=== PATIENT | female | born 1945 | race Caucasian/White ===

== ENCOUNTER 2016-06-18 19:05 | Inpatient (IN) | payer MEDICARE, OTHER ==
[2016-06-18] MEDS ORDERED: NORMAL SALINE 1000 ML 1,000 ML IV ONE (19:50)
[2016-06-18] MEDS ORDERED: ONDANSETRON 4 MG TAB.RAPDIS PO ONE (19:51)
--- NOTE | 2016-06-18 19:57 | ER Document Report ---
ED Medical Screen (RME) - General Chief Complaint: Abdominal Pain Stated Complaint: NAUSEA TRAVEL OUTSIDE OF THE [place] IN LAST 30 DAYS: No - HPI Notes: 06/18/16 19:57 Abdominal pain nausea bowel movement today was normal. - Related Data Allergies/Adverse Reactions: codeine [Codeine] Allergy (Unknown, Verified 06/18/16 19:08) morphine [Morphine] Allergy (Unknown, Verified 06/18/16 19:08) Penicillins Allergy (Unknown, Verified 06/18/16 19:08) Rash Past Medical History - Past Medical History Cardiac Medical History: Reports: Hx Hypertension Denies: Hx Coronary Artery Disease, Hx Heart Attack Pulmonary Medical History: Reports: Hx Asthma Denies: Hx Bronchitis, Hx COPD, Hx Pneumonia Neurological Medical History: Denies: Hx Cerebrovascular Accident, Hx Seizures Renal/ Medical History: Denies: Hx Peritoneal Dialysis Musculoskeltal Medical History: Reports Hx Arthritis - L.hand Past Surgical History: Reports: Hx Hysterectomy. Denies: Hx Pacemaker - Immunizations Hx Diphtheria, Pertussis, Tetanus Vaccination: Yes Review of Systems - Review of Systems Gastrointestinal: Abdominal pain, Nausea Physical Exam - Vital signs Vitals: Temp Pulse Resp BP Pulse Ox 97.6 F 89 16 189/81 H 97 06/18/16 19:10 06/18/16 19:10 06/18/16 19:10 06/18/16 19:10 06/18/16 19:10 - Respiratory Respiratory status: No respiratory distress Chest status: Nontender Breath sounds: Normal Chest palpation: Normal Course - Re-evaluation Re-evalutation: 06/18/16 19:57 I have greeted and performed a rapid initial assessment of this patient. A comprehensive ED assessment and evaluation of the patient, analysis of test results and completion of the medical decision making process will be conducted by additional ED providers. - Vital Signs Vital signs: Temp Pulse Resp BP Pulse Ox 97.6 F 89 16 189/81 H 97 06/18/16 19:10 06/18/16 19:10 06/18/16 19:10 06/18/16 19:10 06/18/16 19:10
[2016-06-18 20:16] LABS: ABSOLUTE EOSINOPHILS # (AUTO) 0.1 10^3/uL (0.0-0.6); ABSOLUTE LYMPHOCYTES (AUTO) 1.3 10^3/uL (0.5-4.7); ABSOLUTE NEUT (AUTO) 4.9 10^3/uL (1.7-8.2); BASOPHILS % (AUTO) 0.3 % (0-2); HEMATOCRIT 41.7 % (36.0-47.0); HEMOGLOBIN 14.6 g/dL (12.0-15.5); HGB HCT DIFFERENCE 2.1; LYMPHOCYTES % (AUTO) 17.5 % (13-45); MEAN CORPUSCULAR HEMOGLOBIN 30.9 pg (27.0-33.4); MEAN CORPUSCULAR VOLUME 88 fl (80-97); MONOCYTES % (AUTO) 13.2 % (3-13); RED BLOOD COUNT 4.72 10^6/uL (3.72-5.28); WHITE BLOOD COUNT 7.3 10^3/uL (4.0-10.5)
[2016-06-18 20:34] LABS: ALANINE AMINOTRANSFERASE 43 U/L (9-52); ALBUMIN 4.8 g/dL (3.5-5.0); ALKALINE PHOSPHATASE 69 U/L (38-126); ANION GAP 13 (5-19); ASPARTATE AMINO TRANSFERASE 28 U/L (14-36); BILIRUBIN,TOTAL 1.3 mg/dL (0.2-1.3); BLOOD UREA NITROGEN 13 mg/dL (7-20); CALCIUM 9.6 mg/dL (8.4-10.2); CARBON DIOXIDE 28 mmol/L (22-30); CHLORIDE 81 mmol/L (98-107); CREATININE RESULT 0.73 mg/dL (0.52-1.25); GLUCOSE 115 mg/dL (75-110); LIPASE 134.2 U/L (23-300); POTASSIUM 3.7 mmol/L (3.6-5.0); SODIUM 122.2 mmol/L (137-145); TOTAL PROTEIN 7.9 g/dL (6.3-8.2)
[2016-06-18] MEDS ORDERED: RINGERS SOLUTION,LACTATED 500 ML IV ONE (21:20)
[2016-06-18] MEDS ORDERED: PANTOPRAZOLE SODIUM 40 MG VIAL IV ONE (21:23)
[2016-06-18] MEDS ORDERED: DIPHENHYDRAMINE HCL 50 MG/ML VIAL IV ONE (21:23)
[2016-06-18] MEDS ORDERED: METOCLOPRAMIDE HCL INJ/PF 10 MG/2 ML SDV IV ONE (21:23)
--- NOTE | 2016-06-18 21:23 | ER Document Report ---
ED General - General Chief Complaint: Abdominal Pain Stated Complaint: NAUSEA Time seen by provider: 21:21 Mode of Arrival: Ambulatory Information source: Patient Notes: This is a 71-year-old female with a history of hypertension, asthma, SVT, heart murmur and a large hiatal hernia. The patient presents to the emergency room with nausea, weakness, decreased by mouth intake and feelings of dehydration. TRAVEL OUTSIDE OF THE [place] IN LAST 30 DAYS: No - HPI Onset: Last week Onset/Duration: Gradual Quality of pain: No pain Severity: None Pain Level: Denies Associated symptoms: Nausea, Other - Decreased by mouth intake. denies: Fever, Shortness of breath Exacerbated by: Denies Relieved by: Denies Similar symptoms previously: Yes Recently seen / treated by doctor: Yes - Related Data Allergies/Adverse Reactions: codeine [Codeine] Allergy (Unknown, Verified 06/18/16 19:08) morphine [Morphine] Allergy (Unknown, Verified 06/18/16 19:08) Penicillins Allergy (Unknown, Verified 06/18/16 19:08) Rash Past Medical History - General Information source: Patient - Social History Smoking Status: Never Smoker Cigarette use (# per day): No Chew tobacco use (# tins/day): No Frequency of alcohol use: None Drug Abuse: None Lives with: Spouse/Significant other Family History: None Patient has suicidal ideation: No Patient has homicidal ideation: No - Past Medical History Cardiac Medical History: Reports: Hx Hypertension Denies: Hx Coronary Artery Disease, Hx Heart Attack Pulmonary Medical History: Reports: Hx Asthma Denies: Hx Bronchitis, Hx COPD, Hx Pneumonia Neurological Medical History: Denies: Hx Cerebrovascular Accident, Hx Seizures Renal/ Medical History: Denies: Hx Peritoneal Dialysis Musculoskeltal Medical History: Reports Hx Arthritis - L.hand Past Surgical History: Reports: Hx Hysterectomy. Denies: Hx Pacemaker - Immunizations Hx Diphtheria, Pertussis, Tetanus Vaccination: Yes Review of Systems - Review of Systems Notes: Review of systems: Constitutional: Denies fever, chills. EENT: Denies ear pain, sinus tenderness, throat pain, throat swelling. Cardiovascular: Denies chest pain, palpitations, dyspnea or edema. Respiratory: Denies wheezing, cough, hemoptysis. Abdomen: See H&P Genitourinary: Denies dysuria, pyuria, hematuria, flank pain. Musculoskeletal: denies joint pain or swelling, denies back pain. Neurologic: Denies headache, photophobia, neck stiffness, weakness. Denies loss of bowel or bladder function. Denies saddle anesthesia. Skin: Denies rash, lesions. Physical Exam - Vital signs Vitals: Temp Pulse Resp BP Pulse Ox 97.6 F 89 16 189/81 H 97 06/18/16 19:10 06/18/16 19:10 06/18/16 19:10 06/18/16 19:10 06/18/16 19:10 Notes: Physical exam: GENERAL: 71-year-old female, alert and oriented 3, appears weak and dehydrated HEAD: Atraumatic, normocephalic. EYES: Pupils equal round and reactive to light, extraocular movements intact, sclera anicteric, conjunctiva are normal. ENT: TMs normal, nares patent, oropharynx clear without exudates. Drymucous membranes. NECK: Normal range of motion, supple without lymphadenopathy or JVD. LUNGS: Breath sounds clear to auscultation bilaterally and equal. No wheezes rales or rhonchi. HEART: Regular rate and rhythm without murmurs, rubs or gallops. ABDOMEN: Soft, normoactive bowel sounds. No tenderness to palpation. No guarding, no rebound. No masses appreciated. EXTREMITIES: Normal range of motion, no pitting or edema. No clubbing or cyanosis. NEUROLOGICAL: Cranial nerves II through XII grossly intact. Normal speech, normal gait. PSYCH: Normal mood, normal affect. SKIN: Warm, Dry, normal turgor, no rashes or lesions noted. Course - Vital Signs Vital signs: Temp Pulse Resp BP Pulse Ox 97.6 F 89 16 158/61 H 96 06/18/16 19:10 06/18/16 19:10 06/18/16 19:10 06/18/16 23:01 06/18/16 23:01 - Laboratory Result Diagrams: 06/18/16 20:10 06/18/16 20:10 Laboratory results interpreted by me: 06/18/16 06/18/16 20:10 20:10 Monocytes % 13.2 H Sodium 122.2 L Chloride 81 L Glucose 115 H - Diagnostic Test Radiology reviewed: Image reviewed, Reports reviewed - Abdominal x-ray showed no obstruction Critical Care Note - Critical Care Note Total time excluding time spent on procedures (mins): 60 Discharge - Discharge Clinical Impression: hyponatremia Condition: Serious Disposition: ADMITTED INPATIENT Admitting Provider: [facility] Unit Admitted: Medical Floor Referrals: SKYE WILLIS MD [Primary Care Provider] - Follow up as needed
[2016-06-19] MEDS ORDERED: ONDANSETRON HCL INJ/PF 4 MG/2 ML SDV IV PRN (04:59)
[2016-06-19] MEDS ORDERED: PREDNISOLONE ACETATE 1% OPH SUSP 5 ML OP PRN (05:11)
--- NOTE | 2016-06-19 08:15 | PDOC H&P ---
History of Present Illness Admission Date/PCP: 06/18/16 23:18 SKYE WILLIS MD Patient complains of: 2d nausea & loose stools 8qd History of Present Illness: TAIWO DAVIDSON is a 71 year old female with hypertension since 1974 and intollerance of captopril, diovan, hctz, atenolol, felodipine, amlodipine, clonidine. 3d ago she asked for an evaluation of a murmur first noted in 2009. Anesthesiologist for recent eye surgery noted it was louder. Now Na 122 on chlorthalidone 12mg & losartan 100mg daily. Past Medical History Cardiac Medical History: Reports: Hypertension, Other - 2008 holter svt Denies: Coronary Artery Disease, Myocardial Infarction Pulmonary Medical History: Reports: Asthma, Pneumonia - 2012 Denies: Chronic Obstructive Pulmonary Disease (COPD) Neurological Medical History: Denies: Seizures Endocrine Medical History: Reports: None GI Medical History: Reports: Gastroesophageal Reflux Disease, Peptic Ulcer Disease Musculoskeltal Medical History: Reports: Arthritis - L.hand Psychiatric Medical History: Reports: Other - panic Traumatic Medical History: Reports: None Hematology: Denies: Anemia Infectious Medical History: Reports: None Past Surgical History Past Surgical History: Reports: Hysterectomy, Orthopedic Surgery - fusion [id number] , Other - 3apr L pterigium Denies: Pacemaker Social History Information Source: Office Lives with: Spouse/Significant other Smoking Status: Never Smoker Frequency of Alcohol Use: None Hx Recreational Drug Use: No Drugs: None Hx Prescription Drug Abuse: No Family History Family History: None, CAD Parental Family History Reviewed: Yes Children Family History Reviewed: Yes Sibling(s) Family History Reviewed.: Yes Medication/Allergy Home Medications: Acetaminophen [Tylenol Extra Strength] 500 mg PO Q6HP PRN 02/07/12 Albuterol Sulfate [Ventolin 0.042% Neb 1.25 mg/3 mL Ampul] 1.25 mg NEB Q6HP PRN 02/07/12 Calcium/Magnesium/Vit D3 [Calcium 500 Mg Tablet] 1 each PO DAILY 02/07/12 Chlorthalidone [Chlorthalidone 25 mg Tablet] 12.5 mg PO DAILY 02/07/12 Losartan Potassium [Cozaar 100 mg Tablet] 100 mg PO DAILY 02/07/12 Ranitidine HCl [Zantac 150 mg Tablet] 150 mg PO BID 02/07/12 Cetirizine HCl [Zyrtec 10 mg Tablet] 10 mg PO DAILY 04/24/12 Polymyxin B Sulf/Trimethoprim [Polymyxin B-Tmp Eye Drops] 1 drop OP TID Prednisolone Acetate [Inflamase 1% Oph Susp 5 ml] 100 drop OP ASDIR PRN Tobramycin Sulfate [Tobrex 0.3% Oph Soln 5 ml] 1 drop OP TID 06/19/16 Allergies/Adverse Reactions: codeine [Codeine] Allergy (Unknown, Verified 06/18/16 19:08) morphine [Morphine] Allergy (Unknown, Verified 06/18/16 19:08) Penicillins Allergy (Unknown, Verified 06/18/16 19:08) Rash captopril Allergy (Verified 06/19/16 07:11) Angioneurotic Edema Review of Systems Constitutional: ABSENT: fever(s), headache(s), weight loss Eyes: PRESENT: other - has pOp L bandage contact scheduled to come off tomorrow by Dr Cuadra in [place] Nose, Mouth, and Throat: PRESENT: other - chronic nasal congestion from allergic rhinitis. ABSENT: sore throat Cardiovascular: PRESENT: palpitations - skips. ABSENT: chest pain, dyspnea on exertion, orthropnea Respiratory: PRESENT: cough, other - no wheeze. ABSENT: sputum Gastrointestinal: PRESENT: abdominal pain - epigastric cramps, heartburn, hematochezia - from painful hemorrhoid. ABSENT: constipation, diarrhea, vomiting Genitourinary: ABSENT: dysuria, hematuria Physical Exam Vital Signs: Temp Pulse Resp BP Pulse Ox 97.6 F 89 16 152/64 H 95 06/18/16 19:10 06/18/16 19:10 06/18/16 19:10 06/19/16 00:00 06/19/16 00:01 Intake & Output 06/17/16 06/18/16 06/19/16 07:59 07:59 07:59 Output Total 200 Balance -200 General appearance: PRESENT: no acute distress Mouth exam: PRESENT: moist Neck exam: ABSENT: lymphadenopathy, tenderness, thyromegaly, tracheal deviation Respiratory exam: PRESENT: clear to auscultation geeta Cardiovascular exam: PRESENT: systolic murmur. ABSENT: diastolic murmur, irregular rhythm Murmur grade: 3 - L sternal blow radiating to axilla Extremities exam: ABSENT: pedal edema Neurological exam: PRESENT: oriented to situation Psychiatric exam: PRESENT: appropriate affect Results Laboratory Results: Abnormal - 24 hr 06/18/16 06/18/16 20:10 20:10 Monocytes % 13.2 H Sodium 122.2 L Chloride 81 L Glucose 115 H Impressions: Acute Abdomen Series 06/18/16 19:51 IMPRESSION: NO RADIOGRAPHIC EVIDENCE FOR ACUTE ABDOMINAL DISEASE. Assessment & Plan - Diagnosis (1) Hyponatremia Is this a current diagnosis for this admission?: YesPlan: suspect from cholorthalidone. NS 75/h (2) Nonrheumatic mitral valve insufficiency Is this a current diagnosis for this admission?: YesPlan: echo. Consult cardiology (3) Essential (primary) hypertension Is this a current diagnosis for this admission?: YesPlan: try labetalol 100bid unless wheezing returns
[2016-06-19] MEDS ORDERED: TOBRAMYCIN SULFATE OP SCH (10:00)
[2016-06-19] MEDS ORDERED: POLYMYXIN B SULFATE/TMP OPH SOLN 10 ML OP SCH (10:00)
[2016-06-19] MEDS: CETIRIZINE 10 MG TABLET PO SCH (10:32)
[2016-06-19] MEDS: LABETALOL HCL 200 MG TABLET PO SCH ×2 (10:32→21:06)
[2016-06-19] MEDS: FAMOTIDINE INJ/PF 20 MG/2 ML SDV IV SCH ×2 (10:33→21:05)
[2016-06-19] MEDS: ENOXAPARIN SODIUM INJ 40 MG/0.4 ML DISP.SYRIN SUBCUT SCH (10:34)
--- NOTE | 2016-06-20 00:53 | CONSULTATION REPORT E ---
Consultation Report NAME: TAIWO DAVIDSON : 1945 AGE: 71Y DATE: 06/19/2016 436 A TO: JAYRO OTERO M.D. FROM: SKYE WILLIS M.D. Requesting Physician NOTE: The patient was seen from 2:30 p.m. to 3:05 p.m. for a total of 35 minutes. CHIEF COMPLAINT: Undiagnosed cardiac murmur in a patient who came in with a history of intermittent abdominal cramping/epigastric cramps with dry heaves, and also oatmeal-like diarrhea intermittently. HISTORY OF PRESENT ILLNESS: Patient is a 71-year-old female with a known history of hypertension, who presented to the hospital with epigastric cramps intermittently, lasting for about 10 to 15 minutes, with dry heaves but no vomiting. She also has been having intermittent oatmeal-like diarrhea with no blood in it. She recently had a left quadrant surgery at which time the anesthesiologist about a week ago saw her in pre-op, and discovered that the patient had a loud systolic cardiac murmur which has not been diagnosed, and hence, Cardiology consult. The patient denies any chest pain or discomfort. There is no PND, orthopnea, or leg edema. There is no dyspnea on exertion. The patient states that she has intermittent palpitations but none recently. There is no TIA or CVA symptoms. She also, as mentioned earlier, has had abdominal pain; the etiology of which is being worked up. PAST MEDICAL HISTORY: Positive for a history of hypertension. She states that in 2008 she had a Holter monitor which showed SVT, and the patient has not had any major recurrences except for occasional skipped beats and palpitations on labetalol. She has no history of congestive heart failure. Recently diagnosed cardiac murmur which is loud. She has no history of diabetes mellitus or thyroid disease. She has no history of chronic kidney disease. She has a history of GERD and history of peptic ulcer but no upper GI bleed. She has painful hemorrhoids, and from time to time she has some mild rectal bleeding. She has no history of chronic kidney disease. There are no symptoms of UTI. She has no history of hypothyroidism or diabetes mellitus. There is no history of TIA or CVA. There is no history of anxiety or depression. She has no history of chest pain or coronary artery disease or VA or anginal symptoms. No history of congestive heart failure. PAST SURGICAL HISTORY: Positive for appendectomy, tubal ligation, hysterectomy, and she had after an accident, fusion of T12-L2 vertebrae with lory and 3 pins in the back. SOCIAL HISTORY: The patient has never smoked. There is no history of EtOH abuse. There is no history of drug abuse. FAMILY HISTORY: As mentioned earlier, there is a history of hypertension in the parents. There is no major illnesses in the siblings. There is no premature coronary artery disease or sudden in the family or siblings. ALLERGIES: She states she is allergic to: 1. CODEINE. 2. MORPHINE. 3. PENICILLIN. 4. CAPTOPRIL. SHE IS ALSO INTOLERANT OF: 1. Diovan. 2. Hydrochlorothiazide. 3. Atenolol. 4. Felodipine. 5. Amlodipine. 6. Clonidine. REVIEW OF SYSTEMS: CONSTITUTIONAL: Denies any fever, chills, or rigors. HEAD: Denies any headaches or head injury. There is no dizziness. EYES: Recently she had left corneal surgery. There is no amblyopia or diplopia. No history of amaurosis fugax. EARS: No history of tinnitus. No history of vertigo. No history of recurrent ear infections. NOSE: No history of nosebleeds. No history of hay fever. No history of nasal polyps. No history of symptoms of runny nose. No history of nasal allergies. MOUTH: No history of altered taste sensation. No history of ulcers in the mouth. No history of bleeding from the gums. THROAT: No history of odynophagia or dysphagia. No history of recurrent sore throats. SKIN: She has a past history of skin cancer which has been removed surgically with no recurrence. There is no pruritus. There is no psoriasis. There is no yellowish discoloration of the skin. NECK: No history of c-spine arthritis symptoms. No history of swelling in the neck, painful or painless. No lymphadenopathy. No goiter. LUNGS: She denies any cough or wheezing. She, in 2012, had pneumonia but with no recurrence. She has no history of cough or sputum production. No history of pleuritic chest pain. No history of asthma or COPD. No history of sleep apnea. No history of pulmonary embolism. No history of hemoptysis. CARDIAC: Recently diagnosed cardiac murmur. History of hypertension, well controlled. Past history of SVT with occasional palpitations with skipped beats, so SVT has not clinically recurred on labetalol. There is no history of CAD, VA, or anginal symptoms. No history of congestive heart failure. No history of PND, orthopnea, or leg edema. MUSCULOSKELETAL: History of back pain due to surgery in the past due to an accident. She has arthritis of her left hand. There is no collagen vascular disease. RENAL: No history of chronic kidney disease. No history of hematuria, pyuria, or dysuria. No history of symptoms of UTI. ENDOCRINE: No history of diabetes mellitus. No history of heat or cold intolerance. No history of polydipsia or polyuria. No history of hypothyroidism or hyperthyroidism. GASTROINTESTINAL: History of GI *------* present. History of peptic ulcer in the past. No history of upper GI bleed. The patient has painful hemorrhoids that occasionally she has rectal bleed. No history of jaundice. No history of fatty food intolerance. No history of hepatitis. History of abdominal pain which started about last Sunday. There are intermittent cramps in the abdomen with dry heaves but no vomiting. She also has oatmeal-like diarrhea episodes. CENTRAL NERVOUS SYSTEM: No history of TIA or CVA. No history of sleep apnea. No history of headaches, migraines, or sneezes. No history of gait imbalance. PSYCHIATRIC: No history of anxiety or depression. No history of homicidal or suicidal ideation. MEDICATIONS: Include: 1. Tobramycin ophthalmic 1 drop OP t.i.d. 2. Zyrtec 10 mg daily. 3. Diphenhydramine 12.5 mg IV x1. 4. Lovenox 40 mg subcutaneous q.a.m. 5. Pepcid 20 mg IV every 12 hours. 6. Ringers Lactate has been stopped. 7. Normal saline at 250 mL/h. 8. Zofran 4 mg IV every 6 hours p.r.n. 9. Protonix 40 mg IV x1. 10. Polymyxin sulfate 1 drop OP t.i.d. 11. Prednisone acetate 1 drop OP as directed p.r.n. 12. Labetalol 100 mg p.o. every 12 hours. PHYSICAL EXAMINATION: GENERAL: The patient is well-built and well-nourished, in no acute distress at present. VITAL SIGNS: As per the nurse, she is afebrile. At 1:00 her heart rate was 34 beats per minute, blood pressure was 161/67, respirations are 18 per minute, O2 sats are 98% on room air. HEENT: Head is atraumatic, normocephalic. Eyes: Pupils are equal, round and regular, reactive to light and accommodation. Extraocular movements are normal. There is no conjunctival pallor. There is no scleral icterus. Ears: Tympanic membranes are intact. External auditory canals are clear. There are no lesions on looking in nose. There is no deviated nasal septum. There are no nasal polyps. There is no inflammation of the nasal mucous membranes. Mouth: Mucous membranes of the mouth are slightly dry. Tongue is dry. There are no ulcers in the mouth. There is no bleeding from the gums. Throat: There is no redness of the oropharynx. There are no exudates. SKIN: There are no skin rashes. There is no petechiae or ecchymosis. There are no skin lesions. NECK: Supple. There is no JVD. Carotids are equal. There is no bruit but there is a transmitted murmur from the aortic area to the carotids. There is no carotid delay. There is no lymphadenopathy. There is no goiter. Trachea is central. LUNGS: Clear to auscultation and percussion. There is no chest wall tenderness. HEART: S1 and S2 is heard. There is normal S1 in intensity. There is no S3 gallop. There is no S4 gallop. There is a systolic murmur in the aortic area which radiates to the carotids. There is no carotid delay. There is no thrill felt at the site of the murmur. A2 is well preserved. This suggests either the patient has aortic sclerosis or mild aortic stenosis. There is also a diastolic murmur in the apex with variation to the left axilla. The murmur does not radiate to the back or vertex of the head. There is no rub. ABDOMEN: At present is soft. There is mild discomfort on palpation of the epigastrium but without any rebound, guarding, or rigidity. There is no hepatosplenomegaly. Bowel sounds are well heard. EXTREMITIES: Femorals are well felt. There are no femoral bruits. Leg pulses are well felt. There is no pedal edema. There is no DVT or cellulitis. There is no calf tenderness. There is no cyanosis or clubbing. There is no cellulitis or DVT. CENTRAL NERVOUS SYSTEM: The patient is conscious, awake, alert and oriented x3 with no focal deficits. PSYCHIATRIC: The patient's judgment and insight are intact. Her affect is normal. LABOROATORY DATA: The patient's white count is 7,300, hemoglobin is 14.6, hematocrit is 41.7, and the platelet count is 173,000. Yesterday her sodium was low at 122.2, potassium 3.7, chloride 81, CO2 is 28, the patient's BUN is 13, creatinine is 0.73. GFR is greater than 60. Her random blood sugar was 115. Her lactate acid was normal at 1.3. Her calcium was 9.6. Her liver function tests are normal. Amylase is normal at 134.2. Her total protein is 7.9. Her albumin is 4.8. The patient's acute abdominal series shows lungs are clear for any infiltrates. There is no abnormal gas collection. No dilated loops of air fluid levels. No suspicions for calcifications. She has thoracolumbar fusion surgery. There are no other acute findings. Note that the patient has not yet had an EKG. We will get one tomorrow. IMPRESSION: 1. Systolic murmur of aortic sclerosis versus mild aortic stenosis. 2. Systolic murmur of mitral regurgitation which clinically is mild to moderate. 3. Abdominal pain with diarrhea and nausea. Etiology to be determined. 4. Hypertension. Patient's blood pressure is not well controlled. 5. Dehydration secondary to patient's diarrhea. 6. Past history of SVT with no clinical recurrence. 7. History of hemorrhoids. 8. GERD. 9. History of peptic ulcer disease. 10. Hyponatremia. PLAN: 1. Would recommend that the patient at present in no major distress but will need an echocardiogram to assess the aortic sclerosis versus aortic stenosis murmur, and also to assess the severity of the mitral regurgitation murmur. 2. Continue IV fluids with normal saline to correct the patient's dehydration and to correct the patient's hyponatremia. The patient has multiple intolerances to medications. GI workup as per Dr. Willis who is taking care of the patient. CODE STATUS: The patient is a FULL CODE. Her is her surrogate healthcare decision maker. Later, after the diagnosis, we will discuss more with the patient about advanced care planning. Note: This case involves moderately complex decision making in assessing the murmurs. Would need echocardiogram to corroborate my clinical findings. The patient is allergic to a lot of medications; hence, it will be difficult to treat the patient. The patient is going to undergo GI workup. TIME SPENT: Twenty-five minutes spent on this patient. The patient was seen from 2:30 p.m. to 3:05 p.m. on 06/19/16. We will follow up with the echo; the echo has not yet been done. Also, we will get an EKG in the morning. Also, we will get labs in the morning to see if the hyponatremia is being corrected. Discussed with the patient and discussed with Dr. Willis. Medications are reviewed. We will check an EKG in the morning and check her Chem-7 in the morning. Also would recommend a stool workup. Note that the patient states she has not been on any oral antibiotics recently; hence, a stool study for a C. difficile toxin may not be useful. DICTATING PHYSICIAN: JAYRO OTERO M.D. [id number] PHY#: [id number] ID: [id number] JOB#: [id number] ACCT: [id number] cc:JAYRO OTERO M.D. >
[2016-06-20] MEDS: NORMAL SALINE 1000 ML 1,000 ML IV PRN (01:29)
[2016-06-20 06:11] LABS: ANION GAP 11 (5-19); BLOOD UREA NITROGEN 11 mg/dL (7-20); CALCIUM 9.3 mg/dL (8.4-10.2); CARBON DIOXIDE 28 mmol/L (22-30); CHLORIDE 93 mmol/L (98-107); CREATININE RESULT 0.81 mg/dL (0.52-1.25); GLUCOSE 104 mg/dL (75-110); POTASSIUM 3.8 mmol/L (3.6-5.0); SODIUM 132.4 mmol/L (137-145)
--- NOTE | 2016-06-20 07:28 | PDOC PROGRESS REPORT ---
Subjective Progress Note for:: 06/20/16 Subjective:: no more nausea or loose stools. Just gave formed stool sample for culture. Fleeting cramps. Physical Exam Vital Signs: Temp Pulse Resp BP Pulse Ox 98.3 F 67 17 125/62 97 06/20/16 03:28 06/20/16 03:28 06/20/16 03:28 06/20/16 03:28 06/20/16 03:28 Intake & Output 06/18/16 06/19/16 06/20/16 07:59 07:59 07:59 Intake Total 1500 Output Total 200 Balance -200 1500 Weight 119 lb 14.903 oz General appearance: PRESENT: no acute distress Respiratory exam: PRESENT: clear to auscultation geeta Cardiovascular exam: PRESENT: RRR, systolic murmur Murmur grade: 3 - L sternal blow radiating to axilla and aortic ejection radiating to carotids. GI/Abdominal exam: ABSENT: mass, organolmegaly, tenderness Extremities exam: ABSENT: pedal edema Neurological exam: PRESENT: oriented to situation Psychiatric exam: PRESENT: appropriate affect Results Laboratory Results: 06/20/16 05:28 06/20/16 05:28 Sodium 132.4 L Potassium 3.8 Chloride 93 L Carbon Dioxide 28 Anion Gap 11 BUN 11 Creatinine 0.81 Est GFR ( Amer) > 60 Est GFR (Non-Af Amer) > 60 Glucose 104 Calcium 9.3 Impressions: Acute Abdomen Series 06/18/16 19:51 IMPRESSION: NO RADIOGRAPHIC EVIDENCE FOR ACUTE ABDOMINAL DISEASE. Assessment & Plan - Diagnosis (1) Hyponatremia Is this a current diagnosis for this admission?: YesPlan: Na improved off chlorthalidone. (2) Nonrheumatic mitral valve insufficiency Is this a current diagnosis for this admission?: YesPlan: echo: La normal. Ventricular stiffness absent. MR present. Lv normal. Ejection 75. AR absent. [id number]=5.9-2.4cm2. Rvp normal. So has aortic sclerosis & mitral regurg. Full report to follow. (3) Essential (primary) hypertension Is this a current diagnosis for this admission?: YesPlan: tolerating labetalol 100bid without avril or wheeze so far. (4) Amyloid pterygium of left eye Is this a current diagnosis for this admission?: YesPlan: bandage contact due to come off. Consulting Sheree.
--- NOTE | 2016-06-20 08:19 | EKG REPORT ---
SEVERITY:- ABNORMAL ECG - SINUS RHYTHM PROBABLE LEFT ATRIAL ABNORMALITY LEFT AXIS DEVIATION LEFT VENTRICULAR HYPERTROPHY ANTERIOR INFARCT, AGE INDETERMINATE : Confirmed by: Cody Graff MD 20-Jun-2016 08:18:01
[2016-06-20] MEDS: ENOXAPARIN SODIUM INJ 40 MG/0.4 ML DISP.SYRIN SUBCUT SCH (08:21)
[2016-06-20] MEDS: LABETALOL HCL 200 MG TABLET PO SCH (09:57)
[2016-06-20] MEDS: CETIRIZINE 10 MG TABLET PO SCH (09:57)
[2016-06-20] MEDS ORDERED: (PENDING PHARMACY ID) (Ranitidine Hcl [Zantac 150 Mg Tablet] 150 MG) PO SCH (10:00)
[2016-06-20] MEDS: FAMOTIDINE 20 MG TABLET PO SCH ×2 (12:22→21:22)
--- NOTE | 2016-06-21 00:34 | PROGRESS NOTE E ---
Progress Note NAME: TAIWO DAVIDSON : 1945 AGE: 71Y DATE: 06/20/2016 ROOM: 436 SUBJECTIVE: The patient was seen from 1:30 p.m. to 2:15 p.m., a total of 45 minutes spent on the patient, which included detailed discussion of her echocardiogram. The patient denies any further abdominal pain, there is no diarrhea. There are no palpitations. There are no arrhythmias on the monitor. There is no chest pain or discomfort. There is no shortness of breath. There is no PND or orthopnea. The patient claims that she walks daily, at least 40-45 minutes without any problems. There is no history of syncope. She has occasional skipped beats but no episodes of palpitations except when she was diagnosed with SVT in 2008. There are no TIA or CVA symptoms. There is no wheezing, cough or sputum production. There is no dizziness or syncope. OBJECTIVE: GENERAL: The patient is well-built and well-nourished, in no acute distress. VITAL SIGNS: Earlier at 12:03, her temperature was 98.7 orally. Pulse was 63 beats per minute, blood pressure 107/66. Her respiratory rate is 14 per minute and O2 sats are 99% on room air. HEENT: Head is atraumatic, normocephalic. Eyes: Pupils are equal, round and regular, reactive to light and accommodation. Extraocular movements are normal. There is no conjunctival pallor. There is no scleral icterus. Ears: Tympanic membranes are intact. External auditory canals are clear. Nose: There are no nasal lesions in nose. There is no deviated nasal septum. There are no nasal polyps. There is no inflammation of the nasal mucous membranes. Mouth: Mucous membranes of the mouth are moist. Tongue is moist. There are no ulcers in the mouth. There is no bleeding from the gums. Throat: There is no redness of the oropharynx. There are no exudates. SKIN: There are no skin rashes. There is no petechiae or ecchymosis. There are no skin lesions. NECK: Supple. There is no JVD. Carotids are equal. There is no bruit but there is a transmitted murmur from the aortic area to the carotids. There is no carotid delay. There is no lymphadenopathy. There is no goiter. Trachea is central. LUNGS: Clear to auscultation and percussion. There is no chest wall tenderness. HEART: S1 and S2 is heard. The S1 is of normal intensity. There is no S3 gallop. There is no S4 gallop. There is no mitral valve prolapse click heard. There is a systolic murmur in the aortic area which radiates to the carotids. There is no carotid delay. There is no thrill felt at the site of the murmur. The murmur increases with Valsalva maneuver. A2 is well preserved. There is a systolic murmur in the apex with radiation to the left axilla. The murmur does not radiate to the back vertex of the head. This is consistent with mitral regurgitation. There is no rub. ABDOMEN: Soft. There is tenderness on palpation. There is no discomfort on palpation of the epigastrium. There is no rebound, guarding or rigidity. Bowel sounds are well heard. EXTREMITIES: Femorals are well felt. There are no femoral bruits. Leg pulses are well felt. There is no pedal edema. There is no DVT or cellulitis. There is no calf tenderness. There is no cyanosis or clubbing. There is no cellulitis or DVT. CENTRAL NERVOUS SYSTEM: The patient is conscious, awake, alert and oriented x3 with no focal deficits. PSYCHIATRIC: The patient's judgment and insight are intact. Her affect is normal. LABORATORY DATA: The patient's EKG shows sinus rhythm, probable left atrial abnormality, left axis deviation. Anterior MO versus lead placement causing poor R-waves in V1-V4. The patient's sodium has come up to 132.4 from prior 122.4. The patient's potassium is normal at 3.8, chloride is 93, CO2 is 28, the patient's BUN is 11, creatinine is 0.81. GFR is greater than 60. Glucose is 104. Her calcium is 9.3. The echo is not a good quality study but shows evidence of IHSS. What is read on the initial echo done yesterday was that there was aortic valve peak gradient of 85 but when I visualized the echo while reading the echo, there was some mild aortic sclerosis but the aortic valve opened well. There was definitely asymmetric septal hypertrophy which on the echo of 06/19/2016 was underestimated. There was systolic anterior motion of the mitral valve leaflet. There was moderate mitral regurgitation. There was normal left ventricular contractility with no wall motion abnormality. Hence, I made the coal gasification technician repeat certain studies, especially to look for mitral valve prolapse and also to look for the LVOT gradient in a lying down position and also doing a Valsalva maneuver when the patient was standing. As such, it showed that the resting LVOT gradient was around 84-85 and with Valsalva, it increased to 263 mmHg, consistent with IHSS, but needs a GRACIELA to make sure since this is not a very good quality study. IMPRESSION: 1. THE PATIENT HAS IDIOPATHIC HYPERTROPHIC SUBAORTIC STENOSIS/LVOC OBSTRUCTION, WHICH IS SEVERE RESTING LVOT GRADIENT WHICH INCREASES WITH VALSALVA MANEUVER. The plan is to send the patient to certain cardiologists who specialize in IHSS/left ventricular obstructive cardiomyopathy. Also she would need a GRACIELA to make sure that these findings are accurate since the quality is not a good study. 2. SYSTOLIC MURMUR OF AORTIC SCLEROSIS PRESENT. 3. SYSTOLIC MURMUR OF MODERATE MITRAL REGURGITATION BY ECHO. 4. ABDOMINAL PAIN WITH DIARRHEA AND NAUSEA. Seems to have resolved. Etiology not clear. A C. difficile toxin was negative. 5. HYPERTENSION. Blood pressure is well controlled. 6. DEHYDRATION SECONDARY TO PATIENT'S DIARRHEA, WHICH SEEMS TO HAVE RESOLVED. 7. PAST HISTORY OF SVT WITH NO CLINICAL RECURRENCE. 8. HISTORY OF HEMORRHOIDS. 9. GERD. 10. HISTORY OF PEPTIC ULCER DISEASE. 11. HYPONATREMIA. The sodium has come up with hydration from 122.2 to 132.4, which is a movement in the right direction. The patient is asymptomatic from her hyponatremia, even when her sodium is 122.2. PLAN/RECOMMENDATION: Would recommend stopping the labetalol and putting the patient on verapamil 40 mg p.o. q.8 h. and increasing it is tolerated and converting it to the long-acting verapamil but the dose given p.o. Also, would have the patient see a specialist either at [facility] or a specialist in [facility] who specializes in case of IHSS, since there are much treatment options such as ablation of the septal hydroelectric powerplant supervisor, myomectomy, and also the option of putting her on disopyramide. Also, there at present I do not think there is a need for mitral valve replacement. Also one of the considerations is to put a pacemaker in so that the septal direction of contraction vary and lessen the LVOC obstruction. The patient should avoid dehydration, should avoid nitrates, and any vasodilatory agents such as hydralazine, lisinopril, etc. Note, labetalol has got both beta-blocking and alpha-1 blocking agent and its myocardial depression activity is not high; hence, since the patient has not tolerated a beta-stephanie and she is allergic to amlodipine, we will try to start the patient on Calan from tomorrow. This has been discussed in detail with the patient who is in agreement. I have discussed this with Dr. Baez, who is the attending physician that the patient needs to be seen by a coke inspector who specializes in cases of IHSS, which *------*. Also, I have discussed with the patient that she needs to take SBE prophylaxis prior to dental, GI, surgery to prevent bacterial endocarditis as prophylaxis. Note, this case is of very high medical decision making complexity in view of the patient's IHSS. As mentioned earlier, 45 minutes spent on this patient with more than 50% of the time spent on reviewing the patient's medications. Since the patient has had multiple intolerances, will start the patient on Calan in the morning at a dose of 40 mg p.o. q.8 h. Also, the patient should have a 30-day event monitor to see if she has any runs of asymptomatic ventricular tachycardia in which case she may need AICD, since this is one of the causes of sudden in IHSS. I have asked the to call me since the echo was not ready when I saw the patient, but later I can in and spoke to the patient fully about the echocardiogram. Discussed this with Dr. Baez also. Note, more than 50% of the time spent on direct patient care and also reviewing the patient's medications and discontinuing the patient's labetalol and starting the patient on Calan; hence, more than 50% of the time was spent on direct patient care. The patient will follow up with me and I will try to find a coke inspector in [place] or [facility] who specializes in IHSS/left ventricular obstructive cardiomyopathy. Thanking you. Will follow with you. DICTATING PHYSICIAN: JAYRO OTERO M.D. [id number] PHY#: [id number] ID: [id number] JOB#: [id number] ACCT: [id number] cc: >
[2016-06-21] MEDS: NORMAL SALINE 1000 ML 1,000 ML IV PRN (04:49)
[2016-06-21] MEDS ORDERED: VERAPAMIL HCL 80 MG TABLET ONE (05:56)
[2016-06-21] MEDS ORDERED: VERAPAMIL HCL 80 MG TABLET PO SCH (06:00)
[2016-06-21 06:17] LABS: ANION GAP 8 (5-19); BLOOD UREA NITROGEN 12 mg/dL (7-20); CALCIUM 8.9 mg/dL (8.4-10.2); CARBON DIOXIDE 27 mmol/L (22-30); CHLORIDE 99 mmol/L (98-107); CREATININE RESULT 0.64 mg/dL (0.52-1.25); GLUCOSE 87 mg/dL (75-110); POTASSIUM 3.4 mmol/L (3.6-5.0); SODIUM 134.4 mmol/L (137-145)
[2016-06-21] MEDS: ENOXAPARIN SODIUM INJ 40 MG/0.4 ML DISP.SYRIN SUBCUT SCH (07:43)
[2016-06-21 07:53] VITALS: BP 125/54
[2016-06-21] MEDS: CETIRIZINE 10 MG TABLET PO SCH (09:04)
[2016-06-21] MEDS: FAMOTIDINE 20 MG TABLET PO SCH (09:04)
--- NOTE | 2016-06-21 09:57 | PDOC DISCHARGE SUMMARY ---
General - Admit/Disc Date/PCP Admission Date/Primary Care Provider: 06/18/16 23:18 SKYE WILLIS MD Discharge Date: 06/21/16 - Discharge Diagnosis (1) Hyponatremia Is this a current diagnosis for this admission?: YesSummary: 134 on NS (2) Nonrheumatic mitral valve insufficiency Is this a current diagnosis for this admission?: YesSummary: moderate (3) Essential (primary) hypertension Is this a current diagnosis for this admission?: YesSummary: verapamil (4) Amyloid pterygium of left eye Is this a current diagnosis for this admission?: YesSummary: Dr Krause will see in office today. (5) Obstructive hypertrophic cardiomyopathy Is this a current diagnosis for this admission?: YesSummary: gradient 263 standing & valsalva. Dr Pack suggested verapamil, isamar, 30d monitor , SBE prophylaxis, and possible consultation at [facility] or [place]. - Additional Information Resuscitation Status: Full Code Discharge Diet: Cardiac Discharge Activity: Activity As Tolerated Home Medications: Acetaminophen [Tylenol Extra Strength 500 mg Tablet] 500 mg PO Q6HP PRN Cetirizine HCl [Zyrtec 10 mg Tablet] 10 mg PO DAILY 06/20/16 Ranitidine HCl [Zantac 150 mg Tablet] 150 mg PO BID 06/20/16 Polymyxin B Sulfate/Tmp [Polytrim Oph Soln 10 ml] 1 drop OP TID #0 bottle Prednisolone Acetate [Inflamase 1% Oph Susp 5 ml] 100 drop OP ASDIR PRN #0 bottle 06/21/16 Tobramycin Sulfate 1 drop OP TID 06/21/16 Verapamil HCl [Calan 80 mg Tablet] 40 mg PO Q8 #45 tablet 06/21/16 History of Present Illness History of Present Illness: TAIWO DAVIDSON is a 71 year old female with hypertension since 1974 and intollerance of captopril, diovan, hctz, atenolol, felodipine, amlodipine, clonidine. 3d ago she asked for an evaluation of a murmur first noted in 2009. Anesthesiologist for recent eye surgery noted it was louder. Now Na 122 on chlorthalidone 12mg & losartan 100mg daily. Hospital Course Hospital Course: see above Physical Exam Vital Signs: Temp Pulse Resp BP Pulse Ox 98.8 F 67 16 125/54 L 96 06/21/16 07:35 06/21/16 07:35 06/21/16 07:35 06/21/16 07:35 06/21/16 07:35 Intake & Output 06/20/16 06/21/16 06/22/16 07:59 07:59 07:59 Intake Total 1500 3840 Balance 1500 3840 Weight 119 lb 14.903 oz 123 lb 3.814 oz General appearance: PRESENT: no acute distress Cardiovascular exam: PRESENT: systolic murmur. ABSENT: diastolic murmur, irregular rhythm Murmur grade: 3 - L sternal blow radiating to axilla and aortic ejection radiating to carotids. Extremities exam: ABSENT: pedal edema Neurological exam: PRESENT: oriented to situation Psychiatric exam: PRESENT: appropriate affect Results Laboratory Results: 06/21/16 05:15 06/21/16 05:15 Sodium 134.4 L Potassium 3.4 L Chloride 99 Carbon Dioxide 27 Anion Gap 8 BUN 12 Creatinine 0.64 Est GFR ( Amer) > 60 Est GFR (Non-Af Amer) > 60 Glucose 87 Calcium 8.9 Impressions: Acute Abdomen Series 06/18/16 19:51 IMPRESSION: NO RADIOGRAPHIC EVIDENCE FOR ACUTE ABDOMINAL DISEASE. Plan Discharge Plan: home. 6d ov . 7d ov Jessica
--- NOTE | 2016-06-25 12:10 | XCELERA REPORT ---
[address] [address] Transthoracic Echocardiogram Report Name: TAIWO DAVIDSON Age: 71 yrs Gender: Female : 1945 Patient Status: Inpatient Patient Location: \S\[facility]\S\A Study Date: 06/19/2016 02:36 PM Height: 63 in Weight: 120 lb BSA: 1.6 m2 Procedure: A two-dimensional transthoracic echocardiogram with color flow and Doppler was performed. Main study done on 06/19/16.Appended images and measurements done on 06/20/16. Study Quality: Technically suboptimal. Reason For Study: MURMUR. History: MURMUR. Ordering Physician: SKYE WILLIS Performed By: Ellie Muniz Interpretation Summary Recommenmd Bacterial Endocarditis Prophylaxis with antibiotics , prior to GI,,and dental surgery /procedures. Main study done on 06/19/16.Appended images and measurements done on 06/20/16. The left ventricle is normal in size. There is severe asymmetric left ventricular hypertrophy. Doppler measurements suggest normal left ventricular diastolic function IVS= 16 mm ,PW=12 mm .There is 'OTTO' and resting LVOT gradient of 82 mm off Hg , and after valsalve it goes uoto 263.There is HOCM.But needs GRACIELA to be sure. LV EF is 70% Left ventricular systolic function is normal. The left ventricular wall motion is normal. The right ventricle is not well visualized secondary to technical limitations Probably LA is mildly enlarged. There is subtle prolapse of anterior MV leaflet which is more prominent after Valsalva maneuver. There is no mitral valve stenosis. There is a moderate amount of mitral regurgitation There is systolic anterior motion of the mitral valve. Visually no .NO AR.There is LVOT obstruction. There is no tricuspid stenosis. No tricuspid regurgitation. Cannot calculate RVSP due to insufficient TR jet. There is no pericardial effusion. Recommenmd Bacterial Endocarditis Prophylaxis with antibiotics , prior to GI,,and dental surgery /procedures. MMode/2D Measurements \T\ Calculations RVDd: 2.4 cm LVIDd: 3.6 cm FS: 35.2 % Ao root diam: IVSd: 1.6 cm LVIDs: 2.3 cm EDV(Teich): 2.6 cm LVPWd: 1.1 cm 54.4 ml Ao root area: ESV(Teich): 18.8 ml 5.4 cm2 EF(Teich): LA dimension: 65.5 % 3.3 cm LVOT diam: 2.0 cm LA A2Cs: LA A4Cs: LA length: 6.1 cm LVOT area: 3.1 cm2 21.1 cm2 25.9 cm2 LA Vol Index (BP): LA Volume: 76.3 ml 49.0 ml/m2 Doppler Measurements \T\ Calculations MV E max willow: MV P1/2t max willow: Ao V2 max: LV V1 max P.5 cm/sec 115.5 cm/sec 539.4 cm/sec 31.7 mmHg MV A max willow: MV P1/2t: 50.4 msec Ao max PG: LV V1 mean P.6 cm/sec MVA(P1/2t): 4.4 cm2 125.9 mmHg 21.0 mmHg MV E/A: 1.7 MV dec slope: Ao V2 mean: LV V1 max: 268.0 cm/sec 281.1 cm/sec 671.7 cm/sec2 Ao mean PG: LV V1 mean: 37.0 mmHg 213.0 cm/sec Ao V2 VTI: LV V1 VTI: 96.6 cm 76.2 cm DAVID(I,D): 2.4 cm2LV dP/dt: 909.0 mmHg/s DAVID(V,D): 1.6 cm2 SV(LVOT): 236.4 ml PA V2 max: 95.8 cm/sec PA max P.7 mmHg Left Ventricle The left ventricle is normal in size. IVS= 16 mm ,PW=12 mm .There is 'OTTO' and resting LVOT gradient of 82 mm off Hg , and after valsalve it goes uoto 263.There is HOCM.But needs GRACIELA to be sure. There is severe asymmetric left ventricular hypertrophy. LV EF is 70%. Left ventricular systolic function is normal. Doppler measurements suggest normal left ventricular diastolic function. The left ventricular wall motion is normal. There is no thrombus. Right Ventricle The right ventricle is not well visualized secondary to technical limitations. Atria The right atrium is normal. Probably LA is mildly enlarged. Mitral Valve There is systolic anterior motion of the mitral valve. There is no vegetation seen on the mitral valve. There is subtle prolapse of anterior MV leaflet which is more prominent after Valsalva maneuver. There is no mitral valve stenosis. There is a moderate amount of mitral regurgitation. Aortic Valve There is no aortic valvular vegetation. Visually no .NO AR.There is LVOT obstruction. Tricuspid Valve There is no tricuspid stenosis. No tricuspid regurgitation. Cannot calculate RVSP due to insufficient TR jet. Pulmonic Valve The pulmonic valve is not well visualized. Great Vessels The aortic root is not well visualized but is probably normal size. Effusions There is no pericardial effusion. : SKYE WILLIS > Chio Ibrahim
== END 2016-06-21 09:18 | disposition home or self-care (01) | DRG 641 ==
LOC: ER 19:05 → EH 23:18 → 4S 06-19 15:35
PROVIDERS: ADMIT Family Medicine; ATTEND Family Medicine
DX: E87.1 Hypo-osmolality and hyponatremia (principal); I42.1 Obstructive hypertrophic cardiomyopathy; E86.0 Dehydration; I10 Essential (primary) hypertension; K44.9 Diaphragmatic hernia without obstruction or gangrene; J45.909 Unspecified asthma, uncomplicated; H11.012 Amyloid pterygium of left eye; K21.9 Gastro-esophageal reflux disease without esophagitis; I08.0 Rheumatic disorders of both mitral and aortic valves
CPT/HCPCS: 36415; 74022; 80048; 80053; 83605; 83690; 85025; 87045; 87205; 87493; 93005; 93010; 93306; 96374; 96375; 99285; J1200; J1650; J2765; J3490; J7030; J7120; S0028; S0119; S0164

== ENCOUNTER 2016-06-22 02:38 | Observation (INO) | payer MEDICARE, OTHER ==
--- NOTE | 2016-06-22 03:01 | ER Document Report ---
ED General - General Stated Complaint: weakness Time seen by provider: 03:00 Notes: Patient is a 71-year-old female that comes emergency department with chief complaint of awakening tonight feeling lightheaded, feeling suddenly nauseated, feeling shaky, feeling like there is something stuck in her throat, and feeling weak. She states this has happened to her before when she took pills close to bedtime. Patient states earlier in the day she had felt some shortness of breath and had used her inhaler, denies current shortness of breath. She denies syncope, chest pain, abdominal pain. She states she has had several episodes of diarrhea today. Patient was discharged from this hospital facility yesterday. She states she was started on new blood pressure medication and she is not sure which this was. She was admitted for hyponatremia. Past medical history of hypertension, asthma, GERD. TRAVEL OUTSIDE OF THE [place] IN LAST 30 DAYS: No - Related Data Allergies/Adverse Reactions: codeine [Codeine] Allergy (Unknown, Verified 06/18/16 19:08) morphine [Morphine] Allergy (Unknown, Verified 06/18/16 19:08) Penicillins Allergy (Unknown, Verified 06/18/16 19:08) Rash captopril Allergy (Verified 06/19/16 07:11) Angioneurotic Edema Past Medical History - General Information source: Patient - Social History Smoking Status: Never Smoker Frequency of alcohol use: None Drug Abuse: None Lives with: Family Family History: None, CAD - Past Medical History Cardiac Medical History: Reports: Hx Hypertension Denies: Hx Coronary Artery Disease, Hx Heart Attack Pulmonary Medical History: Reports: Hx Asthma, Hx Pneumonia - 2012 Denies: Hx Bronchitis, Hx COPD Neurological Medical History: Denies: Hx Cerebrovascular Accident, Hx Seizures Renal/ Medical History: Denies: Hx Peritoneal Dialysis GI Medical History: Reports: Hx Gastroesophageal Reflux Disease Musculoskeltal Medical History: 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 Denies: Hx Pacemaker - Immunizations Hx Diphtheria, Pertussis, Tetanus Vaccination: Yes Review of Systems - Review of Systems Constitutional: No symptoms reported EENT: No symptoms reported Cardiovascular: See HPI Respiratory: See HPI Gastrointestinal: See HPI Genitourinary: No symptoms reported Female Genitourinary: No symptoms reported Musculoskeletal: No symptoms reported Skin: No symptoms reported Hematologic/Lymphatic: No symptoms reported Neurological/Psychological: No symptoms reported Physical Exam - Vital signs Interpretation: Normal - General General appearance: Appears well, Alert In distress: None - HEENT Head: Normocephalic, Atraumatic Eyes: Normal Conjunctiva: Normal Extraocular movements intact: Yes Eyelashes: Normal Pupils: PERRL Nasal: Normal Mouth/Lips: Normal Mucous membranes: Normal Pharynx: Normal Neck: Normal - Respiratory Respiratory status: No respiratory distress Chest status: Nontender Breath sounds: Normal. No: Decreased air movement Chest palpation: Normal - Cardiovascular Rhythm: Regular. No: Tachycardia Heart sounds: Normal auscultation, S1 appreciated, S2 appreciated Murmur: Yes - 2/6 heard throughout - Abdominal Inspection: Normal Distension: No distension Bowel sounds: Normal Tenderness: Nontender Organomegaly: No organomegaly - Back Back: Normal, Nontender - Extremities General upper extremity: Normal inspection, Nontender, Normal color, Normal ROM , Normal temperature General lower extremity: Normal inspection, Nontender, Normal color, Normal ROM , Normal temperature, Normal weight bearing. No: Marcio's sign - Neurological Neuro grossly intact: Yes Cognition: Normal Orientation: AAOx4 [place] Coma Scale Eye Opening: Spontaneous [place] Coma Scale Verbal: Oriented [place] Coma Scale Motor: Obeys Commands [place] Coma Scale Total: 15 Speech: Normal Motor strength normal: LUE, RUE, LLE, RLE Sensory: Normal - Psychological Associated symptoms: Normal affect, Normal mood - Skin Skin Temperature: Warm Skin Moisture: Dry Skin Color: Normal Course - Re-evaluation Re-evalutation: Review of records show patient was started on verapamil for hypertension, stopped chlorthalidone as suspected cause of hyponatremia, patient with hypertrophic cardiomyopathy with obstruction noted. EKG showing sinus rhythm, there is questionable slight depression in the lateral lead compared to prior, this is not consecutive, there is no ST elevation, there are no reciprocal changes, there are no T-wave inversions in consecutive leads. No significant hyponatremia, workup generally unremarkable, chest x-ray generally unremarkable with no overt acute abnormalities. Patient asymptomatic on reevaluation is. Troponin is indeterminate the elevated at 0.024. Will cycle. 06/22/16 Accidentally ordered magnesium and BiPAP, this was intended for another patient , this was immediately canceled. 06/22/[address] Samuels, recommends if repeat troponin is unremarkable patient can go home because she has very close cardiology follow-up already arranged, patient states she really wants to go home. Report given at bedside to Asaf SCHROEDER pending repeat troponin. - Laboratory Result Diagrams: 06/22/16 03:39 06/22/16 03:39 Laboratory results interpreted by me: 06/22/16 06/22/16 06/22/16 03:20 03:39 03:39 Hct 34.0 L Lymphocytes % 8.0 L Sodium 136.6 L Potassium 3.4 L Total Bilirubin 1.7 H Urine Ketones TRACE H Ur Leukocyte Esterase SMALL H Discharge - Discharge Clinical Impression: Nausea, Episodic lightheadedness Condition: Stable Disposition: HOME, SELF-CARE Additional Instructions: Workup did not show any acute abnormalities. Please follow-up closely with primary care and cardiology as planned. Return to the emergency department for any returned or worsening symptoms. Referrals: JAYRO OTERO MD [ACTIVE STAFF] - Follow up as needed
[2016-06-22] MEDS ORDERED: NORMAL SALINE 1000 ML 500 ML IV ONE (03:25)
[2016-06-22 04:00] LABS: ABSOLUTE BASOPHILS # (AUTO) 0.1 10^3/uL (0.0-0.2); ABSOLUTE EOSINOPHILS # (AUTO) 0.1 10^3/uL (0.0-0.6); ABSOLUTE LYMPHOCYTES (AUTO) 0.7 10^3/uL (0.5-4.7); ABSOLUTE MONOCYTES (AUTO) 1.1 10^3/uL (0.1-1.4); ABSOLUTE NEUT (AUTO) 7.2 10^3/uL (1.7-8.2); BASOPHILS % (AUTO) 0.9 % (0-2); EOSINOPHILS % (AUTO) 1.5 % (0-6); HEMOGLOBIN 12.2 g/dL (12.0-15.5); HGB HCT DIFFERENCE 2.6; MEAN CORPUSCULAR HEMOGLOBIN 31.8 pg (27.0-33.4); MEAN CORPUSCULAR HGB CONC 35.9 g/dL (32.0-36.0); MEAN CORPUSCULAR VOLUME 89 fl (80-97); MONOCYTES % (AUTO) 11.6 % (3-13); RED BLOOD COUNT 3.84 10^6/uL (3.72-5.28); RED CELL DISTRIBUTION WIDTH 13.1 % (11.5-14.0); WHITE BLOOD COUNT 9.3 10^3/uL (4.0-10.5)
[2016-06-22 04:17] LABS: ALANINE AMINOTRANSFERASE 38 U/L (9-52); ALBUMIN 4.1 g/dL (3.5-5.0); ALKALINE PHOSPHATASE 61 U/L (38-126); ANION GAP 11 (5-19); ASPARTATE AMINO TRANSFERASE 24 U/L (14-36); BILIRUBIN,DIRECT 0.2 mg/dL (0.0-0.4); BILIRUBIN,TOTAL 1.7 mg/dL (0.2-1.3); BLOOD UREA NITROGEN 11 mg/dL (7-20); CALCIUM 9.1 mg/dL (8.4-10.2); CARBON DIOXIDE 28 mmol/L (22-30); CHLORIDE 98 mmol/L (98-107); CREATINE KINASE 74 U/L (30-135); CREATININE RESULT 0.74 mg/dL (0.52-1.25); GLUCOSE 97 mg/dL (75-110); POTASSIUM 3.4 mmol/L (3.6-5.0); SODIUM 136.6 mmol/L (137-145); TOTAL PROTEIN 6.9 g/dL (6.3-8.2)
[2016-06-22 04:30] LABS: CREATINE KINASE MB 0.76 ng/mL (<4.55); TROPONIN I 0.026 ng/mL
[2016-06-22] MEDS ORDERED: MAGNESIUM SULFATE/D5W 100 ML IV SCH (05:45)
[2016-06-22 06:27] LABS: APPEARANCE,URINE CLEAR; BILIRUBIN,URINE NEGATIVE (NEGATIVE); GLUCOSE, URINE NEGATIVE (NEGATIVE); KETONES,URINE TRACE mg/dL (NEGATIVE); LEUKOCYTE ESTERASE,URINE SMALL (NEGATIVE); NITRITE,URINE NEGATIVE (NEGATIVE); PROTEIN,URINE NEGATIVE (NEGATIVE); URINE SPECIFIC GRAVITY 1.005; UROBILINOGEN,URINE NEGATIVE mg/dL (<2.0)
[2016-06-22] MEDS ORDERED: MAGNESIUM SULFATE/D5W 2 GM/200 ML RTUPB IV ONE (06:34)
--- NOTE | 2016-06-22 08:08 | ER Document Report ---
Doctor's Note Notes: I have discussed this patient with the mid-level provider, Jose, and was available for consultation throughout the patient's ED admission. 06/22/16 08:07
--- NOTE | 2016-06-22 08:32 | EKG REPORT ---
SEVERITY:- ABNORMAL ECG - SINUS RHYTHM PROBABLE LEFT ATRIAL ABNORMALITY LVH WITH SECONDARY REPOLARIZATION ABNORMALITY PROBABLE INFERIOR INFARCT, OLD ANTERIOR INFARCT, AGE INDETERMINATE : Confirmed by: Cody Graff MD 22-Jun-2016 08:32:05
[2016-06-22] MEDS ORDERED: ENOXAPARIN SODIUM INJ 100 MG/1 ML DISP.SYRIN SUBCUT SCH (10:00)
[2016-06-22] MEDS ORDERED: NITROGLYCERIN 0.4 MG/TAB 25 TAB/BOTTLE SL PRN (12:18)
[2016-06-22] MEDS ORDERED: ALBUTEROL SULFATE HFA (90 MCG/PUFF) 200 PUFF/8.5 GM MDI IH PRN (12:27)
[2016-06-22] MEDS ORDERED: PREDNISOLONE ACETATE 1% OPH SUSP 5 ML OS SCH (12:30)
[2016-06-22] MEDS ORDERED: TOBRAMYCIN OS SCH (14:00)
--- NOTE | 2016-06-22 14:04 | PDOC H&P ---
History of Present Illness Admission Date/PCP: 06/22/16 10:10 SKYE WILLIS MD Patient complains of: L chest pain History of Present Illness: TAIWO DAVIDSON is a 71 year old female discharged yesterday with obstructive cardiomyopathy and resolved hyponatremia. After midnight she woke wtih new L chest pain, palpitations, post nasal drip, dyspnea, and nausea. Past Medical History Cardiac Medical History: Reports: Hyperlipidema, Hypertension, Heart Murmur Denies: Coronary Artery Disease, Myocardial Infarction Pulmonary Medical History: Reports: Asthma, Pneumonia - 2012 Denies: Bronchitis, Chronic Obstructive Pulmonary Disease (COPD) EENT Medical History: Reports: Nose - allergic rhinitis Neurological Medical History: Reports: None Denies: Seizures Endocrine Medical History: Reports: None Renal/ Medical History: Reports: None Malignancy Medical History: Reports: None GI Medical History: Reports: Gastroesophageal Reflux Disease Musculoskeltal Medical History: Reports: Arthritis - L.hand Psychiatric Medical History: Reports: Other - panic Traumatic Medical History: Reports: None Hematology: Reports: None Denies: Anemia Infectious Medical History: Reports: None Past Surgical History Past Surgical History: Reports: Hysterectomy, Orthopedic Surgery - fusion T12L2 , Other - 3apr L pterigium Denies: Pacemaker Social History Information Source: Dr. Rowe Lives with: Family Smoking Status: Never Smoker Frequency of Alcohol Use: None Hx Recreational Drug Use: No Drugs: None Hx Prescription Drug Abuse: No - Advance Directive Resuscitation Status: Full Code Family History Family History: CAD Parental Family History Reviewed: Yes Children Family History Reviewed: Yes Sibling(s) Family History Reviewed.: Yes Medication/Allergy Home Medications: Acetaminophen [Tylenol Extra Strength 500 mg Tablet] 500 mg PO Q6HP PRN Albuterol Sulfate [Proair HFA Inhalation Aerosol 8.5 gm MDI] 2 puff IH QIDP PRN 06/22/16 Cetirizine HCl [Zyrtec 10 mg Tablet] 10 mg PO DAILY 06/22/16 Erythromycin Base [Erythromycin] 1 inch OS QHS 06/22/16 Polymyxin B Sulf/Trimethoprim [Polytrim Eye Drops] 1 drop OD TID 06/22/16 Prednisolone Acetate [Pred Forte] 1 drop OS ASDIR 06/22/16 Ranitidine HCl [Zantac 150 mg Tablet] 150 mg PO BID 06/22/16 Tobramycin [Tobrex] 1 drop OS TID 06/22/16 Verapamil HCl [Calan 80 mg Tablet] 40 mg PO Q8 06/22/16 Allergies/Adverse Reactions: codeine [Codeine] Allergy (Unknown, Verified 06/18/16 19:08) morphine [Morphine] Allergy (Unknown, Verified 06/18/16 19:08) Penicillins Allergy (Unknown, Verified 06/18/16 19:08) Rash captopril Allergy (Verified 06/19/16 07:11) Angioneurotic Edema nitroglycerin Adverse Reaction (Verified 06/22/16 13:02) Review of Systems Constitutional: ABSENT: fever(s), headache(s), weight loss Nose, Mouth, and Throat: PRESENT: sore throat - mild Cardiovascular: PRESENT: chest pain, palpitations. ABSENT: dyspnea on exertion , orthropnea Respiratory: PRESENT: cough - mild, dyspnea. ABSENT: sputum Gastrointestinal: PRESENT: diarrhea, heartburn, nausea. ABSENT: abdominal pain , constipation, hematochezia, melena, vomiting Genitourinary: ABSENT: dysuria, hematuria Musculoskeletal: PRESENT: back pain Psychiatric: PRESENT: anxiety Physical Exam Vital Signs: Temp Pulse Resp BP Pulse Ox 98.0 F 72 22 H 180/64 H 94 06/22/16 10:50 06/22/16 13:42 06/22/16 13:42 06/22/16 13:42 06/22/16 13:42 Intake & Output 06/21/16 06/22/16 06/23/16 07:59 07:59 07:59 Weight 123 lb 3.814 oz General appearance: PRESENT: no acute distress Mouth exam: PRESENT: moist Neck exam: ABSENT: lymphadenopathy, meningismus, tenderness, thyromegaly, tracheal deviation Respiratory exam: PRESENT: clear to auscultation geeta Cardiovascular exam: PRESENT: systolic murmur. ABSENT: diastolic murmur, irregular rhythm Murmur grade: 3 GI/Abdominal exam: ABSENT: mass, organolmegaly, tenderness Extremities exam: ABSENT: pedal edema Results Laboratory Results: Abnormal - 24 hr 06/22/16 06/22/16 06/22/16 03:20 03:39 03:39 Hct 34.0 L Lymphocytes % 8.0 L Sodium 136.6 L Potassium 3.4 L Total Bilirubin 1.7 H Urine Ketones TRACE H Ur Leukocyte Esterase SMALL H EKG Comments: old anterior & inferior mi Impressions: Chest X-Ray 06/22/16 02:59 IMPRESSION: There is blunting of the left costophrenic angle which could represent pleural reaction or small left pleural effusion. No acute consolidations are identified. I cannot exclude a component of obstructive lung disease. Other findings as noted above Assessment & Plan - Diagnosis (1) Chest pain Qualifiers: Chest pain type: precordial pain Qualified Code(s): R07.2 - Precordial pain Is this a current diagnosis for this admission?: YesPlan: more enzymes ekgs. Reconsult Dr Pack. Lovenox, aspirin. Continue verapamil.
[2016-06-22 14:11] LABS: CREATINE KINASE MB 0.71 ng/mL (<4.55); TROPONIN I 0.021 ng/mL
[2016-06-22] MEDS: VERAPAMIL HCL 80 MG TABLET PO SCH ×2 (16:08→21:48)
[2016-06-22] MEDS: POLYMYXIN B SULFATE/TMP OPH SOLN 10 ML OD SCH ×2 (16:10→17:29)
[2016-06-22 20:48] LABS: CREATINE KINASE MB 0.42 ng/mL (<4.55); TROPONIN I 0.013 ng/mL
[2016-06-22] MEDS: FAMOTIDINE 20 MG TABLET PO SCH (21:49)
[2016-06-22] MEDS: ERYTHROMYCIN 0.5% OPH OINTMENT 3.5 GM TUBE OS SCH (21:50)
[2016-06-22] MEDS: ATORVASTATIN CALCIUM 10 MG TABLET PO SCH (21:50)
[2016-06-22] MEDS ORDERED: ENOXAPARIN SODIUM INJ 60 MG/0.6 ML DISP.SYRIN SUBCUT SCH (22:00)
--- NOTE | 2016-06-23 00:18 | CONSULTATION REPORT E ---
Consultation Report NAME: TAIWO DAVIDSON : 1945 AGE: 71Y DATE: 06/22/2016 403 A TO: JAYRO OTERO M.D. FROM: SKYE WILLIS M.D. Requesting Physician HISTORY OF PRESENT ILLNESS: The patient was recently admitted on 06/18/2016 and discharged on 06/21/2016, who came in with a history of abdominal pain and dry heaves and diarrhea, which she says has been happening for about a month. She also about a week prior to that admission had corneal surgery and was told by the anesthesiologist that she had a loud murmur. At that time echocardiogram showed left-sided induced mitral valve prolapse. There was hypertrophic obstructive cardiomyopathy and also Valsalva maneuver showed mitral valve prolapse and there was moderate mitral regurgitation. She was placed on verapamil 40 mg p.o. q.8 h. and sent home. The patient woke up on the morning of 06/22/2016 with fleeting, few seconds of chest pain radiating from the lower left side of the chest near the abdomen down towards the front of the chest. There were a few episodes and the patient felt that she had a panic attack also. She also had nausea, dizziness and shortness of breath and, hence, came to the emergency room and at present the patient appears to be very anxious but is stable. She denies any palpitations or syncope. She denies any PND, orthopnea or leg edema. There is no clear cut anginal symptoms. There are no fever, chills or rigors. PAST MEDICAL HISTORY: Positive for history of hypertension. She states in 2008 she had Holter monitor which showed SVT with no recurrence. She has occasional skipped beats and palpitations but no syncope. There is no history of coronary artery disease or myocardial infarction. There is no history of anginal symptoms. There is a history of mild asthma which is infrequent and there is no history of COPD or sleep apnea. There is no history of pulmonary embolism, no history of pleuritic chest pain, no history of hemoptysis. There is no history of diabetes mellitus or thyroid disease. She has a history of GERD and history of peptic ulcer disease but no GI bleed. She has no history of chronic kidney disease. She has a history of painful hemorrhoids. There is no history of TIA or CVA. The patient states there is no anxiety or depression, but the patient appears to be very anxious. Past medical history is negative for congestive heart failure. PAST SURGICAL HISTORY: Positive for appendectomy, tubal ligation, hysterectomy and she had an accident and had fusion of T12-L2 vertebra with 3 rods and 3 pins in the back. FAMILY HISTORY: She states that there is a history of hypertension and her father of heart failure but there is no coronary artery disease. Her mother had open mitral valve which was tried to be repaired but ultimately they were able to only put a mitral valve ring. There is no premature coronary artery disease or sudden or any significant disease in the siblings or in the family. ALLERGIES: CODEINE, MORPHINE, *------*, CAPTOPRIL AND ALSO AMLODIPINE. SHE IS ALSO INTOLERANT OF DIOVAN, HYDROCHLOROTHIAZIDE, ATENOLOL, FELODIPINE, AMLODIPINE AND CLONIDINE. REVIEW OF SYSTEMS: CONSTITUTIONAL: Denies any fever, chills or rigors. HEENT: Head: Denies any headaches or head injury. There is no dizziness. Eyes: Recently she had a left corneal surgery but there is no amblyopia or diplopia and no visual loss. There is no history of amaurosis fugax. Ears: No history of tinnitus, no history of vertigo and no history of recurrent ear infections. Nose: No history of nose bleeds, no history of hay fever, no history of nasal polyps, no history of symptoms of runny nose, no history of nasal allergies. Mouth: No history of altered taste sensation, no history of ulcers in the mouth, no bleeding from the gums. Throat: No history of odynophagia or dysphagia. No history of recurrent sore throat. SKIN: She has a past history of skin cancer which has been removed surgically with no recurrence. There is no pruritus. There is no psoriasis. There is no yellow discoloration of the skin. NECK: No history of C-spine arthritis, no goiter, no lymphadenopathy, no history of swelling neck, painless or painful. LUNGS: She denies any cough or wheezing recently. She in 2013 had pneumonia. She has a history of mild asthma but no history of COPD, no history of pulmonary embolism, no history of sleep apnea, no history of hemoptysis. CARDIAC: Recently diagnosed with mitral regurgitation, mitral valve prolapse, and hypertrophic obstructive cardiomyopathy with a significant resting gradient and the gradient decreases a lot to 260 mmHg across the LVOT, showing there is obstruction but the patient does not have any symptoms of shortness of breath. She states she walks 45 minutes every day. There is no history of congestive heart failure, no history of PND, orthopnea or leg edema. Recent symptoms of shortness of breath which in retrospect the patient thinks that she may have had a panic attack. MUSCULOSKELETAL: History of back pain due to surgery in the past. She has arthritis of the left hand. There is no cardiovascular disease. RENAL: No history of chronic kidney disease. No history of hematuria, polyuria or dysuria. No history of symptoms of UTI. ENDOCRINE: No history of diabetes mellitus, no history of heat or cold intolerance and no history of polydipsia or polyuria. No history of hypothyroidism or hyperthyroidism. There is no excessive sweating. There is no Hirsutism. The patient has a history of GERD present, past history of peptic ulcer in the past, no history of upper GI bleed. The patient also states she has painful hemorrhoids and she has rectal bleed. There is no history of jaundice, no history of fatty food intolerance, no history of hepatitis. History of abdominal pain since 1 month. This admission she does not seem to think she has abdominal pain but she states that she had 1 episode of diarrhea and some nausea, the majority of which is not known. At her last admission, her diarrhea was C. difficile toxin was negative. NEUROLOGIC: No history of TIA or CVA. No history of sleep apnea, no history of headaches, migraines or seizures. No history of gait imbalance. PSYCHIATRIC: The patient denied a history of anxiety or depression, but the patient appears to be anxious, and she also thinks that she may have a panic attack. She has no homicidal or suicidal ideation. Lastly, no history of DVT or buttock or calf claudication. HEMATOLOGICAL: No history of bleeding diathesis. No history of clotting disorders. METABOLIC: When last seen, the patient was hyponatremia and this has been corrected and this admission her sodium is slightly low at 136.6 with a cutoff being 137; hence, it has mostly been corrected. She has a history of hyperlipidemia, no history of obesity and no history of gout. MEDICATIONS: 1. Tobramycin 1 drop OS t.i.d. 2. Albuterol sulfate 2 puffs inhalation q.6 h. p.r.n. 3. Aspirin 81 mg p.o. daily. 4. Atorvastatin 10 mg p.o. at bedtime. 5. Zyrtec 10 mg p.o. daily. 6. Lovenox 50 mg subcutaneously q.12 h. 7. Erythromycin base 1 application OS at bedtime. 8. Famotidine 20 mg p.o. q.12 h. 9. She has normal saline IV bolus x1 which has been discontinued. 10. She also received magnesium sulfate. 11. She is on nitroglycerin 1 tablet sublingual p.r.n. 12. Polymyxin B sulfate 1 drop OD t.i.d. 13. Prednisone acetate 1 drop OS as directed. 14. Calan 40 mg p.o. q.8 h. PHYSICAL EXAMINATION: GENERAL: The patient is frail built but seems to be well-nourished, seems to be slightly depressed and anxious. VITAL SIGNS: She is afebrile with a temperature of 98 degrees Fahrenheit orally at around 10:50 a.m., pulse is 69 beats per minute, blood pressure 162/67, respirations 17 per minute, O2 sats are 93% on room air. HEENT: Head is atraumatic and normocephalic. Eyes: Pupils are equal, round, regular, reactive to light and accommodation. Extraocular movements are normal. There is no conjunctival pallor. There is no scleral icterus. Ears: Tympanic membranes are intact. External auditory canals are clear. There are no lesions of the pinnae. Nose: There are no lesions in the nose. There is no deviated nasal septum. There are no nasal polyps. There is no inflammation of the nasal mucous membranes. Mouth: Mucous membranes of the mouth are moist. Tongue is moist. There are no ulcers in the mouth. There is no bleeding from the gums. Throat: There is no redness of the oropharynx. There are no exudates. SKIN: There are no skin rashes. There is no petechia or ecchymosis. There are no skin lesions. NECK: Supple. There is no JVD. Carotids are equal. There is no bruit, but there is a transmitted murmur from the aortic area to the carotids. There is no carotid delay. There is no lymphadenopathy. There is no goiter. Trachea is central. LUNGS: Clear to auscultation and percussion. There is no chest wall tenderness. HEART: S1 and S2 are heard. S1 is of normal intensity. There is no S3 gallop. There is no S4 gallop. There is a systolic murmur in the aortic area which radiates to the carotids. There is no carotid delay and there is no preferred side of the murmur. It is well preserved. There is increase in this murmur with Valsalva maneuver. There is a systolic murmur in the apex with radiation to the left axilla. The murmur does not radiate to the back or vertex of the head. ABDOMEN: Soft, nontender. There is no hepatosplenomegaly. Bowel sounds are well heard. There are no rebound, guarding or rigidity. EXTREMITIES: Femorals are well felt. There are no femoral bruits. Leg pulses are well felt. There is no pedal edema. There is no DVT or cellulitis. There is no calf tenderness. There is no cyanosis or clubbing. CENTRAL NERVOUS SYSTEM: The patient is conscious, awake, alert, oriented x3 with no focal deficits. PSYCHIATRIC: The patient appears to be slightly anxious and slightly depressed, but her judgment and insight are intact. Her affect is normal. DIAGNOSTIC TEST RESULTS: The patient's sodium is 136.6, potassium is 3.4, chloride is 98, her 27. BUN is 11, creatinine is 0.74. GFR is greater than 60. Total bilirubin is high at 1.7 and the rest of the liver function tests are normal. Her calcium is 9.1, glucose is 97. The patient's CPK-MB negative x3. Her CPK is negative x4. Her albumin is 4.1, total protein 6.9. The patient's white count is 9300, hemoglobin is 12.2, hematocrit is 34, and the platelet count is 161,000. The patient's EKG showed sinus rhythm, probable left atrial abnormality, elevation secondary to repolarization abnormality. Poor R-wave progression in V1-V4 was likely due to lead placement. Doubt inferior wall PA. Note in the recent admission her echocardiogram was not of good quality study but it showed that there was a peak gradient across the LVOT of 85 mg. There was asymmetric septal hypertrophy with systolic anterior motion of the mitral valve leaflet. With Valsalva, this increased to 263 mmHg. There is moderate mitral regurgitation and mild mitral valve prolapse. The left ventricular contractility was normal with no wall motion abnormality. The echo was repeated and that showed the LVOT gradient went up to 263 mmHg with Valsalva. Note that the patient tells me that her brother has also hypertrophy of the heart but she is not sure as to what the diagnosis is. He is coming tomorrow so I will meet him. IMPRESSION: 1. 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 The plan was to send the patient to a specialist either at [facility] or [facility] who specializes in IHSS for treatment options such as alcohol septal six horse hitch driver versus placing permanent pacemaker versus replacing the mitral valve or even septectomy. 2. Systolic murmur of mild aortic sclerosis present. 3. Systolic murmur of moderate mitral regurgitation by echo. 4. Mitral valve prolapse. 5. Abdominal pain for 1 month with intermittent diarrhea and nausea, question etiology. 6. Hypertension. Blood pressure is still not well controlled. 7. Past history of SVT with no clinical recurrence. 8. History of hemorrhoids. 9. GERD. 10. History of peptic ulcer disease in the past. 11. History of hyponatremia last admission. Now the sodium is slightly below normal. RECOMMENDATIONS: Would strongly avoid nitroglycerin in this patient. Since the patient has already been on Calan 40 mg p.o. q.8 h., from tomorrow will increase the patient's Calan to sustained release 120 mg p.o. q.12 h. Would recommend stopping the patient's full dose Lovenox, since this is not an acute coronary syndrome and since her last diagnosis of chest pain noncardiac. I again discussed the echo findings with the patient and also the need for antibiotics for bacterial endocarditis prophylaxis prior to dental and GI/ surgery. Discussed with the attending physician. Note, the patient is a FULL CODE and her is the surrogate healthcare decision maker. Note, I was with the patient from 2 p.m. to 2:45 p.m., 45 minutes in which 50% of the time spent on direct patient care and also discussion of the echo findings and treatment options and the recommendations that she be seen by appraiser personal property who specializes in hypertrophic cardiomyopathy. The patient understands. As mentioned earlier, will increase the patient's verapamil to sustained release 120 mg p.o. q.12 h. Also would stop the patient's nitroglycerin and the patient has been asked to avoid dehydration and nitrates, since anything that makes the heart smaller will increase the patient's gradient. Also, the patient will need a 30-day event monitor to make sure she is not having asymptomatic or symptomatic palpitations in which case she is at risk for sudden and may require an AICD. Also the patient has been counseled not have any contact sports or severe exertion and to take it very easy. I have also discussed the need for a TE since the echocardiogram was not a very good study. Will discuss with the patient's brother as to exact diagnosis of his hypertrophy of the heart, whether it is HOCM or not. Thanking you. DICTATING PHYSICIAN: JAYRO OTERO M.D. [id number] [id number]#: [id number] [id number] JOB#: [id number] ACCT: [id number] cc:JAYRO OTERO M.D. >
[2016-06-23 02:01] LABS: CREATINE KINASE MB 0.41 ng/mL (<4.55); TROPONIN I 0.019 ng/mL
[2016-06-23 05:50] LABS: HEMATOCRIT 34.7 % (36.0-47.0); HEMOGLOBIN 12.1 g/dL (12.0-15.5); HGB HCT DIFFERENCE 1.6; MEAN CORPUSCULAR HEMOGLOBIN 31.2 pg (27.0-33.4); MEAN CORPUSCULAR HGB CONC 34.9 g/dL (32.0-36.0); MEAN CORPUSCULAR VOLUME 89 fl (80-97); RED BLOOD COUNT 3.89 10^6/uL (3.72-5.28); RED CELL DISTRIBUTION WIDTH 13.4 % (11.5-14.0)
--- NOTE | 2016-06-23 08:21 | PDOC PROGRESS REPORT ---
Subjective Progress Note for:: 06/23/16 Subjective:: no more lchest pain. Transient epigastric pain radiating into mid chest. Chronic productive cough. Worries everthing from heart. Physical Exam Vital Signs: Temp Pulse Resp BP Pulse Ox 98.4 F 74 16 172/69 H 90 L 06/23/16 03:38 06/23/16 07:13 06/23/16 07:13 06/23/16 07:13 06/23/16 07:13 Intake & Output 06/22/16 06/23/16 06/24/16 07:59 07:59 07:59 Intake Total 985 Balance 985 Weight 123 lb 3.814 oz General appearance: PRESENT: no acute distress Respiratory exam: PRESENT: clear to auscultation geeta Cardiovascular exam: PRESENT: systolic murmur. ABSENT: diastolic murmur, irregular rhythm Murmur grade: 3 GI/Abdominal exam: ABSENT: tenderness Extremities exam: ABSENT: pedal edema Neurological exam: PRESENT: oriented to situation Psychiatric exam: PRESENT: anxious Results Laboratory Results: 06/23/16 05:00 06/23/16 05:00 WBC 11.0 H RBC 3.89 Hgb 12.1 Hct 34.7 L MCV 89 MCH 31.2 MCHC 34.9 RDW 13.4 Plt Count 166 06/22/16 06/22/16 06/23/16 13:30 19:30 01:22 CK-MB (CK-2) 0.71 0.42 0.41 Troponin I 0.021 0.013 0.019 Impressions: Chest X-Ray 06/22/16 02:59 IMPRESSION: There is blunting of the left costophrenic angle which could represent pleural reaction or small left pleural effusion. No acute consolidations are identified. I cannot exclude a component of obstructive lung disease. Other findings as noted above Abdomen Ultrasound 06/23/16 00:00 IMPRESSION: NORMAL RIGHT UPPER QUADRANT ULTRASOUND. Assessment & Plan - Diagnosis (1) Chest pain Qualifiers: Chest pain type: precordial pain Qualified Code(s): R07.2 - Precordial pain Is this a current diagnosis for this admission?: YesPlan: mi rulled out. Ekg slow R progression (no hypokinesis on echo). USgb normal inspite of bili1.7. (2) Obstructive hypertrophic cardiomyopathy Is this a current diagnosis for this admission?: YesPlan: bp 144-183 on verapamil 40tid. Now on 120bid. May need low dose toprol if rate allows (avril on atenolol). Education. Brother with [facility] coming.
[2016-06-23] MEDS: ASPIRIN 81 MG TABLET, CHEWABLE PO SCH (09:20)
[2016-06-23] MEDS: CETIRIZINE 10 MG TABLET PO SCH (09:20)
[2016-06-23] MEDS: VERAPAMIL HCL 120 MG TABLET.SA PO SCH ×2 (09:20→21:35)
[2016-06-23] MEDS: FAMOTIDINE 20 MG TABLET PO SCH ×2 (09:21→21:35)
[2016-06-23] MEDS: POLYMYXIN B SULFATE/TMP OPH SOLN 10 ML OD SCH ×3 (09:23→17:01)
[2016-06-23 09:48] LABS: APPEARANCE,URINE SLIGHTLY-CLOUDY; BILIRUBIN,URINE NEGATIVE (NEGATIVE); GLUCOSE, URINE NEGATIVE (NEGATIVE); KETONES,URINE 20 mg/dL (NEGATIVE); LEUKOCYTE ESTERASE,URINE SMALL (NEGATIVE); NITRITE,URINE NEGATIVE (NEGATIVE); PROTEIN,URINE 30 mg/dL (NEGATIVE); URINE SPECIFIC GRAVITY 1.017; UROBILINOGEN,URINE NEGATIVE mg/dL (<2.0)
[2016-06-23] MEDS ORDERED: ENOXAPARIN SODIUM INJ 40 MG/0.4 ML DISP.SYRIN SUBCUT ONE (14:00)
[2016-06-23] MEDS: ERYTHROMYCIN 0.5% OPH OINTMENT 3.5 GM TUBE OS SCH (21:40)
[2016-06-23] MEDS: ATORVASTATIN CALCIUM 10 MG TABLET PO SCH (21:40)
--- NOTE | 2016-06-24 01:43 | PROGRESS NOTE E ---
Progress Note NAME: TAIWO DAVIDSON : 1945 AGE: 71Y DATE: 06/23/2016 ROOM: 403 SUBJECTIVE: Note, I was with the patient from 12:30 p.m. to 1:00 p.m. Note that the patient's brother was also there. Note 30 minutes spent on this patient. The patient denies any chest pain or discomfort. There is no shortness of breath. There is no abdominal pain or diarrhea. There are no palpitations. There is no arrhythmia seen on the monitor. As per her brother, he does not know the details, but he said he had an echocardiogram which was read and where he was told that there was thickening of the heart muscle, which is blocking the valve, but he is not sure of it, but what he says sounds like IHSS. She also has 2 other brothers, whom I have asked Ms. Davidson's brother, Mr. Oziel Jones, to have his brothers' doctors call me to make sure that they get an echocardiogram and make sure that they do not have IHSS. Also, I tried to talk to Dr. Srinivasan from [place], who is the patient's primary care medical doctor. OBJECTIVE: VITAL SIGNS: On examination earlier, the patient's temperature was 98.8 degrees Fahrenheit, pulse was 74 beats per minute, blood pressure was slightly elevated at 162/70, respirations were 19 per minute, O2 sat was 94%. HEAD: Atraumatic, normocephalic. EYES: Pupils are equal, round, reactive to light accommodation. Extraocular movements are normal. There is no conjunctival pallor. There is no scleral icterus. ENT: Negative. NECK: Supple. There is no JVD. Carotids equal. There is no bruit. There is a transmitted murmur from the aortic area to the carotids. There is no carotid disease. There is no lymphadenopathy. There is no goiter. Trachea is central. LUNGS: Clear to auscultation and percussion. There is no chest-wall tenderness. HEART: S1 are S2 are heard. S1 is with normal intensity. There is no S3 gallop. There is no S4 gallop. A systolic murmur over the aortic area which radiates to the carotids. There is no carotid delay and there is no carotid bruit. A2 is well preserved. There is increase in the murmur in the aortic area with Valsalva maneuver. Systolic murmur in the apex with radiation to the left axilla of MR. The murmur does not radiate to the back or the vertex of back. There is no rub. ABDOMEN: Soft, nontender. There is no hepatosplenomegaly. Bowel sounds are well heard. There is no rebound, guarding, or rigidity. EXTREMITIES: Femorals are well felt. There are no femoral bruits. Leg pulses are well felt. There is no pedal edema. There is no DVT or cellulitis. There is no calf tenderness. There is no cyanosis or clubbing. CHAMBER MAGISTRATE: The patient is conscious, awake, alert, oriented x3 with no focal deficits. PSYCHIATRIC: The patient's judgement and insight appear to be intact. The patient appears to be slightly anxious. LABORATORY: The patient's white blood cell count is 11,000, hemoglobin is 12.1, hematocrit is 34.7, and platelets are 166,000. The patient's cardiac enzymes have been negative x1 early this morning. The patient's stool occult blood was negative. ASSESSMENT: 1. 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 With a significant resting *------*. The plan is to increase the patient's verapamil, since she is tolerating it and her blood pressure is also high. 2. Systolic murmur of mild aortic sclerosis present. 3. Murmur of moderate mitral regurgitation. 4. Mitral valve prolapse, especially when the patient has a Valsalva maneuver. 5. Abdominal pain, etiology not determined. 6. Hypertension. Blood pressure is still not well controlled. 7. Paroxysmal supraventricular tachycardia with no recurrence. 8. History of hemorrhoids. 9. Gastroesophageal reflux disease. 10. History of peptic ulcer disease in the past. 11. History of hyponatremia, last admission. Her sodium is slightly below normal. RECOMMENDATIONS: As mentioned earlier, will talk to the patient's brothers' doctors in [place] on Sunday, since today his office was closed. Also asked the patient to call his brothers and have his doctors call me on my cell phone so that I make sure that those brothers get echocardiograms. We will slightly increase the patient's anti-anxiolytic medication. We will increase the patient to verapamil 180 mg p.o. q. 12 hours. As an outpatient, get a 30-day event monitor to make sure the patient has no silent ventricular arrhythmias, and also would recommend that the patient be referred to Dr. Hurtado, who is a wood handler in [facility] who specializes in valvar disease. Will make that appointment. All of this discussed with the patient. Note, 30 minutes spent on this patient, more than 50% of time spent in direct patient care, and also reviewing the patient's medications, adjusting the patient's medication, and discussion with our attending physician taking care of the patient. Will follow with you. Note that the patient is a FULL CODE. Her is her surrogate healthcare decision maker. DICTATING PHYSICIAN: JAYRO OTERO M.D. [id number] OLGA#: [id number] ID: [id number] JOB#: [id number] ACCT: [id number] cc: >
--- NOTE | 2016-06-24 08:03 | PDOC DISCHARGE SUMMARY ---
General - Admit/Disc Date/PCP Admission Date/Primary Care Provider: 06/22/16 12:18 SKYE WILLIS MD Discharge Date: 06/24/16 - Discharge Diagnosis (1) Chest pain Is this a current diagnosis for this admission?: YesSummary: mi rulled out (2) Obstructive hypertrophic cardiomyopathy Is this a current diagnosis for this admission?: YesSummary: Dr Pack increased verapamil to 180bid and spoke with brother with similar echo. Dr Pack suggested echo for rest of brothers. (3) Nonrheumatic mitral valve insufficiency Is this a current diagnosis for this admission?: YesSummary: moderate mr. (4) Irritable bowel syndrome with diarrhea Is this a current diagnosis for this admission?: YesSummary: intermittant cramps & diarrhea. Negative US & lipase. Several scopes in past. Verapamil may help. - Additional Information Resuscitation Status: Full Code Discharge Diet: Cardiac Discharge Activity: Balance Activity w/Rest Home Medications: Acetaminophen [Tylenol Extra Strength 500 mg Tablet] 500 mg PO Q6HP PRN Albuterol Sulfate [Proair HFA Inhalation Aerosol 8.5 gm MDI] 2 puff IH QIDP PRN 06/22/16 Cetirizine HCl [Zyrtec 10 mg Tablet] 10 mg PO DAILY 06/22/16 Erythromycin Base [Erythromycin] 1 inch OS QHS 06/22/16 Polymyxin B Sulf/Trimethoprim [Polytrim Eye Drops] 1 drop OD TID 06/22/16 Prednisolone Acetate [Pred Forte] 1 drop OS ASDIR 06/22/16 Ranitidine HCl [Zantac 150 mg Tablet] 150 mg PO BID 06/22/16 Tobramycin [Tobrex] 1 drop OS TID 06/22/16 Verapamil HCl [Calan Sr 180 mg Tablet.sa] 180 mg PO Q12 #60 tablet.sa 06/24/16 History of Present Illness History of Present Illness: TAIWO DAVIDSON is a 71 year old female discharged yesterday with obstructive cardiomyopathy and resolved hyponatremia. After midnight she woke wtih new L chest pain, palpitations, post nasal drip, dyspnea, and nausea. Hospital Course Hospital Course: see above Physical Exam Vital Signs: Temp Pulse Resp BP Pulse Ox 97.8 F 68 14 142/62 H 96 06/24/16 03:45 06/24/16 03:45 06/24/16 03:45 06/24/16 03:45 06/24/16 03:45 Intake & Output 06/22/16 06/23/16 06/24/16 07:59 07:59 07:59 Intake Total 985 1240 Balance 985 1240 Weight 123 lb 3.814 oz 119 lb 4.321 oz General appearance: PRESENT: no acute distress Respiratory exam: PRESENT: clear to auscultation geeta Cardiovascular exam: PRESENT: RRR, systolic murmur Murmur grade: 3 Extremities exam: ABSENT: pedal edema Results Laboratory Results: 06/23/16 05:00 06/23/16 06/23/16 09:16 09:20 Urine Color YELLOW Urine Appearance SLIGHTLY-CLOUDY Urine pH 6.0 Ur Specific [place] 1.017 Urine Protein 30 H Urine Glucose (UA) NEGATIVE Urine Ketones 20 H Urine Blood NEGATIVE Urine Nitrite NEGATIVE Ur Leukocyte Esterase SMALL H Urine WBC (Auto) 5 Urine RBC (Auto) 0 Stool Occult Blood NEGATIVE 06/22/16 06/22/16 06/23/16 13:30 19:30 01:22 CK-MB (CK-2) 0.71 0.42 0.41 Troponin I 0.021 0.013 0.019 Impressions: Chest X-Ray 06/22/16 02:59 IMPRESSION: There is blunting of the left costophrenic angle which could represent pleural reaction or small left pleural effusion. No acute consolidations are identified. I cannot exclude a component of obstructive lung disease. Other findings as noted above Abdomen Ultrasound 06/23/16 00:00 IMPRESSION: NORMAL RIGHT UPPER QUADRANT ULTRASOUND. Plan Discharge Plan: 4d ov. 5d Dr Pack for 30d monitor[address] Then Dr Freire in [place] for HOCM.
[2016-06-24 08:11] VITALS: BP 148/57
[2016-06-24] MEDS: CETIRIZINE 10 MG TABLET PO SCH (09:21)
[2016-06-24] MEDS: FAMOTIDINE 20 MG TABLET PO SCH (09:21)
[2016-06-24] MEDS: ASPIRIN 81 MG TABLET, CHEWABLE PO SCH (09:22)
[2016-06-24] MEDS: POLYMYXIN B SULFATE/TMP OPH SOLN 10 ML OD SCH (09:24)
[2016-06-24] MEDS ORDERED: ENOXAPARIN SODIUM INJ 40 MG/0.4 ML DISP.SYRIN SUBCUT SCH (10:00)
[2016-06-24] MEDS ORDERED: VERAPAMIL HCL 180 MG TABLET.SA PO SCH (10:00)
== END 2016-06-24 09:45 | disposition home or self-care (01) ==
LOC: ER 02:38 → EH 10:10 → UNDOADMOB 10:10 → EH 12:18 → 4N 15:00
PROVIDERS: ADMIT Family Medicine; ATTEND Family Medicine
DX: R07.2 Precordial pain (principal); I42.1 Obstructive hypertrophic cardiomyopathy; I34.0 Nonrheumatic mitral (valve) insufficiency; K58.0 Irritable bowel syndrome with diarrhea; R00.2 Palpitations; R09.82 Postnasal drip; E87.1 Hypo-osmolality and hyponatremia; R06.00 Dyspnea, unspecified; R11.0 Nausea; I34.1 Nonrheumatic mitral (valve) prolapse; J45.909 Unspecified asthma, uncomplicated; E78.5 Hyperlipidemia, unspecified; K21.9 Gastro-esophageal reflux disease without esophagitis; I10 Essential (primary) hypertension; F41.9 Anxiety disorder, unspecified; M54.9 Dorsalgia, unspecified; R05 Cough; R10.13 Epigastric pain; I47.1 Supraventricular tachycardia; Z87.11 Personal history of peptic ulcer disease; Z90.49 Acquired absence of other specified parts of digestive tract; Z98.51 Tubal ligation status; Z90.710 Acquired absence of both cervix and uterus; Z82.49 Family history of ischemic heart disease and other diseases of the circulatory system
CPT/HCPCS: 93005; 99285; 96372; 96361; 96365; 36415 ×2; 82553 ×2; 82550; 85025; 85027; 82272; 80053; 81001 ×2; 84484 ×2; 71010; 76705; 93010; G0378 ×4; A9270 ×11; J1650 ×3; J3475; J3490 ×2; J7030

== ENCOUNTER → 2016-09-11 | Outpatient (CLI) | payer MEDICARE, OTHER ==
[~2016-09-11] MED LIST: DILTIAZEM HCL INJ 25 MG/5 ML VIAL IV ONE
--- NOTE | 2016-09-11 18:17 | DRAGON STRESS TEST REPORT ---
Exercise EKG treadmill stress test. Data procedure: 09/11/2016. Ordering Provider: Dr. Chio Ibrahim. Patient Status: Out Patient. Indication: Patient with HOCM. To assess for dyspnea on exertion. Significant physical findings prior to stress testing show a blood pressure of 191/63 and a heart rate of 82 beat per minute. Auscultation of the heart shows normal S1 and S2.NoS3 or S4 gallops. Systolic murmur in the left sternal border, which increases with Valsalva maneuver and an systolic murmur of mitral regurgitation at the apex. Lungs are clear to auscultation and percussion. Resting 12-lead EKG:. Sinus Rhythm. LVH with strain pattern. Procedure: The patient was excised on a standard Khoa protocol. . The patient walked a total of 4 minutes and 25 seconds on this protocol and reached a peak heart rate of 131 beats per minute, which is 87% of maximum predicted heart rate for age. This is at a workload of 7 METS. The test was stopped because of complaints of shortness of breath, and inability to of the patient exercised for. The patient described no symptoms of chest pain/ discomfort. At 2 minutes and 30 seconds with a heart rate of 1 20 bpm the patient complained of mild shortness of breath being "winded". Subsequently at peak exercise she was having moderate shortness of breath although she did not seem to be in any acute major respiratory distress. She also stated that she could not exercise any further and the test was stopped. Blood pressure response was normal and at peak exercise the blood pressure was 159/68 millimeters of Hg. The double product was 20.8 k. Summary of findings and interpretation: 1. No chest pain or chest discomfort symptoms reproduced. Patient's symptoms of dyspnea on exertion were reproduced. 2. There was a [address] depression in leads V6 only. There is inconclusive EKG evidence of ischemia in the form of ST segment depression, in view of the baseline EKG changes 3. Normal blood pressure response. 4. No arrhythmias seen. 5. Fair exercise tolerance, fair aerobic capacity. Diagnostic treadmill stress test nondiagnostic for ischemia by EKG criteria, but did reproduce her dyspnea on exertion, although the patient was hemodynamically stable, with no evidence of congestive heart failure. Recommendations: 1. Correlate clinically 2. .Aggressive risk factor modification, and treatment of underlying co- morbidities. MTDD
== END ==
LOC: SP 08:51
PROVIDERS: ATTEND Specialist
DX: I42.1 Obstructive hypertrophic cardiomyopathy (principal)
CPT/HCPCS: 93017; J3490

== ENCOUNTER → 2017-02-13 | Outpatient (CLI) | payer MEDICARE, OTHER ==
[2017-02-13 08:18] LABS: ABSOLUTE BASOPHILS # (AUTO) 0.1 10^3/uL (0.0-0.2); ABSOLUTE EOSINOPHILS # (AUTO) 0.3 10^3/uL (0.0-0.6); ABSOLUTE LYMPHOCYTES (AUTO) 1.7 10^3/uL (0.5-4.7); ABSOLUTE MONOCYTES (AUTO) 0.7 10^3/uL (0.1-1.4); ABSOLUTE NEUT (AUTO) 4.1 10^3/uL (1.7-8.2); BASOPHILS % (AUTO) 0.7 % (0-2); EOSINOPHILS % (AUTO) 4.4 % (0-6); HEMOGLOBIN 14.4 g/dL (12.0-15.5); HGB HCT DIFFERENCE 1.2; LYMPHOCYTES % (AUTO) 24.3 % (13-45); MEAN CORPUSCULAR HEMOGLOBIN 31.4 pg (27.0-33.4); MEAN CORPUSCULAR HGB CONC 34.4 g/dL (32.0-36.0); MEAN CORPUSCULAR VOLUME 91 fl (80-97); MONOCYTES % (AUTO) 10.8 % (3-13); RED CELL DISTRIBUTION WIDTH 13.1 % (11.5-14.0); SEGMENTED NEUTROPHILS % (AUTO) 59.8 % (42-78); WHITE BLOOD COUNT 6.8 10^3/uL (4.0-10.5)
[2017-02-13 08:40] LABS: ALANINE AMINOTRANSFERASE 27 U/L (9-52); ALBUMIN 4.6 g/dL (3.5-5.0); ALKALINE PHOSPHATASE 90 U/L (38-126); ANION GAP 13 (5-19); ASPARTATE AMINO TRANSFERASE 22 U/L (14-36); BILIRUBIN,DIRECT 0.3 mg/dL (0.0-0.4); BILIRUBIN,TOTAL 1.2 mg/dL (0.2-1.3); BLOOD UREA NITROGEN 17 mg/dL (7-20); CALCIUM 9.8 mg/dL (8.4-10.2); CARBON DIOXIDE 30 mmol/L (22-30); CHLORIDE 102 mmol/L (98-107); CHOLESTEROL 202.33 mg/dL (0-200); CREATININE RESULT 0.93 mg/dL (0.52-1.25); Direct HDL 52 mg/dL (>40); GLUCOSE 86 mg/dL (75-110); POTASSIUM 5.1 mmol/L (3.6-5.0); SODIUM 144.5 mmol/L (137-145); TOTAL PROTEIN 7.7 g/dL (6.3-8.2); TRIGLYCERIDES 104 mg/dL (<150)
[2017-02-13 08:51] LABS: DIRECT LDL 123 mg/dL (<100)
== END ==
LOC: OD 07:08
PROVIDERS: ATTEND Family Medicine Geriatric Medicine
DX: I10 Essential (primary) hypertension (principal); K21.9 Gastro-esophageal reflux disease without esophagitis; J44.9 Chronic obstructive pulmonary disease, unspecified; E55.9 Vitamin D deficiency, unspecified; Z79.899 Other long term (current) drug therapy
CPT/HCPCS: 36415; 80053; 80061; 82306; 84443; 85025

== ENCOUNTER → 2017-02-16 | Outpatient (CLI) | payer MEDICARE, OTHER | LOC: OD 15:59 | PROVIDERS: ATTEND Family Medicine Geriatric Medicine | DX: E87.6 Hypokalemia (principal); Z79.899 Other long term (current) drug therapy | CPT/HCPCS: 36415; 84132 ==

== ENCOUNTER → 2017-06-06 | Outpatient (CLI) | payer MEDICARE, OTHER ==
[2017-06-06 09:08] LABS: ALANINE AMINOTRANSFERASE 25 U/L (9-52); ASPARTATE AMINO TRANSFERASE 19 U/L (14-36); CHOLESTEROL 191.92 mg/dL (0-200); POTASSIUM 4.4 mmol/L (3.6-5.0); TRIGLYCERIDES 99 mg/dL (<150)
[2017-06-06 09:19] LABS: DIRECT LDL 103 mg/dL (<100)
== END ==
LOC: OD 07:08
PROVIDERS: ATTEND Family Medicine Geriatric Medicine
DX: E87.5 Hyperkalemia (principal); E78.5 Hyperlipidemia, unspecified; Z79.899 Other long term (current) drug therapy
CPT/HCPCS: 36415; 80061; 84132; 84450; 84460

== ENCOUNTER 2017-09-06 06:58 | Emergency (ER) | payer MEDICARE, OTHER ==
[2017-09-06 07:22] VITALS: BP 169/66
--- NOTE | 2017-09-06 07:51 | EKG REPORT ---
SEVERITY:- ABNORMAL ECG - SINUS RHYTHM ATRIAL PREMATURE COMPLEX PROBABLE LEFT ATRIAL ABNORMALITY LEFT VENTRICULAR HYPERTROPHY ANTERIOR INFARCT, AGE INDETERMINATE BORDERLINE PROLONGED QT INTERVAL : Confirmed by: Chio Ibrahim MD 06-Sep-2017 07:50:35
[2017-09-06] MEDS ORDERED: MAG HYDROX/AL HYDROX/SIMETH SUSP 30 ML UDCUP PO ONE (08:12)
[2017-09-06] MEDS ORDERED: LIDOCAINE 2% VISCOUS SOLN 20 ML UDCUP PO ONE (08:12)
[2017-09-06] MEDS ORDERED: METOCLOPRAMIDE HCL ORAL SOLN 10 MG/10 ML UDCUP PO ONE (08:12)
--- NOTE | 2017-09-06 08:12 | ER Document Report ---
ED General - General Information source: Patient TRAVEL OUTSIDE OF THE [place] IN LAST 30 DAYS: No <CHAR VARGAS - Last Filed: 09/06/17 08:25> <CONOR AMAYA - Last Filed: 09/09/17 15:18> - General Chief Complaint: Chest Pain Stated Complaint: NAUSEA/CHEST PRESSURE Time Seen by Provider: 09/06/17 07:50 Notes: Patient is a 72-year-old female with hypertrophic cardiomyopathy who was sent in by her historian research assistant for upper abdominal pain. Patient indicates that the pain is located in her epigastrium, she describes pain as "a knot". Patient states she has had nausea off and on for 2 weeks which has gotten much worse over the last 2 days. Patient states she has a history of GERD and that it is usually relieved with Mylanta so she tried that prior to arrival which did not relieve her symptoms today. Patient has not had any vomiting. (CHAR VARGAS) - Related Data Allergies/Adverse Reactions: codeine [Codeine] Allergy (Unknown, Verified 06/18/16 19:08) morphine [Morphine] Allergy (Unknown, Verified 06/18/16 19:08) Penicillins Allergy (Unknown, Verified 06/18/16 19:08) Rash captopril Allergy (Verified 06/19/16 07:11) Angioneurotic Edema nitroglycerin Adverse Reaction (Verified 06/22/16 13:02) Past Medical History - General Information source: Patient - Social History Smoking Status: Unknown if Ever Smoked Cigarette use (# per day): No Frequency of alcohol use: None Family History: CAD, Other - Hypertrophic cardiomyopathy Patient has suicidal ideation: No Patient has homicidal ideation: No - Past Medical History Cardiac Medical History: Reports: Hx Hypercholesterolemia, Hx Hypertension, Hx Heart Murmur Pulmonary Medical History: Reports: Hx Asthma, Hx Pneumonia - 2012 GI Medical History: Reports: Hx Gastroesophageal Reflux Disease Musculoskeltal Medical History: 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 denies: Vomiting Genitourinary: No symptoms reported Female Genitourinary: No symptoms reported Musculoskeletal: No symptoms reported Skin: No symptoms reported Hematologic/Lymphatic: No symptoms reported Neurological/Psychological: No symptoms reported -: Yes All other systems reviewed and negative <CHAR VARGAS - Last Filed: 09/06/17 08:25> Physical Exam <CHAR VARGAS - Last Filed: 09/06/17 08:25> <CONOR AMAYA - Last Filed: 09/09/17 15:18> - Vital signs Vitals: Temp Pulse Resp BP Pulse Ox 97.4 F 78 16 169/66 H 97 09/06/17 07:18 09/06/17 07:18 09/06/17 07:18 09/06/17 07:18 09/06/17 07:18 - Notes Notes: Physical Exam: General: Alert, appears well. HEENT: Normocephalic. Atraumatic. PERRL. Extraocular movements intact. Oropharynx clear. Neck: Supple. Non-tender. Respiratory: No respiratory distress. Clear and equal breath sounds bilaterally. Cardiovascular: Holosystolic murmur, regular rate and rhythm. Abdominal: Epigastric abdominal tenderness with palpation. No distension. Normal Bowel Sounds. Back: Non-tender. No deformity or step off. Extremities: Moves all four extremities. Upper extremities: Normal inspection. Normal ROM. Lower extremities: Normal inspection. No edema. Normal ROM. Neurological: Normal cognition. AAOx4. Normal speech. Psychological: Normal affect. Normal Mood. Skin: Warm. Dry. Normal color. (CHAR VARGAS) Course - Laboratory Result Diagrams: 09/06/17 07:52 09/06/17 07:52 <CHAR AVRGAS - Last Filed: 09/06/17 08:25> - Laboratory Result Diagrams: 09/06/17 07:52 09/06/17 07:52 - Diagnostic Test Radiology reviewed: Image reviewed - EKG Interpretation by Mi EKG shows normal: Sinus rhythm Rate: Normal Rhythm: NSR Voltage: Consistant with LVH When compared to previous EKG there are: No significant change - from 06/22/16 <CONOR AMAYA - Last Filed: 09/09/17 15:18> - Re-evaluation Re-evalutation: 09/06/17 09:25 Patient's labs within normal limits no concerning changes on EKG with negative no concerning findings on chest x-ray. Discussed case with Dr. Pack, told him of labs thus far. Also discussed her nausea and sour taste in her throat and point tenderness in epigastric area pending gallbladder ultrasound this time. She had replication of pain with only mild palpation in epigastric area does not appear cardiac in nature. States her last stress test was in February or Mar of this past year with Dr. Pack as well. Pending ultrasound and repeat troponin 09/06/17 11:16 Patient's symptoms have improved since administration of GI cocktail. Awaiting second troponin second EKG. Her gallbladder ultrasound shows no significant. She states that she has a GI appointment in mid September for reevaluation. If second troponin EKG showed no changes will be discharged. Her family doctor instructed her to take Zantac 3 times a day. I stated she could also augment with Maalox. Her chest pain is more in the epigastric region and is reproducible palpation. She states she had normal stress testing in February 2017/Mar 2017. I also consulted her historian research assistant who agrees her symptoms are more suggestive of gastritis. Return precautions were provided pending second troponin and EKG 09/06/17 12:37 Four hr troponin negative, d/c as previously discussed (CONOR AMAYA) - Vital Signs Vital signs: Temp Pulse Resp BP Pulse Ox 97.4 F 78 16 169/66 H 96 09/06/17 07:18 09/06/17 07:18 09/06/17 10:00 09/06/17 07:18 09/06/17 10:58 - Laboratory Laboratory results interpreted by me: 09/06/17 07:52 Total Bilirubin 1.6 H Total Protein 8.7 H - EKG Interpretation by Me Additional EKG results interpreted by me: 09/06/17 11:49 Serial EKG at 11:39am Rate 72, NSR, L vent hypertropy, no significant changes from prior (CONOR AMAYA ) Discharge <CHAR VARGAS - Last Filed: 09/06/17 08:25> <CONOR AMAYA - Last Filed: 09/09/17 15:18> - Discharge Clinical Impression: Epigastric abdominal pain Condition: Good Disposition: HOME, SELF-CARE Instructions: Antacid Therapy ([facility]), Reflux Disease (GERD) ([facility]) Additional Instructions: Please take Maalox as directed on bottle in addition to Zantac for antacid relief. Please follow-up with your GI appointment scheduled in mid September as previously discussed. Please return to the emergency department for any concerns, or follow-up with your primary care physician for reevaluation in the next 3-5 days if symptoms are continuing. Prescriptions: Bismuth Subsalicylate [Maalox] 1 dose PO ASDIR PRN #1 bottle PRN Reason: Ondansetron [Zofran Odt 4 mg Tablet] 1 tab PO ASDIR PRN #15 tab.rapdis PRN Reason: For Nausea/Vomiting Referrals: VINCENZO RIOS MD [Primary Care Provider] - Follow up as needed Scribe Attestation: 09/09/17 15:18 I personally performed the services described documentation, reviewed and edited the documentation which was dictated to describe my presence, and it accurately records my words and actions. (CONOR AMAYA) Scribe Documentation - Scribe Written by Nurae:: Adrienne Schmidt, 09/06/2017 0829 acting as scribe for :: Yifan <CHAR VARGAS - Last Filed: 09/06/17 08:25>
[2017-09-06 08:16] LABS: ABSOLUTE EOSINOPHILS # (AUTO) 0.1 10^3/uL (0.0-0.6); ABSOLUTE LYMPHOCYTES (AUTO) 1.2 10^3/uL (0.5-4.7); ABSOLUTE MONOCYTES (AUTO) 0.6 10^3/uL (0.1-1.4); ABSOLUTE NEUT (AUTO) 5.7 10^3/uL (1.7-8.2); BASOPHILS % (AUTO) 0.5 % (0-2); EOSINOPHILS % (AUTO) 0.8 % (0-6); HEMATOCRIT 43.6 % (36.0-47.0); HEMOGLOBIN 15.2 g/dL (12.0-15.5); LYMPHOCYTES % (AUTO) 15.5 % (13-45); MEAN CORPUSCULAR HEMOGLOBIN 31.4 pg (27.0-33.4); MEAN CORPUSCULAR HGB CONC 34.7 g/dL (32.0-36.0); MEAN CORPUSCULAR VOLUME 91 fl (80-97); PLATELET COUNT 189 10^3/uL (150-450); RED BLOOD COUNT 4.82 10^6/uL (3.72-5.28); RED CELL DISTRIBUTION WIDTH 13.2 % (11.5-14.0); SEGMENTED NEUTROPHILS % (AUTO) 75.2 % (42-78); TOTAL CELLS COUNTED % (AUTO) 100 %; WHITE BLOOD COUNT 7.6 10^3/uL (4.0-10.5)
--- NOTE | 2017-09-06 08:26 | RADIOLOGY REPORT (SQ) ---
EXAM DESCRIPTION: CHEST SINGLE VIEW COMPLETED DATE/TIME: 09/06/2017 8:11 am REASON FOR STUDY: chest pain COMPARISON: CT chest 09/03/2015 Chest films 06/18/2016, 06/22/2016 EXAM PARAMETERS: NUMBER OF VIEWS: One view. TECHNIQUE: Single frontal radiographic view of the chest acquired. RADIATION DOSE: NA LIMITATIONS: None. FINDINGS: LUNGS AND PLEURA: Lungs are hyperinflated and hyperlucent from obstructive disease. No pleural effusion or pneumothorax. MEDIASTINUM AND HILAR STRUCTURES: No masses. Contour normal. HEART AND VASCULAR STRUCTURES: Mild cardiomegaly BONES: Osteopenic. Lower thoracic and upper lumbar spine fusion hardware HARDWARE: None in the chest. OTHER: No other significant finding. IMPRESSION: Obstructive lung disease, mild cardiomegaly TECHNICAL DOCUMENTATION: JOB ID: [id number] [employer]- All Rights Reserved Reading location - IP/workstation name: [email or web address]
[2017-09-06 08:33] LABS: ALANINE AMINOTRANSFERASE 21 U/L (9-52); ALBUMIN 4.8 g/dL (3.5-5.0); ALKALINE PHOSPHATASE 88 U/L (38-126); ANION GAP 12 (5-19); ASPARTATE AMINO TRANSFERASE 22 U/L (14-36); BILIRUBIN,DIRECT 0.3 mg/dL (0.0-0.4); BILIRUBIN,TOTAL 1.6 mg/dL (0.2-1.3); BLOOD UREA NITROGEN 12 mg/dL (7-20); CALCIUM 9.8 mg/dL (8.4-10.2); CARBON DIOXIDE 29 mmol/L (22-30); CHLORIDE 102 mmol/L (98-107); CREATINE KINASE 49 U/L (30-135); GLUCOSE 101 mg/dL (75-110); SODIUM 142.8 mmol/L (137-145); TOTAL PROTEIN 8.7 g/dL (6.3-8.2)
[2017-09-06 08:48] LABS: CREATINE KINASE MB 0.89 ng/mL (<4.55)
[2017-09-06 08:49] LABS: TROPONIN I < 0.012 ng/mL
--- NOTE | 2017-09-06 09:27 | RADIOLOGY REPORT (SQ) ---
EXAM DESCRIPTION: U/S ABDOMEN LIMITED W/O DOP COMPLETED DATE/TIME: 09/06/2017 9:14 am REASON FOR STUDY: epigastric discomfort COMPARISON: Right upper quadrant ultrasound 06/23/2016 CT chest 09/03/2015 TECHNIQUE: Dynamic and static grayscale images acquired of the abdomen and recorded on PACS. Additio nal selected color Doppler and spectral images recorded. LIMITATIONS: None. FINDINGS: PANCREAS: Midline pancreas unremarkable. LIVER: No masses. Echotexture normal. LIVER VASCULATURE: Normal directional flow of the main portal vein and hepatic veins. GALLBLADDER: No stones. Normal wall thickness. No pericholecystic fluid. ULTRASOUND-DETECTED GLASER'S SIGN: Negative. INTRAHEPATIC DUCTS AND COMMON DUCT: CBD and intrahepatic ducts normal caliber. No filling defects. INFERIOR VENA CAVA: Normal flow. AORTA: No aneurysm. RIGHT KIDNEY: Normal size. Normal echogenicity. No solid or suspicious masses. No hydronephrosis. No calcifications. 1 cm cyst right upper pole kidney. PERITONEAL AND RIGHT PLEURAL SPACE: No ascites or effusions. OTHER: No other significant findings. IMPRESSION: NORMAL RIGHT UPPER QUADRANT ULTRASOUND. TECHNICAL DOCUMENTATION: JOB ID: [id number] [employer]- All Rights Reserved Reading location - IP/workstation name: [email or web address]
--- NOTE | 2017-09-07 00:26 | EKG REPORT ---
SEVERITY:- ABNORMAL ECG - SINUS RHYTHM PROBABLE LEFT ATRIAL ABNORMALITY LEFT AXIS DEVIATION LVH WITH SECONDARY REPOLARIZATION ABNORMALITY ANTERIOR Q WAVES, POSSIBLY DUE TO LVH : Confirmed by: Chio Ibrahim MD 07-Sep-2017 00:25:11
== END 2017-09-06 13:07 | disposition home or self-care (01) ==
LOC: ER 06:58
DX: K21.9 Gastro-esophageal reflux disease without esophagitis (principal); R10.13 Epigastric pain; R11.0 Nausea; I10 Essential (primary) hypertension; J45.909 Unspecified asthma, uncomplicated; R43.8 Other disturbances of smell and taste; I42.2 Other hypertrophic cardiomyopathy; Z88.5 Allergy status to narcotic agent; Z88.0 Allergy status to penicillin; Z88.8 Allergy status to other drugs, medicaments and biological substances
CPT/HCPCS: 93005; 99285; 36415; 82553; 82550; 83735; 85025; 80053; 84484; 71045; 76705; 93010; J3490; A9270

== ENCOUNTER → 2017-12-04 | Outpatient (CLI) | payer MEDICARE, OTHER ==
--- NOTE | 2017-12-04 13:15 | RADIOLOGY REPORT (SQ) ---
EXAM DESCRIPTION: C SP 4 OR 5 VIEWS COMPLETED DATE/TIME: 12/04/2017 11:43 am REASON FOR STUDY: NECK PAIN M54.2 CERVICALGIA COMPARISON: None. NUMBER OF VIEWS: Five views. TECHNIQUE: AP, lateral, obliques and odontoid radiographic images acquired of the cervical spine. LIMITATIONS: None. FINDINGS: MINERALIZATION: Normal. ALIGNMENT: Anatomic. VERTEBRAE: Vertebral bodies of normal height. DISCS: Mild to moderate narrowing at C5-C6. No significant osteophytes or sclerosis. Disc height ma intained. FORAMINA: Mild to moderate bilateral foraminal narrowing at C5-C6 bilaterally. Very small posterior osteophytes encroach on the foramina on the left. Mild uncovertebral arthrosis. LATERAL AND POSTERIOR ELEMENTS: The lateral masses and spinous processes without significant findings . HARDWARE: None in the spine. SOFT TISSUES: No masses or calcifications. Lung apices clear. OTHER: No other significant finding. IMPRESSION: 1. Degenerative disc disease at C5-C6 and mild to moderate bilateral foraminal narrowin g. 2. No acute osseous findings. TECHNICAL DOCUMENTATION: JOB ID: [id number] [employer] All Rights Reserved Reading location - IP/workstation name: [email or web address]
== END ==
LOC: OD 11:17
PROVIDERS: ATTEND Family Medicine Geriatric Medicine
DX: M54.2 Cervicalgia (principal)
CPT/HCPCS: 72050

== ENCOUNTER → 2018-02-12 | Outpatient (CLI) | payer MEDICARE, OTHER ==
[2018-02-12 08:09] LABS: ABSOLUTE EOSINOPHILS # (AUTO) 0.1 10^3/uL (0.0-0.6); ABSOLUTE LYMPHOCYTES (AUTO) 1.4 10^3/uL (0.5-4.7); ABSOLUTE MONOCYTES (AUTO) 0.6 10^3/uL (0.1-1.4); ABSOLUTE NEUT (AUTO) 3.7 10^3/uL (1.7-8.2); BASOPHILS % (AUTO) 0.7 % (0-2); EOSINOPHILS % (AUTO) 2.4 % (0-6); HEMATOCRIT 41.2 % (36.0-47.0); HEMOGLOBIN 14.4 g/dL (12.0-15.5); LYMPHOCYTES % (AUTO) 23.2 % (13-45); MEAN CORPUSCULAR HEMOGLOBIN 32.2 pg (27.0-33.4); MEAN CORPUSCULAR VOLUME 92 fl (80-97); MONOCYTES % (AUTO) 10.3 % (3-13); PLATELET COUNT 143 10^3/uL (150-450); RED BLOOD COUNT 4.48 10^6/uL (3.72-5.28); SEGMENTED NEUTROPHILS % (AUTO) 63.4 % (42-78); TOTAL CELLS COUNTED % (AUTO) 100 %; WHITE BLOOD COUNT 5.9 10^3/uL (4.0-10.5)
[2018-02-12 08:46] LABS: ALANINE AMINOTRANSFERASE 13 U/L (9-52); ANION GAP 12 (5-19); BLOOD UREA NITROGEN 14 mg/dL (7-20); CALCIUM 9.5 mg/dL (8.4-10.2); CARBON DIOXIDE 31 mmol/L (22-30); CHLORIDE 101 mmol/L (98-107); GLUCOSE 90 mg/dL (75-110); POTASSIUM 4.1 mmol/L (3.6-5.0); SODIUM 144.4 mmol/L (137-145)
== END ==
LOC: OD 07:21
PROVIDERS: ATTEND Family Medicine Geriatric Medicine
DX: E78.5 Hyperlipidemia, unspecified (principal); N18.3 Chronic kidney disease, stage 3 (moderate)
CPT/HCPCS: 36415; 80048; 84460; 85025

== ENCOUNTER → 2018-03-22 | Outpatient (CLI) | payer MEDICARE, OTHER ==
--- NOTE | 2018-03-22 10:10 | RADIOLOGY REPORT (SQ) ---
EXAM DESCRIPTION: MRI HEAD COMBO COMPLETED DATE/TIME: 03/22/2018 8:50 am REASON FOR STUDY: BENIGN PAROXYSMAL VERTIGO OF BOTH EARS (H81.13) H81.13 BENIGN PAROXYSMAL VERTIGO, BILATERAL COMPARISON: None. TECHNIQUE: Multiplanar imaging includes non-contrasted T1, T2, FLAIR, diffusion with ADC map and pos t gadolinium contrast sequences. Additional thin slice images with and without gadolinium contrast a cquired in the posterior fossa. Images stored on PACS. CONTRAST TYPE AND DOSE: 10 mL Dotarem. RENAL FUNCTION: GFR > 60. LIMITATIONS: None. FINDINGS: ANATOMY: No anomalies. Normal vascular flow voids. Pituitary fossa normal. CSF SPACES: Normal. CEREBRUM: A few high signal intensity lesions scattered through white matter on FLAIR imaging with di stribution suggesting chronic micro-vascular ischemic changes. No hemorrhage. No edema, masses or m ass effect. No enhancing lesions. POSTERIOR FOSSA: No signal alteration. No edema, masses, mass effect. Internal Auditory Canals, Cereb ello-pontine angles, mastoids normal. No enhancing lesions. Detailed imaging of the 5th, 7th, and 8th nerves and [place] within normal limits with no enhancing lesions. DIFFUSION IMAGING: Negative for acute or sub-acute infarction. ORBITS: No masses. Globes normal. PARANASAL SINUSES: No fluid levels. Mucosa normal. OTHER: No other significant finding. IMPRESSION: MILD CHRONIC MICRO-VASCULAR ISCHEMIC CHANGES. OTHERWISE NORMAL MRI OF THE BRAIN AND POST ERIOR FOSSA WITHOUT AND WITH INTRAVENOUS GADOLINIUM CONTRAST. TECHNICAL DOCUMENTATION: JOB ID: [id number] [employer]- All Rights Reserved Reading location - IP/workstation name: [facility]
== END ==
LOC: RAD 07:21
PROVIDERS: ATTEND Otolaryngology
DX: H81.13 Benign paroxysmal vertigo, bilateral (principal)
CPT/HCPCS: 82565; 70553; A9576

== ENCOUNTER → 2018-05-15 | Outpatient (CLI) | payer MEDICARE, OTHER ==
[2018-05-15 08:27] LABS: ABSOLUTE BASOPHILS # (AUTO) 0.1 10^3/uL (0.0-0.2); ABSOLUTE EOSINOPHILS # (AUTO) 0.3 10^3/uL (0.0-0.6); ABSOLUTE LYMPHOCYTES (AUTO) 1.5 10^3/uL (0.5-4.7); ABSOLUTE MONOCYTES (AUTO) 0.6 10^3/uL (0.1-1.4); BASOPHILS % (AUTO) 1.1 % (0-2); EOSINOPHILS % (AUTO) 4.7 % (0-6); HEMATOCRIT 41.8 % (36.0-47.0); HEMOGLOBIN 14.3 g/dL (12.0-15.5); LYMPHOCYTES % (AUTO) 27.5 % (13-45); MEAN CORPUSCULAR HEMOGLOBIN 31.3 pg (27.0-33.4); MEAN CORPUSCULAR HGB CONC 34.2 g/dL (32.0-36.0); MEAN CORPUSCULAR VOLUME 92 fl (80-97); MONOCYTES % (AUTO) 11.7 % (3-13); PLATELET COUNT 149 10^3/uL (150-450); RED BLOOD COUNT 4.57 10^6/uL (3.72-5.28); RED CELL DISTRIBUTION WIDTH 13.7 % (11.5-14.0); TOTAL CELLS COUNTED % (AUTO) 100 %; WHITE BLOOD COUNT 5.5 10^3/uL (4.0-10.5)
[2018-05-15 08:55] LABS: ALANINE AMINOTRANSFERASE 31 U/L (9-52); TRIGLYCERIDES 72 mg/dL (<150)
[2018-05-15 09:07] LABS: DIRECT LDL 91 mg/dL (<100)
== END ==
LOC: OD 07:13
PROVIDERS: ATTEND Family Medicine Geriatric Medicine
DX: E78.5 Hyperlipidemia, unspecified (principal); N18.3 Chronic kidney disease, stage 3 (moderate)
CPT/HCPCS: 36415; 80061; 84460; 85025

== ENCOUNTER → 2018-08-28 | Outpatient (CLI) | payer MEDICARE, OTHER ==
[2018-08-28 08:10] LABS: ABSOLUTE BASOPHILS # (AUTO) 0.1 10^3/uL (0.0-0.2); ABSOLUTE EOSINOPHILS # (AUTO) 0.2 10^3/uL (0.0-0.6); ABSOLUTE LYMPHOCYTES (AUTO) 1.4 10^3/uL (0.5-4.7); ABSOLUTE MONOCYTES (AUTO) 0.6 10^3/uL (0.1-1.4); ABSOLUTE NEUT (AUTO) 3.4 10^3/uL (1.7-8.2); EOSINOPHILS % (AUTO) 3.2 % (0-6); HEMATOCRIT 42.4 % (36.0-47.0); HEMOGLOBIN 14.6 g/dL (12.0-15.5); LYMPHOCYTES % (AUTO) 24.9 % (13-45); MEAN CORPUSCULAR HGB CONC 34.5 g/dL (32.0-36.0); MEAN CORPUSCULAR VOLUME 90 fl (80-97); MONOCYTES % (AUTO) 10.7 % (3-13); PLATELET COUNT 148 10^3/uL (150-450); RED BLOOD COUNT 4.71 10^6/uL (3.72-5.28); RED CELL DISTRIBUTION WIDTH 13.3 % (11.5-14.0); SEGMENTED NEUTROPHILS % (AUTO) 60.2 % (42-78); TOTAL CELLS COUNTED % (AUTO) 100 %; WHITE BLOOD COUNT 5.6 10^3/uL (4.0-10.5)
[2018-08-28 08:23] LABS: ANION GAP 10 (5-19); BLOOD UREA NITROGEN 15 mg/dL (7-20); CALCIUM 9.6 mg/dL (8.4-10.2); CARBON DIOXIDE 30 mmol/L (22-30); CHLORIDE 101 mmol/L (98-107); GLUCOSE 91 mg/dL (75-110); POTASSIUM 4.4 mmol/L (3.6-5.0); SODIUM 140.9 mmol/L (137-145)
== END ==
LOC: OD 07:18
PROVIDERS: ATTEND Family Medicine Geriatric Medicine
DX: I12.9 Hypertensive chronic kidney disease with stage 1 through stage 4 chronic kidney disease, or unspecified chronic kidney disease (principal); N18.3 Chronic kidney disease, stage 3 (moderate); D69.6 Thrombocytopenia, unspecified; Z79.899 Other long term (current) drug therapy
CPT/HCPCS: 36415; 80048; 85025

== ENCOUNTER → 2018-11-28 | Outpatient (CLI) | payer MEDICARE, OTHER ==
[2018-11-28 08:33] LABS: CHOLESTEROL 156.45 mg/dL (0-200); TRIGLYCERIDES 77 mg/dL (<150)
[2018-11-28 08:47] LABS: DIRECT LDL 88 mg/dL (<100)
== END ==
LOC: OD 07:11
PROVIDERS: ATTEND Family Medicine Geriatric Medicine
DX: E78.5 Hyperlipidemia, unspecified (principal); Z79.899 Other long term (current) drug therapy
CPT/HCPCS: 36415; 80061; 84460

== ENCOUNTER → 2019-01-06 | Outpatient (CLI) | payer MEDICARE, OTHER ==
[2019-01-06 08:23] LABS: ABSOLUTE BASOPHILS # (AUTO) 0.1 10^3/uL (0.0-0.2); ABSOLUTE EOSINOPHILS # (AUTO) 0.2 10^3/uL (0.0-0.6); ABSOLUTE LYMPHOCYTES (AUTO) 1.9 10^3/uL (0.5-4.7); ABSOLUTE MONOCYTES (AUTO) 0.7 10^3/uL (0.1-1.4); ABSOLUTE NEUT (AUTO) 4.4 10^3/uL (1.7-8.2); EOSINOPHILS % (AUTO) 2.6 % (0-6); HEMATOCRIT 43.4 % (36.0-47.0); HEMOGLOBIN 14.8 g/dL (12.0-15.5); LYMPHOCYTES % (AUTO) 26.4 % (13-45); MEAN CORPUSCULAR HEMOGLOBIN 30.5 pg (27.0-33.4); MEAN CORPUSCULAR VOLUME 90 fl (80-97); MONOCYTES % (AUTO) 9.6 % (3-13); PLATELET COUNT 155 10^3/uL (150-450); RED BLOOD COUNT 4.85 10^6/uL (3.72-5.28); SEGMENTED NEUTROPHILS % (AUTO) 60.4 % (42-78); TOTAL CELLS COUNTED % (AUTO) 100 %; WHITE BLOOD COUNT 7.3 10^3/uL (4.0-10.5)
[2019-01-06 08:31] LABS: ANION GAP 9 (5-19); BLOOD UREA NITROGEN 13 mg/dL (7-20); CALCIUM 9.7 mg/dL (8.4-10.2); CARBON DIOXIDE 30 mmol/L (22-30); CHLORIDE 100 mmol/L (98-107); GLUCOSE 83 mg/dL (75-110); POTASSIUM 4.4 mmol/L (3.6-5.0)
== END ==
LOC: OD 07:08
PROVIDERS: ATTEND Family Medicine Geriatric Medicine
DX: I10 Essential (primary) hypertension (principal); R63.5 Abnormal weight gain; D69.6 Thrombocytopenia, unspecified; E78.5 Hyperlipidemia, unspecified; Z79.899 Other long term (current) drug therapy
CPT/HCPCS: 36415; 80048; 84443; 85025

== ENCOUNTER 2019-04-06 02:42 | Inpatient (IN) | payer MEDICARE ==
[2019-04-06] MEDS ORDERED: DILTIAZEM HCL INJ 25 MG/5 ML VIAL IV ONE (03:00)
[2019-04-06] MEDS ORDERED: NORMAL SALINE 1000 ML 500 ML IV PRN (03:20)
[2019-04-06 03:21] LABS: ABSOLUTE BASOPHILS # (AUTO) 0.1 10^3/uL (0.0-0.2); ABSOLUTE EOSINOPHILS # (AUTO) 0.2 10^3/uL (0.0-0.6); ABSOLUTE LYMPHOCYTES (AUTO) 2.5 10^3/uL (0.5-4.7); ABSOLUTE MONOCYTES (AUTO) 0.8 10^3/uL (0.1-1.4); ABSOLUTE NEUT (AUTO) 5.8 10^3/uL (1.7-8.2); BASOPHILS % (AUTO) 0.5 % (0-2); EOSINOPHILS % (AUTO) 1.7 % (0-6); HEMATOCRIT 45.8 % (36.0-47.0); HEMOGLOBIN 15.7 g/dL (12.0-15.5); LYMPHOCYTES % (AUTO) 26.8 % (13-45); MEAN CORPUSCULAR HEMOGLOBIN 30.9 pg (27.0-33.4); MEAN CORPUSCULAR HGB CONC 34.3 g/dL (32.0-36.0); MEAN CORPUSCULAR VOLUME 90 fl (80-97); PLATELET COUNT 159 10^3/uL (150-450); RED BLOOD COUNT 5.09 10^6/uL (3.72-5.28); RED CELL DISTRIBUTION WIDTH 13.2 % (11.5-14.0); TOTAL CELLS COUNTED % (AUTO) 100 %; WHITE BLOOD COUNT 9.3 10^3/uL (4.0-10.5)
[2019-04-06 03:38] LABS: ALBUMIN 4.7 g/dL (3.5-5.0); ALKALINE PHOSPHATASE 106 U/L (38-126); ANION GAP 13 (5-19); ASPARTATE AMINO TRANSFERASE 24 U/L (14-36); BILIRUBIN,DIRECT 0.3 mg/dL (0.0-0.4); BILIRUBIN,TOTAL 0.7 mg/dL (0.2-1.3); BLOOD UREA NITROGEN 15 mg/dL (7-20); CALCIUM 9.5 mg/dL (8.4-10.2); CARBON DIOXIDE 27 mmol/L (22-30); CHLORIDE 99 mmol/L (98-107); CREATINE KINASE 75 U/L (30-135); GLUCOSE 128 mg/dL (75-110); TOTAL PROTEIN 8.5 g/dL (6.3-8.2)
[2019-04-06] MEDS ORDERED: METOPROLOL TARTRATE PF/INJ 5 MG/5 ML SDV IV ONE (03:44)
[2019-04-06 03:49] LABS: CREATINE KINASE MB 1.34 ng/mL (<4.55)
[2019-04-06] MEDS ORDERED: ENOXAPARIN SODIUM INJ 60 MG/0.6 ML DISP.SYRIN SUBCUT ONE (03:49)
[2019-04-06 03:50] LABS: TROPONIN I < 0.012 ng/mL
[2019-04-06] MEDS ORDERED: DILTIAZEM HCL/D5W 125 MG/125 ML RTUINJ IV PRN (04:16)
[2019-04-06 04:33] LABS: FREE T3 3.55 pg/mL (2.77-5.27); FREE T4 (FREE THYROXINE) 0.99 ng/dL (0.78-2.19)
[2019-04-06 04:38] LABS: APPEARANCE,URINE CLEAR; BILIRUBIN,URINE NEGATIVE (NEGATIVE); COLOR,URINE COLORLESS; GLUCOSE, URINE NEGATIVE (NEGATIVE); KETONES,URINE NEGATIVE (NEGATIVE); PROTEIN,URINE 30 mg/dL (NEGATIVE); URINE SPECIFIC GRAVITY 1.005; UROBILINOGEN,URINE NEGATIVE mg/dL (<2.0)
[2019-04-06 04:46] LABS: THYROID STIMULATING HORMONE 2.93 uIU/mL (0.47-4.68)
--- NOTE | 2019-04-06 04:56 | ER Document Report ---
Entered by CHEYENNE PATTON SCRIBE 04/06/19 0302 Acting as scribe for:EUGENE LIGHT IV, MD ED Cardiac - General Chief Complaint: Arrhythmia Stated Complaint: AFIB WITH RVR Time Seen by Provider: 04/06/19 03:02 Mode of Arrival: Medic Information source: Patient Notes: This 74 year old female with a history of hypertrophic cardiomyopathy brought in by EMS presents to the ED today with complaints of arrhythmia that began prior to arrival. Patient states that she woke up this morning to use the bathroom when she noticed that her heart was beating fast. Patient reports shortness of breath, but denies chest pain. TRAVEL OUTSIDE OF THE [place] IN LAST 30 DAYS: No - Related Data Allergies/Adverse Reactions: codeine [Codeine] Allergy (Unknown, Verified 06/18/16 19:08) morphine [Morphine] Allergy (Unknown, Verified 06/18/16 19:08) Penicillins Allergy (Unknown, Verified 06/18/16 19:08) Rash captopril Allergy (Verified 06/19/16 07:11) Angioneurotic Edema nitroglycerin Adverse Reaction (Verified 06/22/16 13:02) Past Medical History - General Information source: Patient, [facility] Records - Social History Smoking Status: Unknown if Ever Smoked Cigarette use (# per day): No Chew tobacco use (# tins/day): No Smoking Education Provided: No Frequency of alcohol use: None Drug Abuse: None Family History: Reviewed & Not Pertinent, CAD, Other - Hypertrophic cardiomyopathy Patient has suicidal ideation: No Patient has homicidal ideation: No - Past Medical History Cardiac Medical History: Reports: Hx Hypercholesterolemia, Hx Hypertension, Hx Heart Murmur Pulmonary Medical History: Reports: Hx Asthma, Hx Pneumonia - 2012 GI Medical History: Reports: Hx Gastroesophageal Reflux Disease Musculoskeletal Medical History: Reports Hx Arthritis - L.hand Past Surgical History: Reports: Hx Hysterectomy, Hx Orthopedic Surgery - fusion T12L2, Other - 3apr L pterigium - Immunizations Hx Diphtheria, Pertussis, Tetanus Vaccination: Yes Review of Systems - Review of Systems Constitutional: No symptoms reported EENT: No symptoms reported Cardiovascular: See HPI, Heart racing. denies: Chest pain Respiratory: See HPI, Short of breath Gastrointestinal: No symptoms reported Genitourinary: No symptoms reported Female Genitourinary: No symptoms reported Musculoskeletal: No symptoms reported Skin: No symptoms reported Hematologic/Lymphatic: No symptoms reported Neurological/Psychological: No symptoms reported -: Yes All other systems reviewed and negative Physical Exam - Vital signs Vitals: BP 165/96 H 04/06/19 02:47 - General General appearance: Alert - HEENT Head: Normocephalic, Atraumatic Eyes: Normal Pupils: PERRL - Respiratory Respiratory status: No respiratory distress Chest status: Nontender Breath sounds: Normal Chest palpation: Normal - Cardiovascular Rhythm: Irregularly irregular, Tachycardia Heart sounds: Normal auscultation Murmur: No - Abdominal Inspection: Normal Distension: No distension Bowel sounds: Normal Tenderness: Nontender - Abdomen soft Organomegaly: No organomegaly - Back Back: Normal, Nontender - Extremities General upper extremity: Normal inspection General lower extremity: Normal inspection - Neurological Neuro grossly intact: Yes - Psychological Associated symptoms: Normal affect, Normal mood - Skin Skin Temperature: Warm Skin Moisture: Dry Skin Color: Normal Course - Vital Signs Vital signs: Temp Pulse Resp BP Pulse Ox 99.0 F 19 124/68 96 04/06/19 02:56 04/06/19 05:41 04/06/19 05:41 04/06/19 05:41 - Laboratory Result Diagrams: 04/06/19 02:46 04/06/19 02:46 Laboratory results interpreted by me: 04/06/19 04/06/19 04/06/19 02:46 02:46 04:10 Hgb 15.7 H Glucose 128 H Total Protein 8.5 H Urine Protein 30 H Leukocyte Esterase Rfl SMALL H - EKG Interpretation by Me Additional EKG results interpreted by me: 04/06/19 05:19 EKG obtained on 04/06/2019 at 0256 hrs. was interpreted by this MD. Findings: Tachycardia rate 160+ baseline artifact and nonspecific ST segment changes are present. - Consults dr. arzola Time consulted: 05:08 - recommended esmolol drip, avoid ntg, avoid lasix, avoid digoxin given h/o of IHSS Reason for consultation: 04/06/19 05:10 tachydysrhythmia theo arndt, global account executive Time consulted: 05:21 Reason for consultation: 04/06/19 05:21 tachydysrhythmia, on esmolol drip dr. zapata, hospitalist Time consulted: 06:00 Reason for consultation: 04/06/19 06:03 pt converted to sinus rhythm before esmolol was started Consulted provider: will see as inpatient Critical Care Note - Critical Care Note Total time excluding time spent on procedures (mins): 90 Discharge - Discharge Clinical Impression: Idiopathic hypertrophic subaortic stenosis, Tachycardia Condition: Good Disposition: ADMITTED INPATIENT Admitting Provider: Kendell (Hospitalist) Unit Admitted: IMCU I personally performed the services described in the documentation, reviewed and edited the documentation which was dictated to the scribe in my presence, and it accurately records my words and actions.
[2019-04-06] MEDS ORDERED: ESMOLOL HCL/SOD CL 2,500 MG/250 ML RTUINJ IV PRN (05:13)
[2019-04-06] MEDS ORDERED: ESMOLOL HCL INJ/PF 100 MG/10 ML SDV IV ONE (05:13)
--- NOTE | 2019-04-06 08:09 | EKG REPORT ---
SEVERITY:- ABNORMAL ECG - SINUS RHYTHM FIRST DEGREE AV BLOCK LVH WITH SECONDARY REPOLARIZATION ABNORMALITY ANTERIOR INFARCT, AGE INDETERMINATE BORDERLINE PROLONGED QT INTERVAL : Confirmed by: Cody Graff MD 06-Apr-2019 08:09:26
--- NOTE | 2019-04-06 08:12 | EKG REPORT ---
SEVERITY:- ABNORMAL ECG - SUPRAVENTRICULAR TACHYCARDIA LEFT ANTERIOR FASCICULAR BLOCK LVH WITH SECONDARY REPOLARIZATION ABNORMALITY ANTERIOR INFARCT, OLD : Confirmed by: Cody Graff MD 06-Apr-2019 08:12:03
--- NOTE | 2019-04-06 10:05 | PDOC CONSULTATION ---
Consultation-Blank Consultation: Impression/RECOMMENDATION: 1. Narrow complex tachycardia. Seems to be irregular. Most likely atrial flutter/fibrillation with rapid ventricle response. Resolved. No recurrence. Doubt that this is an SVT. Will increase the patient's Cardizem to 90 mg p.o. every 8 hours. We will start the patient also on Eliquis. Will get a 30-day event monitor as an outpatient. 2. Elevated troponin I secondary to type II myocardial infarction [supply demand mismatch: This is not a acute coronary event. The troponins are trending down. This is most likely secondary to the patient's rapid heart rate in a patient with IHSS. 3. IHSS [HOCM): The patient has resting and provocative gradient, but is been sending the severity of this obstruction clinically very well without major symptoms. Will get a patient's echo report from [facility] and if not done within the last 6 months we will repeat one. 4. Hypertension: Her blood hypertension is mild. Would recommend increasing the patient's Cardizem to 90 mg p.o. every 8 hours. 5. History of asthma. Medications reviewed. Medical regimen and management plan discussed with attending provider on the case. Medical decision making is of high complexity. 60 minutes spent as patient more than 50% time spent in direct patient care. The patient appears to be stable and is desirous of going home. Will follow the patient in the office since she is a patient of mine who regularly follows up with me in the office. She has my contact number to call me if she should have any problems. Okay to discharge the patient in the a.m.
[2019-04-06] MEDS ORDERED: PROMETHAZINE HCL INJ 25 MG/1 ML VIAL IV PRN (11:24)
[2019-04-06] MEDS ORDERED: PROMETHAZINE HCL 25 MG TABLET PO PRN (11:24)
--- NOTE | 2019-04-06 12:11 | PDOC H&P ---
History of Present Illness Admission Date/PCP: 04/06/19 05:40 VINCENZO RIOS MD History of Present Illness: TAIWO DAVIDSON is a 74 year old female with past medical history significant for IHSS/hocm, COPD/asthma from secondhand smoke, HTN, HLD who presents to the ED with palpitations and respiratory distress. Found by ED to be in rapid tachyarrhythmia with rate over 160. Patient was started on IV diltiazem drip without much response and was plan to switch to esmolol drip and be sent to ICU. Heart rate converted to normal sinus rhythm after interventions patient was monitored closely in the ER thereafter. Dr. Ibrahim in cardiology was consulted and he requested the patient be admitted for further monitoring and work-up. Patient has a history of IHSS, followed by outpatient cardiology closely. Per patient, she had an upper respiratory illness approximately 3 days prior to admission as well. She had a mildly productive cough of clear sputum, subjective fever/chills, and sore throat. She did not take any antibiotics for this but did take Mucinex and nasal spray. She believes she had a reaction to the Mucinex. Admitted for further work-up and treatment. Past Medical History Cardiac Medical History: Reports: Hyperlipidema, Hypertension, Heart Murmur, Other - IHSS Denies: Coronary Artery Disease, Myocardial Infarction Pulmonary Medical History: Reports: Asthma, Chronic Obstructive Pulmonary Disease (COPD) - Due to secondhand smoke, Pneumonia - 2012 Denies: Bronchitis EENT Medical History: Reports: None Neurological Medical History: Denies: Seizures Malignancy Medical History: Reports: Skin Cancer - Status post surgical removal without recurrence per patient GI Medical History: Reports: Gastroesophageal Reflux Disease Musculoskeltal Medical History: Reports: Arthritis - L.hand Psychiatric Medical History: Reports: None Traumatic Medical History: Reports: None Hematology: Denies: Anemia Past Surgical History Past Surgical History: Reports: Hysterectomy, Orthopedic Surgery - fusion T12L2, Other - 3apr L pterigium Denies: Pacemaker Social History Information Source: Patient Lives with: Family Smoking Status: Never Smoker Frequency of Alcohol Use: None Hx Recreational Drug Use: No Drugs: None Hx Prescription Drug Abuse: No - Advance Directive Resuscitation Status: Full Code Surrogate healthcare decision maker:: Family History Family History: Reviewed & Not Pertinent, CAD, Other - Hypertrophic cardiomyopathy Parental Family History Reviewed: Yes Children Family History Reviewed: Yes Sibling(s) Family History Reviewed.: Yes Medication/Allergy Allergies/Adverse Reactions: codeine [Codeine] Allergy (Unknown, Verified 06/18/16 19:08) morphine [Morphine] Allergy (Unknown, Verified 06/18/16 19:08) Penicillins Allergy (Unknown, Verified 06/18/16 19:08) Rash captopril Allergy (Verified 06/19/16 07:11) Angioneurotic Edema nitroglycerin Adverse Reaction (Verified 06/22/16 13:02) Review of Systems All systems: reviewed and no additional remarkable complaints except as stated - Previous palpitations and respiratory distress, cough productive of clear spu carmen, sore throat; no other complaints unless otherwise stated in HPI Physical Exam Vital Signs: Temp Pulse Resp BP Pulse Ox 98.0 F 67 16 152/65 H 96 04/06/19 08:03 04/06/19 08:03 04/06/19 08:03 04/06/19 08:03 04/06/19 08:03 Intake & Output 04/05/19 04/06/19 04/07/19 06:59 06:59 06:59 Intake Total 540 Balance 540 Weight 53.07 kg General appearance: PRESENT: no acute distress, well-developed, well-nourished Head exam: PRESENT: atraumatic, normocephalic Eye exam: PRESENT: conjunctiva pink Mouth exam: PRESENT: moist Respiratory exam: PRESENT: clear to auscultation geeta. ABSENT: rales, rhonchi, wheezes Cardiovascular exam: PRESENT: RRR, systolic murmur - Grade 4/6 systolic ejection murmur at RUSB. ABSENT: diastolic murmur, rubs GI/Abdominal exam: PRESENT: normal bowel sounds, soft. ABSENT: distended, gua rding, mass, organolmegaly, rebound, tenderness Rectal exam: PRESENT: deferred Musculoskeletal exam: PRESENT: ambulatory Neurological exam: PRESENT: alert, awake Psychiatric exam: PRESENT: appropriate affect, normal mood Skin exam: PRESENT: dry, intact, warm Results Laboratory Results: 04/06/19 02:46 04/06/19 02:46 04/06/19 04/06/19 04/06/19 02:46 02:46 02:46 WBC 9.3 RBC 5.09 Hgb 15.7 H Hct 45.8 MCV 90 MCH 30.9 MCHC 34.3 RDW 13.2 Plt Count 159 Seg Neutrophils % 62.0 Sodium 138.8 Potassium 4.0 Chloride 99 Carbon Dioxide 27 Anion Gap 13 BUN 15 Creatinine 0.84 Est GFR ( Amer) > 60 Glucose 128 H Calcium 9.5 Magnesium 2.1 Total Bilirubin 0.7 AST 24 Alkaline Phosphatase 106 Total Protein 8.5 H Albumin 4.7 TSH Free T4 Free T3 pg/mL Urine Color Urine Appearance Urine pH Ur Specific [place] Urine Protein Urine Glucose (UA) Urine Ketones Urine Blood Urine RBC (Auto) 04/06/19 04/06/19 02:46 04:10 WBC RBC Hgb Hct MCV MCH MCHC RDW Plt Count Seg Neutrophils % Sodium Potassium Chloride Carbon Dioxide Anion Gap BUN Creatinine Est GFR ( Amer) Glucose Calcium Magnesium Total Bilirubin AST Alkaline Phosphatase Total Protein Albumin TSH 2.93 Free T4 0.99 Free T3 pg/mL 3.55 Urine Color COLORLESS Urine Appearance CLEAR Urine pH 8.0 Ur Specific [place] 1.005 Urine Protein 30 H Urine Glucose (UA) NEGATIVE Urine Ketones NEGATIVE Urine Blood NEGATIVE Urine RBC (Auto) 1 04/06/19 04/06/19 04/06/19 02:46 02:46 05:58 Creatine Kinase 75 CK-MB (CK-2) 1.34 Troponin I < 0.012 0.165 Assessment and Plan - Diagnosis (1) Sustained SVT Is this a current diagnosis for this admission?: Yes Plan: Possibly precipitated by cold medications patient was taking at home for URI Stop all URI medications Given diltiazem drip in ED, had plan to give esmolol drip but patient converted to NSR Cardiology consulted by ED, Dr. Ibrahim following Continue home diltiazem 90 mg ER twice daily Previous TTE done in 2017, showed severe LVH asymmetric, EF 70% and normal systolic and diastolic function Repeat echocardiogram (2) Sore throat Is this a current diagnosis for this admission?: Yes Plan: Suspect viral etiology; will check rapid strep as untreated strep could have se eleazar consequences in someone with severe cardiac disease already Patient is allergic to penicillins and fluoroquinolones if antibiotics were indicated Lozenges if we have these available here (3) COPD (chronic obstructive pulmonary disease) Is this a current diagnosis for this admission?: Yes Plan: Due to extensive secondhand smoke exposure; patient has never smoked but her father and smoked excessively around her Follows with oil well service operator helper outpatient She is not in exacerbation Does not require supplemental oxygen Only uses pro-air as needed (4) Asthma Is this a current diagnosis for this admission?: Yes Plan: Follows with pulmonology As above (5) Hypertrophic obstructive cardiomyopathy (HOCM) Is this a current diagnosis for this admission?: Yes Plan: Followed by cardiology Treatment as above (6) Idiopathic hypertrophic subaortic stenosis Is this a current diagnosis for this admission?: Yes Plan: Follows with Dr. Ibrahim who is consulted here Longstanding problem followed outpatient (7) Essential (primary) hypertension Is this a current diagnosis for this admission?: Yes - Time Time Spent with patient: 35 or more minutes Medications reviewed and adjusted accordingly: Yes Anticipated discharge: Home Within: within 72 hours - Inpatient Certification Based on my medical assessment, after consideration of the patient's comorbidities, presenting symptoms, or acuity I expect that the services needed warrant INPATIENT care.: Yes I certify that my determination is in accordance with my understanding of Medicare's requirements for reasonable and necessary INPATIENT services [42 CFR 412.3e].: Yes Medical Necessity: Significant Comorbidiites Make Outpatient Treatment Too Risky, Need Close Monitoring Due to Risk of Patient Decompensation, Risk of Diagnosis Which Will Require Inpatient Eval/Care/Monitoring
--- NOTE | 2019-04-06 12:12 | ADVANCED CARE ---
- Diagnosis (1) Sustained SVT Diagnosis Current: Yes (2) Sore throat Diagnosis Current: Yes (3) COPD (chronic obstructive pulmonary disease) Diagnosis Current: Yes (4) Asthma Diagnosis Current: Yes (5) Hypertrophic obstructive cardiomyopathy (HOCM) Diagnosis Current: Yes (6) Idiopathic hypertrophic subaortic stenosis Diagnosis Current: Yes (7) Essential (primary) hypertension Diagnosis Current: Yes Attendance: Patient Resuscitation Status: Full Code Discussion: All aspects of code including CPR/intubation/cardioversion discussed with patient and she states very clearly that she would like to be full code. She states her is her Vianca Powellvester [phone] Time Spent: 17 minutes
[2019-04-06] MEDS: DILTIAZEM HCL 90 MG TABLET PO SCH ×2 (14:56→21:56)
[2019-04-06] MEDS: APIXABAN 5 MG TABLET PO SCH (17:10)
[2019-04-07 05:18] LABS: HEMATOCRIT 41.5 % (36.0-47.0); HEMOGLOBIN 14.5 g/dL (12.0-15.5); MEAN CORPUSCULAR HEMOGLOBIN 31.6 pg (27.0-33.4); MEAN CORPUSCULAR HGB CONC 34.9 g/dL (32.0-36.0); MEAN CORPUSCULAR VOLUME 90 fl (80-97); PLATELET COUNT 147 10^3/uL (150-450); RED BLOOD COUNT 4.59 10^6/uL (3.72-5.28); RED CELL DISTRIBUTION WIDTH 13.1 % (11.5-14.0); WHITE BLOOD COUNT 6.4 10^3/uL (4.0-10.5)
[2019-04-07 05:36] LABS: ANION GAP 6 (5-19); BLOOD UREA NITROGEN 15 mg/dL (7-20); CALCIUM 9.4 mg/dL (8.4-10.2); CARBON DIOXIDE 30 mmol/L (22-30); CHLORIDE 100 mmol/L (98-107); GLUCOSE 94 mg/dL (75-110); POTASSIUM 4.1 mmol/L (3.6-5.0)
[2019-04-07] MEDS: DILTIAZEM HCL 90 MG TABLET PO SCH (06:33)
--- NOTE | 2019-04-07 06:33 | EKG REPORT ---
SEVERITY:- ABNORMAL ECG - SINUS RHYTHM LVH WITH SECONDARY REPOLARIZATION ABNORMALITY ANTERIOR INFARCT, AGE INDETERMINATE BORDERLINE PROLONGED QT INTERVAL : Confirmed by: Cody Graff MD 07-Apr-2019 06:32:32
[2019-04-07] MEDS ORDERED: ALBUTEROL SULFATE HFA (90 MCG/PUFF) 200 PUFF/8.5 GM MDI IH PRN (08:20)
[2019-04-07] MEDS ORDERED: GLY OU PRN (08:20)
[2019-04-07] MEDS ORDERED: CARBOXYMETHYL OU PRN (08:20)
[2019-04-07] MEDS ORDERED: POLY80 OU PRN (08:20)
[2019-04-07] MEDS ORDERED: CLOBETASOL PROPIONATE 0.05% CREAM 15 GM TP PRN (08:20)
[2019-04-07] MEDS ORDERED: [UNRECOGNIZED DRUG - OTHER] OU PRN (08:20)
[2019-04-07] MEDS ORDERED: ACETAMINOPHEN 325 MG TABLET PO PRN (08:20)
[2019-04-07 08:28] VITALS: BP 138/64
[2019-04-07] MEDS ORDERED: CARBOXYMETHYLCELLULOSE SOD 0.5% 0.4 ML DROPERETTE OU PRN (08:29)
--- NOTE | 2019-04-07 09:32 | EKG REPORT ---
SEVERITY:- ABNORMAL ECG - SINUS RHYTHM FIRST DEGREE AV BLOCK LEFT VENTRICULAR HYPERTROPHY ANTERIOR INFARCT, AGE INDETERMINATE : Confirmed on behalf of: Cody Graff MD 07-Apr-2019 09:31:42
[2019-04-07] MEDS: APIXABAN 5 MG TABLET PO SCH (09:48)
[2019-04-07] MEDS ORDERED: CALCIUM CARBONATE 250 MG/VITAMIN D3 125 UNIT TABLET PO SCH (10:00)
[2019-04-07] MEDS ORDERED: FAMOTIDINE 20 MG TABLET PO SCH (10:00)
[2019-04-07] MEDS ORDERED: DOCUSATE SODIUM 100 MG CAPSULE PO SCH (10:00)
[2019-04-07] MEDS ORDERED: TRIAMCINOLONE ACETONIDE NS SCH (10:00)
[2019-04-07] MEDS ORDERED: FLUTICASONE NASAL SPRAY 50 MCG/SPRY 120 SPRAY/16 GM NASL SCH (10:00)
[2019-04-07] MEDS ORDERED: ENOXAPARIN SODIUM INJ 40 MG/0.4 ML DISP.SYRIN SUBCUT SCH (10:00)
[2019-04-07] MEDS ORDERED: ASPIRIN 81 MG TABLET, ENT COATED PO SCH (10:00)
--- NOTE | 2019-04-07 10:34 | PDOC DISCHARGE SUMMARY ---
Impression - Admit/DC Date/PCP Admission Date/Primary Care Provider: 04/06/19 05:40 VINCENZO RIOS MD Discharge Date: 04/07/19 - Discharge Diagnosis (1) Sustained SVT Is this a current diagnosis for this admission?: Yes (2) Asthma Is this a current diagnosis for this admission?: Yes (3) COPD (chronic obstructive pulmonary disease) Is this a current diagnosis for this admission?: Yes (4) HTN (hypertension) Is this a current diagnosis for this admission?: Yes (5) Hypertrophic obstructive cardiomyopathy (HOCM) Is this a current diagnosis for this admission?: Yes (6) Idiopathic hypertrophic subaortic stenosis Is this a current diagnosis for this admission?: Yes (7) Sore throat Is this a current diagnosis for this admission?: Yes - Assessment Summary: Patient presented with complaints of palpitations. At the time, patient was hemodynamically stable but was found to be in supraventricular tachycardia with a heart rate of 160s as noted on EKG. Patient was started on a Cardizem drip and spontaneously converted back to regular sinus rhythm at a normal rate. Patient's electrolytes were noted to be within normal limits. Patient's troponin was elevated and peaked at 0.42 then down trended which was thought to be secondary to demand mismatch from the rapid heart rate and not ACS. Patient was evaluated by mess cook Dr. Pack who is patient's primary mess cook in the outpatient setting who feels that patient's SVT is likely atrial fibrillation with rapid ventricular response and started patient on Eliquis given elevated chads VASC score and increase patient's diltiazem from twice a day to 3 times a day dosing. Patient's heart rate maintained in normal sinus rhythm and patient is asymptomatic at the moment and has been cleared by cardiology for discharge from a cardiac standpoint. Patient will be discharged to follow-up with Dr. Pack in the office. - Additional Information Resuscitation Status: Full Code Discharge Diet: Cardiac Discharge Activity: Activity As Tolerated Referrals: VINCENZO RIOS MD [Primary Care Provider] - Follow up as needed JAYRO OTERO MD [ACTIVE STAFF] - Prescriptions: Diltiazem HCl [Cardizem 90 mg Tablet] 90 mg PO Q8 30 Days tablet Apixaban [Eliquis 5 mg Tablet] 5 mg PO BID #60 tablet Home Medications: Acetaminophen [Tylenol] 500 mg PO Q6HP PRN 04/06/19 Albuterol Sulfate [Proair HFA Inhalation Aerosol 8.5 gm MDI] 1 puff IH Q4HP PRN 04/06/19 Aspirin [Adult Low Dose Aspirin EC] 81 mg PO DAILY 04/06/19 Calcium Carbonate/Vitamin D3 [Calcium 600-Vit D3 500 Softgel] 1 cap PO Q12 04/06/19 Carboxymethyl/Gly/Poly80/Pf [Refresh Optive Advanced Drops] 1 each OU ASDIR PRN 04/06/19 Cetirizine HCl [Zyrtec 10 mg Tablet] 1 tab PO DAILY 04/06/19 Clobetasol Propionate [Temovate 0.05% Cream 15 gm] 1 applic TP ASDIR PRN 04/06/19 Ergocalciferol (Vitamin D2) [Vitamin D2] 50,000 unit PO WE@1000 04/06/19 Famotidine [Pepcid 20 mg Tablet] 20 mg PO DAILY 04/06/19 Pravastatin Sodium [Pravachol] 10 mg PO DAILY 04/06/19 Triamcinolone Acetonide [Nasacort] 10.8 ml NS DAILY 04/06/19 Apixaban [Eliquis 5 mg Tablet] 5 mg PO BID #60 tablet 04/07/19 Diltiazem HCl [Cardizem 90 mg Tablet] 90 mg PO Q8 30 Days tablet 04/07/19 History of Present Illiness History of Present Illness: TAIWO DAVIDSON is a 74 year old female with past medical history significant for IHSS/hocm, COPD/asthma from secondhand smoke, HTN, HLD who presents to the ED with palpitations and respiratory distress. Found by ED to be in rapid tachyarrhythmia with rate over 160. Patient was started on IV diltiazem drip without much response and was plan to switch to esmolol drip and be sent to ICU. Heart rate converted to normal sinus rhythm after interventions patient was monitored closely in the ER thereafter. Dr. Otero in cardiology was consulted and he requested the patient be admitted for further monitoring and work-up. Patient has a history of IHSS, followed by outpatient cardiology closely. Per patient, she had an upper respiratory illness approximately 3 days prior to admission as well. She had a mildly productive cough of clear sputum, subjective fever/chills, and sore throat. She did not take any antibiotics for this but did take Mucinex and nasal spray. She believes she had a reaction to the Mucinex. Admitted for further work-up and treatment. Physical Exam Vital Signs: Temp Pulse Resp BP Pulse Ox 97.7 F 68 18 138/64 H 97 04/07/19 07:31 04/07/19 07:31 04/07/19 07:31 04/07/19 07:31 04/07/19 07:31 Intake & Output 04/06/19 04/07/19 04/08/19 06:59 06:59 06:59 Intake Total 540 960 Balance 540 960 Weight 53.07 kg 54 kg General appearance: PRESENT: no acute distress, cooperative Neck exam: ABSENT: JVD Respiratory exam: PRESENT: clear to auscultation geeta Cardiovascular exam: PRESENT: RRR, +S1, +S2. ABSENT: irregular rhythm, tachycardia Results Laboratory Results: WBC 6.4 10^3/uL (4.0-10.5) 04/07/19 04:33 RBC 4.59 10^6/uL (3.72-5.28) 04/07/19 04:33 Hgb 14.5 g/dL (12.0-15.5) 04/07/19 04:33 Hct 41.5 % (36.0-47.0) 04/07/19 04:33 MCV 90 fl (80-97) 04/07/19 04:33 MCH 31.6 pg (27.0-33.4) 04/07/19 04:33 MCHC 34.9 g/dL (32.0-36.0) 04/07/19 04:33 RDW 13.1 % (11.5-14.0) 04/07/19 04:33 Plt Count 147 10^3/uL (150-450) L 04/07/19 04:33 Lymph % (Auto) 26.8 % (13-45) 04/06/19 02:46 [place] % (Auto) 9.0 % (3-13) 04/06/19 02:46 Eos % (Auto) 1.7 % (0-6) 04/06/19 02:46 Baso % (Auto) 0.5 % (0-2) 04/06/19 02:46 Absolute Neuts (auto) 5.8 10^3/uL (1.7-8.2) 04/06/19 02:46 Absolute Lymphs (auto) 2.5 10^3/uL (0.5-4.7) 04/06/19 02:46 Absolute Monos (auto) 0.8 10^3/uL (0.1-1.4) 04/06/19 02:46 Absolute Eos (auto) 0.2 10^3/uL (0.0-0.6) 04/06/19 02:46 Absolute Basos (auto) 0.1 10^3/uL (0.0-0.2) 04/06/19 02:46 Seg Neutrophils % 62.0 % (42-78) 04/06/19 02:46 Sodium 136.4 mmol/L (137-145) L 04/07/19 04:33 Potassium 4.1 mmol/L (3.6-5.0) 04/07/19 04:33 Chloride 100 mmol/L (98-107) 04/07/19 04:33 Carbon Dioxide 30 mmol/L (22-30) 04/07/19 04:33 Anion Gap 6 (5-19) 04/07/19 04:33 BUN 15 mg/dL (7-20) 04/07/19 04:33 Creatinine 0.93 mg/dL (0.52-1.25) 04/07/19 04:33 Est GFR ( Amer) > 60 (>60) 04/07/19 04:33 Est GFR (MDRD) Non-Af 59 (>60) L 04/07/19 04:33 Glucose 94 mg/dL (75-110) 04/07/19 04:33 Calcium 9.4 mg/dL (8.4-10.2) 04/07/19 04:33 Magnesium 2.1 mg/dL (1.6-2.3) 04/06/19 02:46 Total Bilirubin 0.7 mg/dL (0.2-1.3) 04/06/19 02:46 Direct Bilirubin 0.3 mg/dL (0.0-0.4) 04/06/19 02:46 Neonat Total Bilirubin Not Reportable 04/06/19 02:46 Neonat Direct Bilirubin Not Reportable 04/06/19 02:46 Neonat Indirect Bili Not Reportable 04/06/19 02:46 AST 24 U/L (14-36) 04/06/19 02:46 ALT 15 U/L (<35) 04/06/19 02:46 Alkaline Phosphatase 106 U/L (38-126) 04/06/19 02:46 Creatine Kinase 75 U/L (30-135) 04/06/19 02:46 CK-MB (CK-2) 1.34 ng/mL (<4.55) 04/06/19 02:46 Troponin I 0.162 ng/mL 04/07/19 04:33 Total Protein 8.5 g/dL (6.3-8.2) H 04/06/19 02:46 Albumin 4.7 g/dL (3.5-5.0) 04/06/19 02:46 TSH 2.93 uIU/mL (0.47-4.68) 04/06/19 02:46 Free T4 0.99 ng/dL (0.78-2.19) 04/06/19 02:46 Free T3 pg/mL 3.55 pg/mL (2.77-5.27) 04/06/19 02:46 Urine Color COLORLESS 04/06/19 04:10 Urine Appearance CLEAR 04/06/19 04:10 Urine pH 8.0 (5.0-9.0) 04/06/19 04:10 Ur Specific Camp 1.005 04/06/19 04:10 Urine Protein 30 mg/dL (NEGATIVE) H 04/06/19 04:10 Urine Glucose (UA) NEGATIVE mg/dL (NEGATIVE) 04/06/19 04:10 Urine Ketones NEGATIVE mg/dL (NEGATIVE) 04/06/19 04:10 Urine Blood NEGATIVE (NEGATIVE) 04/06/19 04:10 Urine Nitrite (Reflex) NEGATIVE (NEGATIVE) 04/06/19 04:10 Urine Bilirubin NEGATIVE (NEGATIVE) 04/06/19 04:10 Urine Urobilinogen NEGATIVE mg/dL (<2.0) 04/06/19 04:10 Leukocyte Esterase Rfl SMALL (NEGATIVE) H 04/06/19 04:10 Urine RBC (Auto) 1 /HPF 04/06/19 04:10 Urine Bacteria (Auto) TRACE /HPF 04/06/19 04:10 Urine WBC (Reflex) 8 /HPF 04/06/19 04:10 Squamous Epi Cells Auto <1 /HPF 04/06/19 04:10 Urine Mucus (Auto) RARE /LPF 04/06/19 04:10 Urine Ascorbic Acid NEGATIVE (NEGATIVE) 04/06/19 04:10 04/06/19 04/06/19 04/06/19 02:46 05:58 12:21 CK-MB (CK-2) 1.34 Troponin I < 0.012 0.165 0.424 04/06/19 04/06/19 04/07/19 18:00 23:47 04:33 CK-MB (CK-2) Troponin I 0.300 0.213 0.162 Plan Time Spent: Less than 30 Minutes Stroke Is this a Stroke Patient?: No Acute Heart Failure - Is this a Heart Failure Patient?: No
--- NOTE | 2019-04-07 21:57 | Progress Note ---
Provider Note Provider Note: CARDIOLOGY PROGRESS NOTE by Dr. Chio Ibrahim on 04/07/2019. Subjective: The patient has not had any recurrence of her narrow complex tachycardia. The patient's troponin is trending down. There is no acute EKG changes. The patient denies any chest pain or discomfort. There is no shortness of breath. There is no PND. There is no ventricular arrhythmia seen on the monitor. There is no dizziness near syncope or syncope. There is no bleeding on Eliquis. Physical EXAMINATION: The patient is well-built and well-nourished. In no acute distress. Selected Entries 04/07/19 04/07/19 07:31 11:29 Temperature 97.7 F Pulse Rate 68 Respiratory 18 18 Rate Blood Pressure 138/64 H Blood Pressure 88 Mean BP Location Right Arm BP Position Supine O2 Sat by Pulse 97 97 Oximetry Oxygen Delivery Room Air Method HEAD: Is atraumatic normocephalic. EYES: Pupils are equal round regular reactive to light accommodation. Extraocular movements are normal there is no conjunctival pallor. There is no scleral icterus. EARS: Tympanic membranes are intact. External auditory canals are clear. NOSE: There is no deviated nasal septum. There is no inflammation nasal mucous membrane. MOUTH: Mucous membranes of the mouth are moist. Tongue is moist. There is no ulcers. THROAT: There is no redness of the oropharynx. There is no exudates. SKIN: There is no petechia or ecchymosis. There is no skin rashes or skin lesions. NECK: Supple. There is no JVD. Carotids are equal there is no bruit. There is no lymphadenopathy. There is no goiter. There is no accessory muscle respiration use. Trachea central. LUNGS: Is clear to auscultation percussion without any rhonchi rales or wheezing. HEART: S1-S2 is heard. There is no S3 gallop. There is an S4 gallop present. There is systolic murmur in the aortic area which increases with handgrip and Valsalva. This is clearly secondary to the patient's HOCM [I HSS]. There is no rub. Abdomen is soft. Nontender. There is no hepatosplenomegaly. Bowel sounds are well heard. There is no tender areas or masses. EXTREMITIES: Femorals well felt. Leg pulses well felt. There is no pedal edema. There is no DVT or cellulitis. There is no cyanosis or clubbing. There is no calf tenderness. YOUTH CORRECTIONS OFFICER: The patient is conscious awake alert oriented x3 with no focal focal deficits. PSYCHIATRIC: The patient judgment and insight are intact. Her affect is normal. Labs- All tests 24 hr 04/06/19 04/07/19 04/07/19 23:47 04:33 04:33 WBC 6.4 RBC 4.59 Hgb 14.5 Hct 41.5 MCV 90 MCH 31.6 MCHC 34.9 RDW 13.1 Plt Count 147 L Sodium 136.4 L Potassium 4.1 Chloride 100 Carbon Dioxide 30 Anion Gap 6 BUN 15 Creatinine 0.93 Est GFR ( Amer) > 60 Est GFR (MDRD) Non-Af 59 L Glucose 94 Calcium 9.4 Troponin I 0.213 04/07/19 04:33 WBC RBC Hgb Hct MCV MCH MCHC RDW Plt Count Sodium Potassium Chloride Carbon Dioxide Anion Gap BUN Creatinine Est GFR ( Amer) Est GFR (MDRD) Non-Af Glucose Calcium Troponin I 0.162 SINUS RHYTHM LVH WITH SECONDARY REPOLARIZATION ABNORMALITY . Q waves secondary to LVH BORDERLINE PROLONGED QT INTERVAL Impression/RECOMMENDATION: 1. Narrow complex tachycardia. Seems to be irregular. Most likely atrial flutter/fibrillation with rapid ventricle response. Resolved. No recurrence. Doubt that this is an SVT. Will increase the patient's Cardizem to 90 mg p.o. every 8 hours. We will start the patient also on Eliquis. Will get a 30-day event monitor as an outpatient. Will repeat echo as an outpatient. Will instruct the orthotic and prosthetic technician relation to the LVOT gradients at rest and after Valsalva. 2. Elevated troponin I secondary to type II myocardial infarction [supply demand mismatch: This is not a acute coronary event. The troponins are trending down. This is most likely secondary to the patient's rapid heart rate in a pat ient with IHSS. 3. IHSS [HOCM): The patient has resting and provocative gradient, but is been sending the severity of this obstruction clinically very well without major symptoms. Will get a patient's echo report from [facility] and if not done within the last 6 months we will repeat one. 4. Hypertension: Her blood hypertension is mild. Would recommend increasing the patient's Cardizem to 90 mg p.o. every 8 hours. 5. History of asthma. Patient is reviewed. Medical regimen and management plan discussed with the attending provider. Medical decision making is of moderate complexity. Will get a outpatient echocardiogram with Valsalva maneuver. We will also get a 30- day event monitor to see if the tachycardia is secondary to atrial fibrillation/flutter with rapid ventricular response versus narrow complex SVT. This is due to the history of SVT in this patient. We will follow the patient in my office. Cardiac status is stable to discharge patient. Discussed with the hospitalist attending provider. The patient is aware of the Cardizem increased to 90 mg p.o. every 8 hours and the addition of Eliquis.
[2019-04-07] MEDS ORDERED: DILTIAZEM HCL 90 MG TABLET PO SCH (22:00)
[2019-04-09] MEDS ORDERED: ERGOCALCIFEROL (VITAMIN D2) 50000 UNIT (1.25 MG) CAPSULE PO SCH (10:00)
== END 2019-04-07 12:17 | disposition home or self-care (01) | DRG 281 ==
LOC: ER 02:42 → EH 05:40 → 3W 07:53
PROVIDERS: ADMIT Anesthesiology; ATTEND Anesthesiology
DX: I47.1 Supraventricular tachycardia (principal); I21.A1 Myocardial infarction type 2; I42.9 Cardiomyopathy, unspecified; J44.9 Chronic obstructive pulmonary disease, unspecified; I10 Essential (primary) hypertension; J02.9 Acute pharyngitis, unspecified; Z77.22 Contact with and (suspected) exposure to environmental tobacco smoke (acute) (chronic); E78.5 Hyperlipidemia, unspecified; K21.9 Gastro-esophageal reflux disease without esophagitis; M19.042 Primary osteoarthritis, left hand; Z79.01 Long term (current) use of anticoagulants; Z79.82 Long term (current) use of aspirin; Z85.828 Personal history of other malignant neoplasm of skin; Z98.1 Arthrodesis status; Z88.6 Allergy status to analgesic agent; Z88.0 Allergy status to penicillin; Z88.8 Allergy status to other drugs, medicaments and biological substances; Z82.49 Family history of ischemic heart disease and other diseases of the circulatory system
CPT/HCPCS: 36415; 80048; 80053; 81001; 82550; 82553; 83735; 84439; 84443; 84481; 84484; 85025; 85027; 87086; 87088; 87186; 93005; 93010; 96365; 96366; 96372; 96375; 99291; 99292; J1650; J3490; J7030

== ENCOUNTER → 2019-05-19 | Outpatient (CLI) | payer MEDICARE ==
[2019-05-19 08:51] LABS: ABSOLUTE BASOPHILS # (AUTO) 0.1 10^3/uL (0.0-0.2); ABSOLUTE EOSINOPHILS # (AUTO) 0.2 10^3/uL (0.0-0.6); ABSOLUTE LYMPHOCYTES (AUTO) 1.9 10^3/uL (0.5-4.7); ABSOLUTE MONOCYTES (AUTO) 0.7 10^3/uL (0.1-1.4); ABSOLUTE NEUT (AUTO) 3.3 10^3/uL (1.7-8.2); BASOPHILS % (AUTO) 0.8 % (0-2); EOSINOPHILS % (AUTO) 3.3 % (0-6); HEMATOCRIT 42.9 % (36.0-47.0); HEMOGLOBIN 14.9 g/dL (12.0-15.5); LYMPHOCYTES % (AUTO) 30.1 % (13-45); MEAN CORPUSCULAR HGB CONC 34.7 g/dL (32.0-36.0); MEAN CORPUSCULAR VOLUME 89 fl (80-97); MONOCYTES % (AUTO) 11.9 % (3-13); PLATELET COUNT 154 10^3/uL (150-450); RED CELL DISTRIBUTION WIDTH 13.6 % (11.5-14.0); SEGMENTED NEUTROPHILS % (AUTO) 53.9 % (42-78); TOTAL CELLS COUNTED % (AUTO) 100 %; WHITE BLOOD COUNT 6.2 10^3/uL (4.0-10.5)
[2019-05-19 08:59] LABS: ANION GAP 8 (5-19); BLOOD UREA NITROGEN 17 mg/dL (7-20); CALCIUM 9.6 mg/dL (8.4-10.2); CARBON DIOXIDE 31 mmol/L (22-30); CHLORIDE 100 mmol/L (98-107); CHOLESTEROL 181.14 mg/dL (0-200); GLUCOSE 90 mg/dL (75-110); POTASSIUM 4.5 mmol/L (3.6-5.0); TRIGLYCERIDES 94 mg/dL (<150)
[2019-05-19 09:10] LABS: DIRECT LDL 105 mg/dL (<100)
== END ==
LOC: OD 07:10
PROVIDERS: ATTEND Family Medicine Geriatric Medicine
DX: E78.5 Hyperlipidemia, unspecified (principal); I12.9 Hypertensive chronic kidney disease with stage 1 through stage 4 chronic kidney disease, or unspecified chronic kidney disease; N18.3 Chronic kidney disease, stage 3 (moderate); Z79.899 Other long term (current) drug therapy
CPT/HCPCS: 36415; 80048; 80061; 84460; 85025

== ENCOUNTER → 2019-05-27 | Outpatient (CLI) | payer MEDICARE ==
--- NOTE | 2019-05-27 15:15 | RADIOLOGY REPORT (SQ) ---
EXAM DESCRIPTION: HAND RIGHT 3 VIEWS COMPLETED DATE/TIME: 05/27/2019 3:07 pm REASON FOR STUDY: RT HAND NODULE M06.341 RHEUMATOID NODULE, RIGHT HAND COMPARISON: None. EXAM PARAMETERS: NUMBER OF VIEWS: Three views. TECHNIQUE: AP, lateral and oblique radiographic images acquired of the right hand. LIMITATIONS: None. FINDINGS: MINERALIZATION: Normal. BONES: No acute fracture or dislocation. No worrisome bone lesions. No significant osteophytes. JOINTS: No erosions. No alvarez-articular osteopenia. No chondrocalcinosis. SOFT TISSUES: No swelling. No calcifications. OTHER: No other significant finding. IMPRESSION: NEGATIVE STUDY OF THE RIGHT HAND. TECHNICAL DOCUMENTATION: JOB ID: [id number] 2010 [employer]- All Rights Reserved Reading location - IP/workstation name: [email or web address]
== END ==
LOC: OD 14:43
PROVIDERS: ATTEND Family Medicine Geriatric Medicine
DX: M79.641 Pain in right hand (principal)

== ENCOUNTER → 2019-08-05 | Outpatient (CLI) | payer MEDICARE ==
[2019-08-05 08:25] LABS: CHOLESTEROL 155.95 mg/dL (0-200); TRIGLYCERIDES 90 mg/dL (<150)
[2019-08-05 08:36] LABS: DIRECT LDL 81 mg/dL (<100)
== END ==
LOC: OD 07:11
PROVIDERS: ATTEND Family Medicine Geriatric Medicine
DX: E78.5 Hyperlipidemia, unspecified (principal); Z79.899 Other long term (current) drug therapy
CPT/HCPCS: 36415; 80061; 84460

== ENCOUNTER → 2019-11-03 | Outpatient (CLI) | payer MEDICARE ==
[2019-11-03 08:30] LABS: ABSOLUTE EOSINOPHILS # (AUTO) 0.3 10^3/uL (0.0-0.6); ABSOLUTE LYMPHOCYTES (AUTO) 1.5 10^3/uL (0.5-4.7); ABSOLUTE MONOCYTES (AUTO) 0.8 10^3/uL (0.1-1.4); ABSOLUTE NEUT (AUTO) 3.9 10^3/uL (1.7-8.2); BASOPHILS % (AUTO) 0.8 % (0-2); EOSINOPHILS % (AUTO) 3.9 % (0-6); HEMATOCRIT 43.2 % (36.0-47.0); HEMOGLOBIN 14.9 g/dL (12.0-15.5); MEAN CORPUSCULAR HEMOGLOBIN 31.2 pg (27.0-33.4); MEAN CORPUSCULAR HGB CONC 34.5 g/dL (32.0-36.0); MEAN CORPUSCULAR VOLUME 91 fl (80-97); MONOCYTES % (AUTO) 12.1 % (3-13); PLATELET COUNT 158 10^3/uL (150-450); RED BLOOD COUNT 4.78 10^6/uL (3.72-5.28); RED CELL DISTRIBUTION WIDTH 13.6 % (11.5-14.0); SEGMENTED NEUTROPHILS % (AUTO) 60.2 % (42-78); TOTAL CELLS COUNTED % (AUTO) 100 %; WHITE BLOOD COUNT 6.4 10^3/uL (4.0-10.5)
[2019-11-03 09:13] LABS: ANION GAP 9 (5-19); BLOOD UREA NITROGEN 14 mg/dL (7-20); CALCIUM 9.6 mg/dL (8.4-10.2); CARBON DIOXIDE 29 mmol/L (22-30); CHLORIDE 102 mmol/L (98-107); GLUCOSE 97 mg/dL (75-110); POTASSIUM 4.2 mmol/L (3.6-5.0)
== END ==
LOC: OD 07:13
PROVIDERS: ATTEND Family Medicine Geriatric Medicine
DX: I10 Essential (primary) hypertension (principal); E78.5 Hyperlipidemia, unspecified; Z79.899 Other long term (current) drug therapy
CPT/HCPCS: 36415; 80048; 85025

== ENCOUNTER 2020-01-18 18:44 | Inpatient (IN) | payer MEDICARE ==
[2020-01-18] MEDS ORDERED: DILTIAZEM HCL INJ 25 MG/5 ML VIAL ONE ×2 (18:58→19:16)
[2020-01-18] MEDS ORDERED: DILTIAZEM HCL/D5W 125 MG/125 ML RTUINJ IV ONE (19:03)
[2020-01-18] MEDS ORDERED: DILTIAZEM HCL INJ 25 MG/5 ML VIAL IV ONE ×3 (19:04→20:33)
[2020-01-18] MEDS ORDERED: NORMAL SALINE 1000 ML 1,000 ML IV PRN (19:15)
[2020-01-18 19:18] LABS: ABSOLUTE BASOPHILS # (AUTO) 0.1 10^3/uL (0.0-0.2); ABSOLUTE EOSINOPHILS # (AUTO) 0.1 10^3/uL (0.0-0.6); ABSOLUTE LYMPHOCYTES (AUTO) 1.7 10^3/uL (0.5-4.7); ABSOLUTE MONOCYTES (AUTO) 0.9 10^3/uL (0.1-1.4); ABSOLUTE NEUT (AUTO) 5.4 10^3/uL (1.7-8.2); BASOPHILS % (AUTO) 0.8 % (0-2); EOSINOPHILS % (AUTO) 0.8 % (0-6); HEMATOCRIT 42.9 % (36.0-47.0); HEMOGLOBIN 15.1 g/dL (12.0-15.5); LYMPHOCYTES % (AUTO) 21.3 % (13-45); MEAN CORPUSCULAR HEMOGLOBIN 31.6 pg (27.0-33.4); MEAN CORPUSCULAR HGB CONC 35.1 g/dL (32.0-36.0); MEAN CORPUSCULAR VOLUME 90 fl (80-97); MONOCYTES % (AUTO) 10.5 % (3-13); PLATELET COUNT 183 10^3/uL (150-450); RED BLOOD COUNT 4.77 10^6/uL (3.72-5.28); RED CELL DISTRIBUTION WIDTH 13.3 % (11.5-14.0); SEGMENTED NEUTROPHILS % (AUTO) 66.6 % (42-78); TOTAL CELLS COUNTED % (AUTO) 100 %; WHITE BLOOD COUNT 8.2 10^3/uL (4.0-10.5)
[2020-01-18 19:40] LABS: PROTHROMBIN TIME 13.4 SEC (11.4-15.4)
[2020-01-18 19:43] LABS: ALBUMIN 4.9 g/dL (3.5-5.0); ALKALINE PHOSPHATASE 119 U/L (38-126); ANION GAP 12 (5-19); ASPARTATE AMINO TRANSFERASE 27 U/L (14-36); BILIRUBIN,DIRECT 0.1 mg/dL (0.0-0.4); BLOOD UREA NITROGEN 18 mg/dL (7-20); CALCIUM 9.6 mg/dL (8.4-10.2); CARBON DIOXIDE 27 mmol/L (22-30); CHLORIDE 95 mmol/L (98-107); CREATINE KINASE 59 U/L (30-135); GLUCOSE 123 mg/dL (75-110); POTASSIUM 4.5 mmol/L (3.6-5.0); TOTAL PROTEIN 8.4 g/dL (6.3-8.2)
[2020-01-18 19:53] LABS: CREATINE KINASE MB 1.11 ng/mL (<4.55); TROPONIN I 0.02 ng/mL
--- NOTE | 2020-01-18 20:15 | ER Document Report ---
Entered by CHAR VARGAS SCRIBE 01/18/202010 Acting as scribe for:MIROSLAVA DIAZ DO ED General - General Chief Complaint: Palpitations Stated Complaint: IRREGULAR HEARTRATE Time Seen by Provider: 01/18/20 19:21 Primary Care Provider: VINCENZO RIOS MD [Primary Care Provider] - Follow up as needed Information source: Patient Notes: This 74-year-old female patient with atrial fibrillation on Eliquis presents to the emergency department today with complaints of heart racing sensation that began at 530 this afternoon. Patient taken extra dose of Cardizem with no change so she came in for evaluation. Patient denies any sick contacts, concerns for COVID, fevers, or vomiting. TRAVEL OUTSIDE OF THE [place] IN LAST 30 DAYS: No - Related Data Allergies/Adverse Reactions: codeine [Codeine] Allergy (Unknown, Verified 06/18/16 19:08) morphine [Morphine] Allergy (Unknown, Verified 06/18/16 19:08) Penicillins Allergy (Unknown, Verified 06/18/16 19:08) Rash captopril Allergy (Verified 06/19/16 07:11) Angioneurotic Edema nitroglycerin Adverse Reaction (Verified 06/22/16 13:02) Past Medical History - General Information source: Patient - Social History Smoking Status: Never Smoker Cigarette use (# per day): No Chew tobacco use (# tins/day): No Frequency of alcohol use: None Drug Abuse: None Lives with: Family Family History: Reviewed & Not Pertinent, CAD, Other - Hypertrophic cardiomyopathy Patient has homicidal ideation: No - Past Medical History Cardiac Medical History: Reports: Hx Atrial Fibrillation, Hx Hypercholesterolemia, Hx Hypertension, Hx Heart Murmur Pulmonary Medical History: Reports: Hx Asthma, Hx COPD - Due to secondhand smoke, Hx Pneumonia - 2013 Malignancy Medical History: Reports: Hx Skin Cancer - Status post surgical removal without recurrence per patient GI Medical History: Reports: Hx Gastroesophageal Reflux Disease Musculoskeletal Medical History: Reports Hx Arthritis - L.hand Past Surgical History: Reports: Hx Hysterectomy, Hx Orthopedic Surgery - fusion T12L2, Other - 3apr L pterigium - Immunizations Hx Diphtheria, Pertussis, Tetanus Vaccination: Yes Review of Systems - Review of Systems Constitutional: denies: Fever EENT: No symptoms reported Cardiovascular: See HPI, Palpitations, Heart racing Respiratory: No symptoms reported Gastrointestinal: denies: Vomiting Genitourinary: No symptoms reported Female Genitourinary: No symptoms reported Musculoskeletal: No symptoms reported Skin: No symptoms reported Hematologic/Lymphatic: No symptoms reported Neurological/Psychological: No symptoms reported -: Yes All other systems reviewed and negative Physical Exam - Vital signs Vitals: Pulse Ox 97 01/18/20 18:55 - Notes Notes: Physical Exam: General: Alert, appears well. HEENT: Normocephalic. Atraumatic. PERRL. Extraocular movements intact. Oropharynx clear. Neck: Supple. Non-tender. Respiratory: No respiratory distress. Bibasilar rales. Cardiovascular: Irregularly irregular, tachycardic. Abdominal: Normal Inspection. Non-tender. No distension. Normal Bowel Sounds. Back: No gross abnormalities. Extremities: Moves all four extremities. Upper extremities: Normal inspection. Normal ROM. Lower extremities: 2+ edema bilaterally. Normal ROM. Neurological: Normal cognition. AAOx4. Normal speech. Psychological: Normal affect. Normal Mood. Skin: Warm. Dry. Normal color. Course - Re-evaluation Re-evalutation: 01/18/20 22:11 MDM 74 year old female arrives with complaints of her heart racing and h/o atrial fibrillation. Takes calcium channel stephanie for rate control and an eloquis taker. 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 No known CAD. She has slowed margincally with cardizem here. She is currently on cardizem gtt. I have discussed with the hospitalist Dr. Dahl and he has graciously agreed to see and evaluate for admission. - Vital Signs Vital signs: Temp Pulse Resp BP Pulse Ox 16 132/66 H 94 01/18/20 21:45 01/18/20 21:45 01/18/20 21:45 - Laboratory Result Diagrams: 01/18/20 19:00 01/18/20 19:00 Laboratory results interpreted by me: 01/18/20 01/18/20 19:00 19:00 Sodium 133.5 L Chloride 95 L Glucose 123 H NT-Pro-B Natriuret Pep 3490 H Total Protein 8.4 H Critical Care Note - Critical Care Note Total time excluding time spent on procedures (mins): 30 Discharge - Discharge Clinical Impression: Atrial fibrillation with RVR HTN (hypertension) Qualifiers: Hypertension type: unspecified Qualified Code(s): I10 - Essential (primary) hypertension CHF (congestive heart failure) Qualifiers: Heart failure type: other Qualified Code(s): I50.9 - Heart failure, unspecified Condition: Stable Disposition: ADMITTED OBSERVATION Admitting Provider: [facility] Admitted: [facility] Referrals: VINCENZO RIOS MD [Primary Care Provider] - Follow up as needed I personally performed the services described in the documentation, reviewed and edited the documentation which was dictated to the scribe in my presence, and it accurately records my words and actions.
[2020-01-18] MEDS ORDERED: FUROSEMIDE INJ/PF 20 MG/2 ML SDV IV ONE (20:41)
--- NOTE | 2020-01-18 21:10 | RADIOLOGY REPORT (SQ) ---
XR CHEST 1 VIEW HISTORY: Hypertension. COMPARISON: 09/06/2017 FINDINGS: The heart size is enlarged with mild central pulmonary vascular congestion. No consolidation, pleural effusion, or pneumothorax is seen. Fixation hardware in the lower thoracic spine. IMPRESSION: Mild pulmonary edema pattern, without pleural effusions or focal consolidation.
[2020-01-18] MEDS ORDERED: DIGOXIN INJ 0.5 MG/2 ML AMPULE IV ONE (21:44)
[2020-01-18] MEDS: METOPROLOL TARTRATE PF/INJ 5 MG/5 ML SDV IV ONE ×2 (22:35→23:35)
[2020-01-18] MEDS ORDERED: ACETAMINOPHEN 325 MG TABLET PO ONE (22:44)
[2020-01-18] MEDS ORDERED: ACETAMINOPHEN 325 MG TABLET ONE (22:46)
[2020-01-18] MEDS ORDERED: ACETAMINOPHEN 325 MG TABLET PO PRN (22:47)
--- NOTE | 2020-01-18 23:20 | PDOC H&P ---
History of Present Illness Admission Date/PCP: 01/18/20 22:46 VINCENZO RIOS MD Patient complains of: Palpitation, shortness of breath History of Present Illness: TAIWO DAVIDSON is a 74 year old female with a history of paroxysmal A. fib, COPD, hypertension, hyperlipidemia and hypertrophic cardiomyopathy who presents today to the ER reporting that she feels like her heart is racing since this morning. She also states that she has been feeling lightheaded and short of breath with exertion. Right after the incident she called her server engineer and she was told to take an extra dose of Cardizem at home with carotid massage but her symptoms did not improve and she continued to have palpitation. She still has during the incident she checked her pulse with her pulse oximetry machine at home and her heart rate was in the 140s and decided to come to the ER. She states that she has not missed any of her medications. She denies any fever, cough, chest pain, nausea, vomiting, diarrhea. She also denies any heat intolerance, weakness of extremities, change in her vision or speech. She has been started on diltiazem drip at the ER since presentation and heart rate has been ranging in the upper 120s and low 130s. Discussed patient's presentation with her server engineer(Dr. Ibrahim) and admitted the patient for rate control. Past Medical History Cardiac Medical History: Reports: Atrial Fibrillation, Hyperlipidema, Hypertension, Heart Murmur Denies: Coronary Artery Disease, Myocardial Infarction Pulmonary Medical History: Reports: Asthma, Chronic Obstructive Pulmonary Disease (COPD) - Due to secondhand smoke, Pneumonia - 2012 Denies: Bronchitis Neurological Medical History: Denies: Seizures Malignancy Medical History: Reports: Skin Cancer - Status post surgical removal without recurrence per patient GI Medical History: Reports: Gastroesophageal Reflux Disease Musculoskeltal Medical History: Reports: Arthritis - L.hand Hematology: Denies: Anemia Past Surgical History Past Surgical History: Reports: Hysterectomy, Orthopedic Surgery - fusion T12L2, Other - 3apr L pterigium Denies: Pacemaker Social History Information Source: Patient Lives with: Family Smoking Status: Never Smoker Electronic Cigarette use?: No Frequency of Alcohol Use: None Hx Recreational Drug Use: No Drugs: None Hx Prescription Drug Abuse: No - Advance Directive Resuscitation Status: Full Code Family History Family History: Reviewed & Not Pertinent, CAD, Other - Hypertrophic cardiomyopathy Parental Family History Reviewed: Yes Children Family History Reviewed: Yes Sibling(s) Family History Reviewed.: Yes Medication/Allergy Home Medications: Acetaminophen [Tylenol] 500 mg PO Q6HP PRN 04/06/19 Aspirin [Adult Low Dose Aspirin EC] 81 mg PO DAILY 04/06/19 Calcium Carbonate/Vitamin D3 [Calcium 600-Vit D3 500 Softgel] 1 cap PO Q12 04/06/19 Carboxymethyl/Gly/Poly80/Pf [Refresh Optive Advanced Drops] 1 each OU ASDIR PRN 04/06/19 Cetirizine HCl [Zyrtec 10 mg Tablet] 1 tab PO DAILY 04/06/19 Ergocalciferol (Vitamin D2) [Vitamin D2] 50,000 unit PO WE@1000 04/06/19 Famotidine [Pepcid 20 mg Tablet] 20 mg PO DAILY 04/06/19 Pravastatin Sodium [Pravachol] 10 mg PO DAILY 04/06/19 Apixaban [Eliquis 5 mg Tablet] 5 mg PO BID #60 tablet 04/07/19 Diltiazem HCl [Diltiazem 12Hr ER] 90 mg PO Q8 01/19/20 Allergies/Adverse Reactions: codeine [Codeine] Allergy (Unknown, Verified 06/18/16 19:08) morphine [Morphine] Allergy (Unknown, Verified 06/18/16 19:08) Penicillins Allergy (Unknown, Verified 06/18/16 19:08) Rash captopril Allergy (Verified 06/19/16 07:11) Angioneurotic Edema nitroglycerin Adverse Reaction (Verified 06/22/16 13:02) Review of Systems Constitutional: ABSENT: chills, fever(s), headache(s), weight gain, weight loss Eyes: ABSENT: visual disturbances Ears: ABSENT: hearing changes Nose, Mouth, and Throat: ABSENT: as per HPI, headache(s), mouth pain, sore throat, vertigo, other Cardiovascular: PRESENT: as per HPI Respiratory: PRESENT: as per HPI Gastrointestinal: ABSENT: abdominal pain, constipation, diarrhea, hematemesis, hematochezia, nausea, vomiting Genitourinary: ABSENT: dysuria, hematuria Musculoskeletal: ABSENT: joint swelling Integumentary: ABSENT: rash, wounds Neurological: PRESENT: abnormal gait. ABSENT: abnormal speech, confusion, focal weakness, syncope Psychiatric: ABSENT: anxiety, depression, homidical ideation, suicidal ideation Endocrine: ABSENT: cold intolerance, heat intolerance, polydipsia, polyuria Hematologic/Lymphatic: ABSENT: easy bleeding, easy bruising Physical Exam Vital Signs: Temp Pulse Resp BP Pulse Ox 16 132/66 H 94 01/18/20 21:45 01/18/20 21:45 01/18/20 21:45 Intake & Output 01/17/20 01/18/20 01/19/20 06:59 06:59 06:59 Intake Total 1018 Balance 1018 Weight 53.07 kg Additional comments: GENERAL APPEARANCE: Alert and oriented x3, no acute distress HEENT: Normocephalic and atraumatic. No scleral icterus. Dry oral mucosa NECK: Supple. No lymphadenopathy or tenderness. No carotid bruit. No JVD CHEST: Symmetric. Nontender to palpation. LUNGS: Clear with good air entry bilaterally. No wheezing or crackles HEART: Irregularly irregular rhythm, tachycardic with a rate in the 130s, has ejection systolic murmur at the left fourth intercostal space, and there is a systolic murmur heard at the apex radiating to axilla ABDOMEN: Flat, soft, active bowel sounds, no direct or rebound tenderness. No organomegaly detected. No CVA tenderness EXTREMITIES: No cyanosis, clubbing, or edema. MUSCULOSKELETAL: No deformity, atrophy or swelling noted PSYCHIATRIC: Recent and remote memory is intact. Appropriate mood and affect. SKIN: Warm, dry, and well perfused. No lesions or rashes are noted. NEUROLOGIC: No focal sensory or motor deficits are noted. Results Laboratory Results: 01/18/20 19:00 01/18/20 19:00 01/18/20 01/18/20 01/18/20 19:00 19:00 19:00 WBC 8.2 RBC 4.77 Hgb 15.1 Hct 42.9 MCV 90 MCH 31.6 MCHC 35.1 RDW 13.3 Plt Count 183 Seg Neutrophils % 66.6 Sodium 133.5 L Potassium 4.5 Chloride 95 L Carbon Dioxide 27 Anion Gap 12 BUN 18 Creatinine 0.80 Est GFR ( Amer) > 60 Glucose 123 H Calcium 9.6 Magnesium 2.3 Total Bilirubin 1.0 AST 27 Alkaline Phosphatase 119 Total Protein 8.4 H Albumin 4.9 TSH 01/18/20 19:00 WBC RBC Hgb Hct MCV MCH MCHC RDW Plt Count Seg Neutrophils % Sodium Potassium Chloride Carbon Dioxide Anion Gap BUN Creatinine Est GFR ( Amer) Glucose Calcium Magnesium Total Bilirubin AST Alkaline Phosphatase Total Protein Albumin TSH 1.76 01/18/20 01/18/20 01/18/20 19:00 19:00 19:00 Creatine Kinase 59 CK-MB (CK-2) 1.11 Troponin I 0.020 NT-Pro-B Natriuret Pep 3490 H Impressions: Chest X-Ray 01/18/20 19:27 IMPRESSION: Mild pulmonary edema pattern, without pleural effusions or focal consolidation. Assessment and Plan - Diagnosis (1) Atrial fibrillation with RVR Is this a current diagnosis for this admission?: Yes Plan: Patient presents with palpitation, shortness of breath EKG on presentation showed A. fib with RVR with a heart rate in the 140s Patient was placed on diltiazem drip with minor improvement in her heart rate Gave a one-time dose of metoprolol 5 mg IV at the ED which brought her heart rate to 60 Currently on diltiazem drip Cardiac enzymes negative TSH within the normal limit Continue telemetry monitoring Continue anticoagulation Cardiology on board (2) HTN (hypertension) Qualifiers: Hypertension type: unspecified Qualified Code(s): I10 - Essential (primary) hypertension Is this a current diagnosis for this admission?: Yes Plan: Currently blood pressure is well controlled Resume home medications (3) COPD (chronic obstructive pulmonary disease) Is this a current diagnosis for this admission?: Yes Plan: Currently not in acute exacerbation Continue albuterol inhaler as needed (4) HLD (hyperlipidemia) Is this a current diagnosis for this admission?: Yes Plan: Continue home medication (5) Obstructive hypertrophic cardiomyopathy Is this a current diagnosis for this admission?: Yes Plan: Has a systolic high flow murmur at the left fourth intercostal space Currently patient is being followed by outside cardiology Avoid nitrates while inpatient - Time Time Spent with patient: 35 or more minutes Total Critical Time (Minutes): 50 Medications reviewed and adjusted accordingly: Yes Anticipated Discharge Disposition: Home, Self Care Anticipated Discharge Timeframe: within 48 hours - Inpatient Certification Based on my medical assessment, after consideration of the patient's comorbidities, presenting symptoms, or acuity I expect that the services needed warrant INPATIENT care.: Yes I certify that my determination is in accordance with my understanding of Medicare's requirements for reasonable and necessary INPATIENT services [42 CFR 412.3e].: Yes Medical Necessity: Significant Comorbidiites Make Outpatient Treatment Too Risky, Need For Continuous Telemetry Monitoring, Risk of Complication if Not Cared For in Hospital Post Hospital Care: D/C or Transfer Summary
[2020-01-18] MEDS ORDERED: APIXABAN 5 MG TABLET PO SCH (23:45)
[2020-01-19] MEDS: FAMOTIDINE 20 MG TABLET PO SCH ×3 (01:00→21:21)
[2020-01-19] MEDS: DILTIAZEM HCL/D5W 125 MG/125 ML RTUINJ IV PRN (01:00)
--- NOTE | 2020-01-19 05:26 | EKG REPORT ---
SEVERITY:- ABNORMAL ECG - A-FLUTTER W/ PREDOM 3:1 AV BLOCK, A-RATE 227 LEFT VENTRICULAR HYPERTROPHY ANTERIOR INFARCT, AGE INDETERMINATE BORDERLINE PROLONGED QT INTERVAL : Confirmed by: Mark Anthony Weeks MD 19-Jan-2020 05:26:01
--- NOTE | 2020-01-19 05:28 | EKG REPORT ---
SEVERITY:- ABNORMAL ECG - A-FLUTTER W/ PREDOM 2:1 AV BLOCK, A-RATE 254 LVH WITH SECONDARY REPOLARIZATION ABNORMALITY ANTERIOR INFARCT, OLD PROLONGED QT INTERVAL : Confirmed by: Mark Anthony Weeks MD 19-Jan-2020 05:27:32
--- NOTE | 2020-01-19 05:30 | EKG REPORT ---
SEVERITY:- ABNORMAL ECG - A-FLUTTER W/ PREDOM 2:1 AV BLOCK, A-RATE 258 LEFT AXIS DEVIATION LVH WITH SECONDARY REPOLARIZATION ABNORMALITY ANTERIOR INFARCT, AGE INDETERMINATE BORDERLINE PROLONGED QT INTERVAL : Confirmed by: Mark Anthony Weeks MD 19-Jan-2020 05:29:24
--- NOTE | 2020-01-19 05:30 | EKG REPORT ---
SEVERITY:- ABNORMAL ECG - ATRIAL FIBRILLATION LEFT AXIS DEVIATION LVH WITH SECONDARY REPOLARIZATION ABNORMALITY ANTERIOR INFARCT, AGE INDETERMINATE LATERAL LEADS ARE ALSO INVOLVED PROLONGED QT INTERVAL : Confirmed by: Mark Anthony Weeks MD 19-Jan-2020 05:29:39
[2020-01-19 06:57] LABS: ANION GAP 13 (5-19); BLOOD UREA NITROGEN 12 mg/dL (7-20); CALCIUM 9.6 mg/dL (8.4-10.2); CARBON DIOXIDE 24 mmol/L (22-30); CHLORIDE 97 mmol/L (98-107); GLUCOSE 112 mg/dL (75-110); POTASSIUM 3.8 mmol/L (3.6-5.0)
[2020-01-19] MEDS: ASPIRIN 81 MG TABLET, CHEWABLE PO SCH (09:29)
[2020-01-19] MEDS: APIXABAN 5 MG TABLET PO SCH ×2 (09:30→17:28)
[2020-01-19] MEDS ORDERED: METOPROLOL TARTRATE PF/INJ 5 MG/5 ML SDV IV ONE ×2 (09:58→10:30)
[2020-01-19] MEDS ORDERED: METOPROLOL TARTRATE 25 MG TABLET PO SCH (10:00)
--- NOTE | 2020-01-19 16:16 | PDOC CONSULTATION ---
Consultation-Blank Consultation: CARDIOLOGY CONSULTATION by Dr. Chio Ibrahim on 01/19/2020. Patient seen at 2 PM. 60 minutes spent as patient with more than 50% time spent in direct patient care. CONSULT REQUESTING PHYSICIAN: [facility]. REASON FOR CONSULTATION: Atrial flutter with rapid ventricular response the patient with IHSS and abnormal troponin I levels HISTORY OF PRESENT ILLNESS: Patient is a 75-year-old female with known history of IHSS with significant resting and provocative LVOT gradients, mild hypertension, and history of asthma and history of proximal atrial fibrillation states that she had sudden onset of palpitations and dizziness and severe fatigue. She had also shortness of breath especially when she walked around. There was no chest pain discomfort. Although she felt dizzy there was no near- syncope or syncope. The patient was on Cardizem by mouth and also Eliquis as an outpatient. The patient did take an extra dose of Cardizem 90 mg with no change in the heart rate. At present the patient's heart rate is much improved. Although she denies any chest pain discomfort troponins have been elevated. She in October 2019 had an echocardiogram in [facility] by Dr. Olsen. This showed a normal left ventricle ejection fraction, with left ventricle diastolic dysfunction elevated elevated left atrial pressures, severely dilated left atrium, and evidence of IHSS with a resting gradient of 96 mmHg and a provocative gradient of 118 mmHg. She also had severe mitral regurgitation. I discussed with Dr. Olsen she probably be a candidate for atrial flutter ablation, and she probably needs something done to her mitral regurgitation. The patient has no bleeding on Eliquis. There is no TIA CVA symptoms. She has no anginal symptoms. Past Medical History Cardiac Medical History: Reports: Hyperlipidema, Hypertension, Heart Murmur, Other - IHSS Denies: Coronary Artery Disease, Myocardial Infarction Pulmonary Medical History: Reports: Asthma, Chronic Obstructive Pulmonary Disease (COPD) - Due to secondhand smoke, Pneumonia - 2012 Denies: Bronchitis EENT Medical History: Reports: None Neurological Medical History: Denies: Seizures Malignancy Medical History: Reports: Skin Cancer - Status post surgical removal without recurrence per patient GI Medical History: Reports: Gastroesophageal Reflux Disease Musculoskeltal Medical History: Reports: Arthritis - L.hand Psychiatric Medical History: Reports: None Traumatic Medical History: Reports: None Hematology: Denies: Anemia Past Surgical History Past Surgical History: Reports: Hysterectomy, Orthopedic Surgery - fusion T12L2, Other - 3apr L pterigium Denies: Pacemaker Social History Information Source: Patient Lives with: Family Smoking Status: Never Smoker Frequency of Alcohol Use: None Hx Recreational Drug Use: No Drugs: None Hx Prescription Drug Abuse: No - Advance Directive Resuscitation Status: Full Code Surrogate healthcare decision maker:: Family History Family History: Reviewed & Not Pertinent, CAD, Other -there is no family history of hypertrophic cardiomyopathy Parental Family History Reviewed: Yes Children Family History Reviewed: Yes Sibling(s) Family History Reviewed.: Yes Medication/Allergy Allergies/Adverse Reactions: codeine [Codeine] Allergy (Unknown, Verified 06/18/16 19:08) morphine [Morphine] Allergy (Unknown, Verified 06/18/16 19:08) Penicillins Allergy (Unknown, Verified 06/18/16 19:08) Rash captopril Allergy (Verified 06/19/16 07:11) Angioneurotic Edema nitroglycerin Adverse Reaction (Verified 06/22/16 13:02) Review of Systems : CONSTITUTIONAL: The patient denies any fever chills or rigors, denies genera lized weakness but does have some fatigue. HEAD: Denies headaches or head injury. EYES: There is no amblyopia diplopia, and no amaurosis fugax. EARS: No hearing loss, no tinnitus or vertigo. NOSE: No history of hayfever, no nosebleeds, and no nasal polyps. MOUTH: No altered taste sensation, no ulcers in the mouth and no bleeding from the gums. THROAT: No odynophagia or dysphagia, no recurrent sore throats. SKIN: There is no pruritus no no elevation discoloration of the skin, and no eczema. LUNGS: She has a history of asthma which is mild and has not had any episodes in a long time. She hasa history of COPD due to exposure to secondhand smoke.no symptoms of upper or lower respiratory tract infection or acute exacerbation of COPD or acute asthmatic attack. No history of sleep apnea. No history of pulmonary embolism. No history of sleep apnea. No history of pulmonary embolism. No pleuritic chest pain no hemoptysis. No wheezing or cough or sputum production. HEART: He has no history of CAD, [place] or anginal symptoms, and no history of hypertension or hyperlipidemia. The patient has no chest pain. She had an episode of rapid palpitations due to atrial flutter. She felt lightheaded, but no syncope. With rapid palpitations she also had shortness of breath and dyspnea on exertion. She has a history of IHSS, but the patient is relatively asymptomatic from it. There is no history of congenital heart disease or rheumatic heart disease. GI: No history of fatty food intolerance no abdominal pain, no cirrhosis. No GI bleed. No altered bowel movements. ENDOCRINE: No history of diabetes mellitus or thyroid disease. No history of polydipsia polyuria, no history of heat or cold intolerance. MUSCULOSKELETAL: Has a history of arthritis, but no disabling symptoms, and no history of collagen vascular disease. RENAL: No symptoms of enlarged prostate. No history of chronic kidney disease. No symptoms of UTI. No history of hematuria pyuria or dysuria. History of solid mass in the right cortex of the right kidney diagnosed by CAT scan in 10/26. METABOLIC: History of morbid obesity present and history of hyperlipidemia. No history of gout. MUSHROOM CUTTER: No history of TIA or CVA. No history of migraines or seizures. No history of gait imbalance. PSYCHIATRIC: No history of anxiety or depression. No history of suicidal ideation or homicidal ideation. VASCULAR: No history of calf or buttock claudication, no history of DVT. HEMATOLOGICAL: No history of bleeding diathesis or or clotting disorders, and no history of anemia. PHYSICAL EXAMINATION: The patient is well-built and well-nourished. In no acute distress. Selected Entries 01/19/20 12:11 Temperature 98.7 F Temperature Oral Source Pulse Rate 108 H Respiratory 18 Rate Blood Pressure 126/61 H Blood Pressure 82 Mean BP Location Right Arm BP Position Sitting O2 Sat by Pulse 95 Oximetry Oxygen Delivery Room Air Method HEAD: Is atraumatic normocephalic. EYES: Pupils are equal round regular reactive to light accommodation. Extraocular movements are normal there is no conjunctival pallor. There is no scleral icterus. EARS: Tympanic membranes are intact. External auditory canals are clear. NOSE: There is no deviated nasal septum. There is no inflammation nasal mucous membrane. MOUTH: Mucous membranes of the mouth are moist. Tongue is moist. There is no ulcers. THROAT: There is no redness of the oropharynx. There is no exudates. SKIN: There is no petechia or ecchymosis. There is no skin rashes or skin lesions. NECK: Supple. There is no JVD. Carotids are equal there is no bruit. There is no lymphadenopathy. There is no goiter. There is no accessory muscle respiration use. Trachea central. LUNGS: Is clear to auscultation percussion without any rhonchi rales or wheezing. HEART: S1-S2 is heard. S1 is of variable intensity there is no S3 gallop. There is no S4 gallop present. There is systolic murmur in the aortic area which increases with handgrip and Valsalva. There is systolic murmur of mitral regurgitation present. This is clearly secondary to the patient's HOCM [I HSS]. There is no rub. Abdomen is soft. Nontender. There is no hepatosplenomegaly. Bowel sounds are well heard. There is no tender areas or masses. EXTREMITIES: Femorals well felt. Leg pulses well felt. There is no pedal edema. There is no DVT or cellulitis. There is no cyanosis or clubbing. There is no calf tenderness. MUSHROOM CUTTER: The patient is conscious awake alert oriented x3 with no focal focal deficits. PSYCHIATRIC: The patient judgment and insight are intact. Her affect is normal. EKG# #1:ATRIAL FIBRILLATION [LAD] . LEFT AXIS DEVIATION [LVHREP] . LVH WITH SECONDARY REPOLARIZATION ABNORMALITY [AMIQ] . ANTERIOR INFARCT, AGE INDETERMINATE [LLINV] . LATERAL LEADS ARE ALSO INVOLVED [LQT] . PROLONGED QT INTERVAL EKG #2: A-FLUTTER W/ PREDOM 2:1 AV BLOCK, A-RATE 258 [LAD] . LEFT AXIS DEVIATION [LVHREP] . LVH WITH SECONDARY REPOLARIZATION ABNORMALITY [AMIQ] . ANTERIOR INFARCT, AGE INDETERMINATE EKG #3: . A-FLUTTER W/ PREDOM 3:1 AV BLOCK, A-RATE 227 [LVH] . LEFT VENTRICULAR HYPERTROPHY [AMI54] . ANTERIOR INFARCT, AGE INDETERMINATE. Borderline prolonged QT interval Today's EKG: [EKG #4]:ATRIAL FLUTTER, A-RATE 223 [LVH] . LEFT VENTRICULAR HYPERTROPHY [AMIQ] . ANTERIOR INFARCT, AGE INDETERMINATE [LQT] . PROLONGED QT INTERVAL Today's EKG #2 [EKG #5]: A-FLUTTER W/ PREDOM 2:1 AV BLOCK, A-RATE 211 [LVHREP] . LVH WITH SECONDARY REPOLARIZATION ABNORMALITY [AMI17] . ANTERIOR Q WAVES, POSSIBLY DUE TO LVH [BSTEI] . BORDERLINE ST ELEVATION, INFERIOR LEADS [LQT] . PROLONGED QT INTERVAL Labs- Entire Visit 01/18/20 01/18/20 01/18/20 19:00 19:00 19:00 WBC 8.2 RBC 4.77 Hgb 15.1 Hct 42.9 MCV 90 MCH 31.6 MCHC 35.1 RDW 13.3 Plt Count 183 Lymph % (Auto) 21.3 Leon % (Auto) 10.5 Eos % (Auto) 0.8 Baso % (Auto) 0.8 Absolute Neuts (auto) 5.4 Absolute Lymphs (auto) 1.7 Absolute Monos (auto) 0.9 Absolute Eos (auto) 0.1 Absolute Basos (auto) 0.1 Seg Neutrophils % 66.6 PT INR Sodium 133.5 L Potassium 4.5 Chloride 95 L Carbon Dioxide 27 Anion Gap 12 BUN 18 Creatinine 0.80 Est GFR ( Amer) > 60 Est GFR (MDRD) Non-Af > 60 Glucose 123 H Calcium 9.6 Magnesium Total Bilirubin 1.0 Direct Bilirubin 0.1 Neonat Total Bilirubin Not Reportable Neonat Direct Bilirubin Not Reportable Neonat Indirect Bili Not Reportable AST 27 ALT 16 Alkaline Phosphatase 119 Creatine Kinase 59 CK-MB (CK-2) 1.11 Troponin I 0.020 NT-Pro-B Natriuret Pep Total Protein 8.4 H Albumin 4.9 TSH 01/18/20 01/18/20 01/18/20 19:00 19:00 19:00 WBC RBC Hgb Hct MCV MCH MCHC RDW Plt Count Lymph % (Auto) Leon % (Auto) Eos % (Auto) Baso % (Auto) Absolute Neuts (auto) Absolute Lymphs (auto) Absolute Monos (auto) Absolute Eos (auto) Absolute Basos (auto) Seg Neutrophils % PT 13.4 INR 1.00 Sodium Potassium Chloride Carbon Dioxide Anion Gap BUN Creatinine Est GFR ( Amer) Est GFR (MDRD) Non-Af Glucose Calcium Magnesium 2.3 Total Bilirubin Direct Bilirubin Neonat Total Bilirubin Neonat Direct Bilirubin Neonat Indirect Bili AST ALT Alkaline Phosphatase Creatine Kinase CK-MB (CK-2) Troponin I NT-Pro-B Natriuret Pep Total Protein Albumin TSH 1.76 01/18/20 01/18/20 01/19/20 19:00 22:08 05:59 WBC RBC Hgb Hct MCV MCH MCHC RDW Plt Count Lymph % (Auto) Leon % (Auto) Eos % (Auto) Baso % (Auto) Absolute Neuts (auto) Absolute Lymphs (auto) Absolute Monos (auto) Absolute Eos (auto) Absolute Basos (auto) Seg Neutrophils % PT INR Sodium 134.0 L Potassium 3.8 Chloride 97 L Carbon Dioxide 24 Anion Gap 13 BUN 12 Creatinine 0.72 Est GFR ( Amer) > 60 Est GFR (MDRD) Non-Af > 60 Glucose 112 H Calcium 9.6 Magnesium 2.1 Total Bilirubin Direct Bilirubin Neonat Total Bilirubin Neonat Direct Bilirubin Neonat Indirect Bili AST ALT Alkaline Phosphatase Creatine Kinase CK-MB (CK-2) Troponin I 0.087 NT-Pro-B Natriuret Pep 3490 H Total Protein Albumin TSH 01/19/20 01/19/20 05:59 11:57 WBC RBC Hgb Hct MCV MCH MCHC RDW Plt Count Lymph % (Auto) Leon % (Auto) Eos % (Auto) Baso % (Auto) Absolute Neuts (auto) Absolute Lymphs (auto) Absolute Monos (auto) Absolute Eos (auto) Absolute Basos (auto) Seg Neutrophils % PT INR Sodium Potassium Chloride Carbon Dioxide Anion Gap BUN Creatinine Est GFR ( Amer) Est GFR (MDRD) Non-Af Glucose Calcium Magnesium Total Bilirubin Direct Bilirubin Neonat Total Bilirubin Neonat Direct Bilirubin Neonat Indirect Bili AST ALT Alkaline Phosphatase Creatine Kinase CK-MB (CK-2) Troponin I 0.316 0.247 NT-Pro-B Natriuret Pep Total Protein Albumin TSH Chest X-Ray 01/18/20 19:27 IMPRESSION: Mild pulmonary edema pattern, without pleural effusions or focal consolidation. IMPRESSION/RECOMMENDATION: 1. Atrial flutter with rapid ventricular response. Patient's heart rate is in the 110s. Patient is a Cardizem drip. Increase the Cardizem drip to 7.5 mg/h. The PICC continue the patient's Eliquis. As discussed with Dr. Olsen probably the patient can have a atrial flutter focus versus cardioversion at [facility]. 2. Elevated troponin I secondary to type II myocardial infarction [supply demand mismatch: This is not a acute coronary event. The troponins are trending down. This is most likely secondary to the patient's rapid heart rate in a patient with IHSS. 3. IHSS [HOCM): The patient has resting and provocative gradient, but is been sending the severity of this obstruction clinically very well without major symptoms. Will get a patient's echo report from [facility] and if not done within the last 6 months we will repeat one. 4. Severe mitral regurgitation: Patient may need this addressed at [facility] 6. Hypertension: Her blood hypertension is mild. Would recommend increasing the patient's Cardizem to 90 mg p.o. every 8 hours. 5. History of asthma. No evidence of acute asthmatic attack. Medications reviewed. Medical regimen management plan discussed with the attending provider on the case. Also case discussed with Dr. O[facility]. He has accepted the patient in transfer. Patient aware of the cathryn efits and risks of transfer. Medical decision making is of high complexity.
--- NOTE | 2020-01-19 16:21 | PDOC PROGRESS REPORT ---
Subjective Date:: 01/19/20 Subjective:: Patient with history of paroxysmal A. fib, COPD, hypertension, hyperlipidemia and hypertrophic cardiomyopathy. Presented for evaluation of palpitations, admitted for AFib with RVR. On diltiazem and Eliquis at home for Afib. Current treatment includes diltiazem drip and metoprolol. Her supervisor facepiece line is Dr. Ibrahim, onboard with case. Patient resting in bed comfortably. Current heart rate low 100s. She tells me that initial lightheadedness and shortness of breath on exertion have resolved, continues to complain of palpitations. Denies associated chest pain. Denies orthopnea, or PND. She tells me that her left ankle has appeared "fluffy" lately but otherwise denies lower extremity swelling. Expresses no further complaints or concerns. Discussed case with patient's nurse. She tells me that Dr. Pack has asked we avoid treating patient with lasix, nitro or digoxin. States that pt's HR has maintained in low 100s since administering Metoprolol IV. No further complaints or concerns at this time. Dr. Pack provided me with Echo results from 10/13/2019. Results as follows: - Consistent with hypertrophic cardiomyopathy - Resting pressure gradient LV 96 - Provoked pressure gradient LV 118 - LVH - LVEF 60-65% - Elevated LVEDP - Severe mitral regurgitation - Severely dilated left atrium - Trace tricuspid regurgitation Reason For Visit: ATRIAL FIBRILLATION WITH RVR Physical Exam Vital Signs: Temp Pulse Resp BP Pulse Ox 98.7 F 109 H 18 111/61 95 01/19/20 12:11 01/19/20 14:00 01/19/20 12:11 01/19/20 14:00 01/19/20 12:11 Intake & Output 01/18/20 01/19/20 01/20/20 06:59 06:59 06:59 Intake Total 1054 Output Total 750 Balance 304 Weight 54.7 kg General appearance: PRESENT: no acute distress, cooperative, well-developed, well-nourished Head exam: PRESENT: atraumatic, normocephalic Eye exam: PRESENT: conjunctiva pink. ABSENT: scleral icterus Mouth exam: PRESENT: dry mucosa, tongue midline Neck exam: PRESENT: full ROM. ABSENT: carotid bruit, JVD, tenderness Respiratory exam: PRESENT: clear to auscultation geeta, symmetrical, unlabored. ABSENT: chest wall tenderness, crackles, tachypnea, wheezes Cardiovascular exam: PRESENT: irregular rhythm, systolic murmur - At apex, radiates to axilla. Ejection murmur, left fourth interxostal space., tachycardia - Low 100s GI/Abdominal exam: PRESENT: soft. ABSENT: distended, organolmegaly, tenderness Extremities exam: PRESENT: full ROM. ABSENT: clubbing, pedal edema, tenderness Musculoskeletal exam: PRESENT: ambulatory, full ROM. ABSENT: deformity, dislocation Neurological exam: PRESENT: alert, awake, oriented to person, oriented to place, oriented to time Psychiatric exam: PRESENT: appropriate affect, normal mood Skin exam: PRESENT: dry, intact, warm Results Laboratory Results: 01/18/20 19:00 01/19/20 05:59 01/18/20 01/18/20 01/18/20 19:00 19:00 19:00 WBC 8.2 RBC 4.77 Hgb 15.1 Hct 42.9 MCV 90 MCH 31.6 MCHC 35.1 RDW 13.3 Plt Count 183 Seg Neutrophils % 66.6 Sodium 133.5 L Potassium 4.5 Chloride 95 L Carbon Dioxide 27 Anion Gap 12 BUN 18 Creatinine 0.80 Est GFR ( Amer) > 60 Glucose 123 H Calcium 9.6 Magnesium 2.3 Total Bilirubin 1.0 AST 27 Alkaline Phosphatase 119 Total Protein 8.4 H Albumin 4.9 TSH 01/18/20 01/19/20 19:00 05:59 WBC RBC Hgb Hct MCV MCH MCHC RDW Plt Count Seg Neutrophils % Sodium 134.0 L Potassium 3.8 Chloride 97 L Carbon Dioxide 24 Anion Gap 13 BUN 12 Creatinine 0.72 Est GFR ( Amer) > 60 Glucose 112 H Calcium 9.6 Magnesium 2.1 Total Bilirubin AST Alkaline Phosphatase Total Protein Albumin TSH 1.76 01/18/20 01/18/20 01/18/20 19:00 19:00 19:00 Creatine Kinase 59 CK-MB (CK-2) 1.11 Troponin I 0.020 NT-Pro-B Natriuret Pep 3490 H 01/18/20 01/19/20 01/19/20 22:08 05:59 11:57 Creatine Kinase CK-MB (CK-2) Troponin I 0.087 0.316 0.247 NT-Pro-B Natriuret Pep Impressions: Chest X-Ray 01/18/20 19:27 IMPRESSION: Mild pulmonary edema pattern, without pleural effusions or focal consolidation. Assessment and Plan - Diagnosis (1) Atrial fibrillation with RVR Is this a current diagnosis for this admission?: Yes Plan: EKG on presentation showed A. fib with RVR with a heart rate in the 140s. Cardiology, Dr. Pack, onboard. - Diltiazem drip - Single dose Metoprolol 5mg IV. 100 < HR < 110 since Continue telemetry monitoring Continue anticoagulation (2) Elevated troponin level Is this a current diagnosis for this admission?: Yes Plan: In the absence of ACS. Likely secondary to demand mismatch (Atrial fibrillation) Troponin 0.02 -> 0.087 -> 0.316 -> 0.247 Tx as above. (3) Elevated brain natriuretic peptide (BNP) level Is this a current diagnosis for this admission?: Yes Plan: BNP 3490. No previous value for comparison. Secondary to Afib. Patient does not clinically appear to be in acute heart failure. Echo 10/13/2019: LVEF 60-65%, further results as above. Cardiology on board. As per avoid lasix. (4) Hypertrophic obstructive cardiomyopathy (HOCM) Is this a current diagnosis for this admission?: Yes Plan: Systolic high flow murmur at the left fourth intercostal space. Cardiology onboard, appreciate recommendations and guidance. Avoid nitrates. (5) HLD (hyperlipidemia) Is this a current diagnosis for this admission?: Yes Plan: Home medication includes: Pravastatin. Continue while inpatient. (6) COPD (chronic obstructive pulmonary disease) Is this a current diagnosis for this admission?: Yes Plan: Without clinical indication of exacerbation. Continue albuterol inhaler as needed. (7) HTN (hypertension) Qualifiers: Hypertension type: unspecified Qualified Code(s): I10 - Essential (primary) hypertension Is this a current diagnosis for this admission?: Yes Plan: Blood pressure consistently 120-140/60-70s. Continue home medications at this time. Continue to monitor. - Time Time Spent with patient: 25-34 minutes Medications reviewed and adjusted accordingly: Yes Anticipated Discharge Disposition: Possible transfer Anticipated Discharge Timeframe: within 48 hours
--- NOTE | 2020-01-19 17:26 | PDOC TRANSFER SUMMARY ---
General Admission Date/PCP: 01/18/20 22:46 VINCENZO RIOS MD Admission Date: 01/18/20 Transfer Date: 01/18/20 Accepting Facility: [facility] Accepting Physician: Dr. Olsen Resuscitation Status: Full Code - Transfer Diagnosis (1) Atrial fibrillation with RVR Is this a current diagnosis for this admission?: Yes Diagnosis Summary: EKG on presentation showed A. fib with RVR with a heart rate in the 140s. Herat rate currently 110s. Current treatment: Cardizem drip 7.5mg/h. Has received 2 total doses of metoprolol IV thus far. Cardiology, Dr. Pack, onboard. - Discussed case with Dr. Olsen at [facility], will accept patient - PLAN: Atrial flutter ficus versus cardioversion (2) Elevated troponin level Is this a current diagnosis for this admission?: Yes Diagnosis Summary: In the absence of ACS. Likely secondary to demand mismatch (Atrial fibrillation) Troponin 0.02 -> 0.087 -> 0.316 -> 0.247 (3) Elevated brain natriuretic peptide (BNP) level Is this a current diagnosis for this admission?: Yes Diagnosis Summary: BNP 3490. No previous value for comparison. Secondary to Afib. Patient does not clinically appear to be in acute heart failure. Echo 10/13/2019: LVEF 60-65%, further results as above. Cardiology on board. As per avoid lasix. (4) Hypertrophic obstructive cardiomyopathy (HOCM) Is this a current diagnosis for this admission?: Yes Diagnosis Summary: As per Echo 10/2019 IHSS with resting gradient of 96mmHg and a provocative gradiate of 118mmHg. Without major symptoms. (5) Mitral regurgitation Is this a current diagnosis for this admission?: Yes Diagnosis Summary: As per Echo 10/2019: Severe mitral regurg noted. With systolic murmur apex heart radiating to axilla. As per cardio may need addressed at [facility]. (6) HTN (hypertension) Is this a current diagnosis for this admission?: Yes Diagnosis Summary: Blood pressure consistently 120-140/60-70s. As per cardiology: increase Cardizem to 90mg PO q 8hrs. (7) HLD (hyperlipidemia) Is this a current diagnosis for this admission?: Yes Diagnosis Summary: Home medication includes: Pravastatin. Continue while inpatient. (8) COPD (chronic obstructive pulmonary disease) Is this a current diagnosis for this admission?: Yes Diagnosis Summary: Without clinical indication of exacerbation. Continue albuterol inhaler as needed. - Transfer Medications Home Medications: Calcium Carbonate/Vitamin D3 [Calcium 600-Vit D3 500 Softgel] 1 cap PO QPM 04/06/19 Carboxymethyl/Gly/Poly80/Pf [Refresh Optive Advanced Drops] 1 each OU DAILY 04/06/19 Cetirizine HCl [Zyrtec 10 mg Tablet] 1 tab PO QPM 04/06/19 Ergocalciferol (Vitamin D2) [Vitamin D2] 50,000 unit PO WE@1800 04/06/19 Famotidine [Pepcid 20 mg Tablet] 20 mg PO BID 04/06/19 Pravastatin Sodium [Pravachol] 10 mg PO QPM 04/06/19 Diltiazem HCl [Diltiazem 12Hr ER] 90 mg PO Q8 01/19/20 Guaifenesin [Mucinex Sr 600 mg Tablet.sa] 600 mg PO DAILY 01/19/20 Transfer Medications: Current Medications Acetaminophen (Tylenol 325 Mg Tablet) 650 mg PO Q4HP PRN PRN Reason: FOR PAIN SCALE 2-4 Stop: 02/17/20 22:46 Apixaban (Eliquis 5 Mg Tablet) 5 mg PO BID [facility] Stop: 02/18/20 09:59 Last Admin: 01/19/20 09:30 Dose: 5 mg Documented by: Aspirin (Aspirin 81 Mg Chewable Tablet) 81 mg PO DAILY LAM Stop: 02/18/20 09:59 Last Admin: 01/19/20 09:29 Dose: 81 mg Documented by: Atorvastatin Calcium (Lipitor 80 Mg Tablet) 80 mg PO QHS LAM Stop: 02/18/20 21:59 Famotidine (Pepcid 20 Mg Tablet) 20 mg PO Q12 LAM Stop: 02/17/20 22:59 Last Admin: 01/19/20 09:29 Dose: 20 mg Documented by: Diltiazem HCl (Cardizem Rtu Inj 125 Mg-D5w 125 Ml Premix) 125 mg in 125 mls @ 5 mls/hr IV CONTINUOUS PRN Stop: 02/18/20 01:08 Last Admin: 01/19/20 01:00 Dose: 2.5 mg/hr, 2.5 mls/hr Documented by: - Allergies Allergies/Adverse Reactions: codeine [Codeine] Allergy (Unknown, Verified 06/18/16 19:08) morphine [Morphine] Allergy (Unknown, Verified 06/18/16 19:08) Penicillins Allergy (Unknown, Verified 06/18/16 19:08) Rash captopril Allergy (Verified 06/19/16 07:11) Angioneurotic Edema nitroglycerin Adverse Reaction (Verified 06/22/16 13:02) - Diet/Activity Discharge Diet: As Tolerated Discharge Activity: Activity As Tolerated Hospital Course Hospital Course: TAIWO DAVIDSON is a 74 year old female with a history of paroxysmal A. fib, COPD, hypertension, hyperlipidemia and hypertrophic cardiomyopathy who was admitted to the hospital service at [facility] on 01/18/2020 for evaluation and treatment of Afib RVR with associated SOB on exertion; without chest pain. Outpatient Afib treatment include Cardizem 90mg and Eliquis. Upon onset of symptoms patient treated with extra dose Cardizem 90mg without relief of p alpitations. In the ED she was started on Diltiazem drip, which we have continued at rate of 7.5mg/h. Patient received single dose of Metoprolol IV in the ED and apparently experienced drop in heart rate to 60-70s, eventually returning to heart rate 140s. She has since received a second dose of Metoprolol 5mg IV, with heart rate consistently 110s. Elevated troponins on initial presentation, have since trended downward. Likely secondary to type II CO. Patient has been without chest pain prior and during entire hospital course thus far. She had an echocardiogram on 10/13/2019 at [facility], results were reviewed. No echo today as echo within 6 months. Patient is followed by Dr. Ibrahim, cariology, in the outpatient setting, he was consulted and followed with patient's care entire hospital course. Additionally Dr. Pack contacted Dr. Olsen, [facility], and arranged for patient to be transferred for atrial flutter focus versus cardioversion. Physical Exam Vital Signs: Temp Pulse Resp BP Pulse Ox 98.1 F 109 H 22 H 133/62 H 98 01/19/20 15:08 01/19/20 16:00 01/19/20 15:08 01/19/20 16:00 01/19/20 15:08 Intake & Output 01/18/20 01/19/20 01/20/20 06:59 06:59 06:59 Intake Total 1054 Output Total 750 Balance 304 Weight 54.7 kg Additional comments: General appearance: PRESENT: no acute distress, cooperative, well-developed, well-nourished Head exam: PRESENT: atraumatic, normocephalic Eye exam: PRESENT: conjunctiva pink. ABSENT: scleral icterus Mouth exam: PRESENT: dry mucosa, tongue midline Neck exam: PRESENT: full ROM. ABSENT: carotid bruit, JVD, tenderness Respiratory exam: PRESENT: clear to auscultation geeta, symmetrical, unlabored. ABSENT: chest wall tenderness, crackles, tachypnea, wheezes Cardiovascular exam: PRESENT: irregular rhythm, systolic murmur - At apex, radiates to axilla. Ejection murmur, left fourth interxostal space., tachycardia - Low 100s GI/Abdominal exam: PRESENT: soft. ABSENT: distended, organolmegaly, tenderness Extremities exam: PRESENT: full ROM. ABSENT: clubbing, pedal edema, tenderness Musculoskeletal exam: PRESENT: ambulatory, full ROM. ABSENT: deformity, dislocation Neurological exam: PRESENT: alert, awake, oriented to person, oriented to place, oriented to time Psychiatric exam: PRESENT: appropriate affect, normal mood Skin exam: PRESENT: dry, intact, warm Results Laboratory Results: 01/18/20 19:00 01/19/20 05:59 01/18/20 01/18/20 01/18/20 19:00 19:00 19:00 WBC 8.2 RBC 4.77 Hgb 15.1 Hct 42.9 MCV 90 MCH 31.6 MCHC 35.1 RDW 13.3 Plt Count 183 Seg Neutrophils % 66.6 Sodium 133.5 L Potassium 4.5 Chloride 95 L Carbon Dioxide 27 Anion Gap 12 BUN 18 Creatinine 0.80 Est GFR ( Amer) > 60 Glucose 123 H Calcium 9.6 Magnesium 2.3 Total Bilirubin 1.0 AST 27 Alkaline Phosphatase 119 Total Protein 8.4 H Albumin 4.9 TSH 01/18/20 01/19/20 19:00 05:59 WBC RBC Hgb Hct MCV MCH MCHC RDW Plt Count Seg Neutrophils % Sodium 134.0 L Potassium 3.8 Chloride 97 L Carbon Dioxide 24 Anion Gap 13 BUN 12 Creatinine 0.72 Est GFR ( Amer) > 60 Glucose 112 H Calcium 9.6 Magnesium 2.1 Total Bilirubin AST Alkaline Phosphatase Total Protein Albumin TSH 1.76 01/18/20 01/18/20 01/18/20 19:00 19:00 19:00 Creatine Kinase 59 CK-MB (CK-2) 1.11 Troponin I 0.020 NT-Pro-B Natriuret Pep 3490 H 01/18/20 01/19/20 01/19/20 22:08 05:59 11:57 Creatine Kinase CK-MB (CK-2) Troponin I 0.087 0.316 0.247 NT-Pro-B Natriuret Pep Impressions: Chest X-Ray 01/18/20 19:27 IMPRESSION: Mild pulmonary edema pattern, without pleural effusions or focal consolidation. Plan Discharge Plan: Patient will be transferred to [facility], osteopathic medicine teacher service, for continued management of A. fib RVR. Dr. Olsen of [facility] has agreed to accept the patient as transfer. Discussed with patient. She is made aware of benefits and risks associated with transfer. She is understanding and agrees to plan of treatment. Continue Cardizem drip 7.5mg/h and telemetry monitoring until transfer completed. Time Spent: Greater than 30 Minutes
[2020-01-19] MEDS: ATORVASTATIN CALCIUM 80 MG TABLET PO SCH (21:21)
--- NOTE | 2020-01-19 22:59 | EKG REPORT ---
SEVERITY:- ABNORMAL ECG - ATRIAL FLUTTER, A-RATE 223 LEFT VENTRICULAR HYPERTROPHY ANTERIOR INFARCT, AGE INDETERMINATE PROLONGED QT INTERVAL : Confirmed by: Josh Wells 19-Jan-2020 22:58:35
--- NOTE | 2020-01-19 22:59 | EKG REPORT ---
SEVERITY:- ABNORMAL ECG - A-FLUTTER W/ PREDOM 2:1 AV BLOCK, A-RATE 211 LVH WITH SECONDARY REPOLARIZATION ABNORMALITY ANTERIOR Q WAVES, POSSIBLY DUE TO LVH BORDERLINE ST ELEVATION, INFERIOR LEADS PROLONGED QT INTERVAL : Confirmed by: Josh Wells 19-Jan-2020 22:58:24
--- NOTE | 2020-01-19 23:00 | EKG REPORT ---
SEVERITY:- ABNORMAL ECG - ATRIAL FIBRILLATION LVH WITH SECONDARY REPOLARIZATION ABNORMALITY ANTERIOR INFARCT, AGE INDETERMINATE : Confirmed by: Josh Wells 19-Jan-2020 22:59:32
[2020-01-20] MEDS: DILTIAZEM HCL/D5W 125 MG/125 ML RTUINJ IV PRN (09:32)
[2020-01-20] MEDS: ASPIRIN 81 MG TABLET, CHEWABLE PO SCH (09:33)
[2020-01-20] MEDS: FAMOTIDINE 20 MG TABLET PO SCH ×2 (09:33→21:05)
[2020-01-20] MEDS: APIXABAN 5 MG TABLET PO SCH ×2 (09:33→17:18)
--- NOTE | 2020-01-20 13:24 | PDOC PROGRESS REPORT ---
Subjective Date:: 01/20/20 Subjective:: Discussed back in bed from the commode. Tachycardic in the 120s. No chest pain . Reason For Visit: ATRIAL FIBRILLATION WITH RVR Physical Exam Vital Signs: Temp Pulse Resp BP Pulse Ox 97.8 F 120 H 18 123/97 H 99 01/20/20 08:25 01/20/20 11:00 01/20/20 08:25 01/20/20 11:00 01/20/20 08:25 Intake & Output 01/19/20 01/20/20 01/21/20 06:59 06:59 06:59 Intake Total 1054 1580 Output Total 750 1775 Balance 304 -195 Weight 54.7 kg 58.1 kg General appearance: PRESENT: cooperative, mild distress, well-developed Head exam: PRESENT: atraumatic, normocephalic Eye exam: PRESENT: conjunctiva pink. ABSENT: scleral icterus Ear exam: PRESENT: normal external ear exam. ABSENT: bleeding, drainage Neck exam: ABSENT: carotid bruit, JVD, lymphadenopathy Respiratory exam: PRESENT: clear to auscultation geeta, symmetrical, unlabored. ABSENT: rales, rhonchi, tachypnea, wheezes Cardiovascular exam: PRESENT: irregular rhythm, tachycardia. ABSENT: bradycardia, diastolic murmur, RRR GI/Abdominal exam: PRESENT: normal bowel sounds, soft. ABSENT: distended, guarding, tenderness Rectal exam: PRESENT: deferred Gentrourinary exam: ABSENT: indwelling catheter Extremities exam: ABSENT: calf tenderness, pedal edema Musculoskeletal exam: PRESENT: ambulatory, normal inspection. ABSENT: deformity, dislocation Neurological exam: PRESENT: alert, awake, oriented to person, oriented to place, oriented to time, oriented to situation, CN II-XII grossly intact. ABSENT: altered Psychiatric exam: PRESENT: appropriate affect. ABSENT: agitated, anxious Focused psych exam: ABSENT: delusional, paranoid, restlessness Skin exam: PRESENT: dry, normal color, warm. ABSENT: rash Results Laboratory Results: 01/18/20 19:00 01/19/20 05:59 01/18/20 01/18/20 01/18/20 19:00 19:00 19:00 Creatine Kinase 59 CK-MB (CK-2) 1.11 Troponin I 0.020 NT-Pro-B Natriuret Pep 3490 H 01/18/20 01/19/20 01/19/20 22:08 05:59 11:57 Creatine Kinase CK-MB (CK-2) Troponin I 0.087 0.316 0.247 NT-Pro-B Natriuret Pep Impressions: Chest X-Ray 01/18/20 19:27 IMPRESSION: Mild pulmonary edema pattern, without pleural effusions or focal consolidation. Assessment and Plan - Diagnosis (1) Atrial fibrillation with RVR Is this a current diagnosis for this admission?: Yes (2) Elevated troponin level Is this a current diagnosis for this admission?: Yes (3) Elevated brain natriuretic peptide (BNP) level Is this a current diagnosis for this admission?: Yes (4) Hypertrophic obstructive cardiomyopathy (HOCM) Is this a current diagnosis for this admission?: Yes (5) HTN (hypertension) Qualifiers: Hypertension type: unspecified Qualified Code(s): I10 - Essential (primary) hypertension Is this a current diagnosis for this admission?: Yes (6) Mitral regurgitation Qualifiers: Cardiac valve disease etiology: etiology unspecified Qualified Code(s): I34.0 - Nonrheumatic mitral (valve) insufficiency Is this a current diagnosis for this admission?: Yes (7) COPD (chronic obstructive pulmonary disease) Qualifiers: COPD type: unspecified COPD Qualified Code(s): J44.9 - Chronic obstructive pulmonary disease, unspecified Is this a current diagnosis for this admission?: Yes (8) HLD (hyperlipidemia) Is this a current diagnosis for this admission?: Yes - Plan Summary Summary: 01/20/2020 The patient has been accepted by her route salesperson at [facility] pending bed availability. Atrial fibrillation with RVR-currently on diltiazem infusion with heart rates tending in the low 100s. They do increased to the 120s with exertion. Continue diltiazem. Anticoagulation with apixaban 5 mg twice a day. Elevated troponin-peaked at 0.316 and is trending down Elevated brain natruretic peptide-echocardiogram did not reveal any evidence of failure. Patient clinically is not in failure. Likely elevated from arrhythmia. HOCN-currently stable. Defer to route salesperson at [facility]. Hypertension-reasonable blood pressure control on current regimen Hyperlipidemia-continue statin therapy COPD-asymptomatic at this time. Patient is adequately oxygenating on room air - Time Time Spent with patient: 15-24 minutes Medications reviewed and adjusted accordingly: Yes Anticipated Discharge Disposition: Tertiary - Awaiting bed at [facility] Anticipated Discharge Timeframe: within 24 hours - Hopefully today
--- NOTE | 2020-01-20 17:51 | EKG REPORT ---
SEVERITY:- ABNORMAL ECG - ATRIAL FLUTTER/FIBRILLATION, A-RATE 250 LVH WITH SECONDARY REPOLARIZATION ABNORMALITY PROBABLE INFERIOR INFARCT, OLD ANTERIOR Q WAVES, POSSIBLY DUE TO LVH BORDERLINE PROLONGED QT INTERVAL : Confirmed by: Josh Wells 20-Jan-2020 17:50:32
[2020-01-20] MEDS ORDERED: FAMOTIDINE 20 MG TABLET PO SCH (18:00)
[2020-01-20] MEDS ORDERED: CETIRIZINE 10 MG TABLET PO SCH (18:00)
--- NOTE | 2020-01-20 18:53 | Progress Note ---
Provider Note Provider Note: CARDIOLOGY PROGRESS NOTE by Dr. Chio Ibrahim on 01/20/2020. OBJECTIVE: The patient continues to be in atrial flutter with a ventricular response in the 120s. She denies any shortness of breath chest pain or discomfort. There is no PND orthopnea. There is no pauses or AV blocks there is no dizziness or near syncope or syncope. There is no bleeding on Eliquis. There is no TIA CVA symptoms. The patient still waiting for bed to be transferred to [place]. PHYSICAL EXAMINATION: The patient is well-built and well-nourished. At present in no acute distress Selected Entries 01/20/20 01/20/20 14:59 16:00 Pulse Rate 124 H 124 H Respiratory 18 Rate Blood Pressure 127/74 H 131/64 H Blood Pressure 91 86 Mean BP Location Right Arm BP Position Sitting O2 Sat by Pulse 97 Oximetry Oxygen Delivery Room Air Method HEAD: Is atraumatic normocephalic. EYES: Pupils are equal round regular reactive to light accommodation. Extraocular movements are normal there is no conjunctival pallor. There is no scleral icterus. EARS: Tympanic membranes are intact. External auditory canals are clear. NOSE: There is no deviated nasal septum. There is no inflammation nasal mucous membrane. MOUTH: Mucous membranes of the mouth are moist. Tongue is moist. There is no ulcers. THROAT: There is no redness of the oropharynx. There is no exudates. SKIN: There is no petechia or ecchymosis. There is no skin rashes or skin lesions. NECK: Supple. There is no JVD. Carotids are equal there is no bruit. There is no lymphadenopathy. There is no goiter. There is no accessory muscle respiration use. Trachea central. LUNGS: Is clear to auscultation percussion without any rhonchi rales or wheezing. HEART: S1-S2 is heard. S1 is of variable intensity there is no S3 gallop. There is no S4 gallop present. There is systolic murmur in the aortic area which increases with handgrip and Valsalva. There is systolic murmur of mitral regurgitation present. This is clearly secondary to the patient's HOCM [I HSS]. There is no rub. Abdomen is soft. Nontender. There is no hepatosplenomegaly. Bowel sounds are well heard. There is no tender areas or masses. EXTREMITIES: Femorals well felt. Leg pulses well felt. There is no pedal edema. There is no DVT or cellulitis. There is no cyanosis or clubbing. There is no calf tenderness. INTERNATIONAL FLIGHT ATTENDANT: The patient is conscious awake alert oriented x3 with no focal focal deficits. PSYCHIATRIC: The patient judgment and insight are intact. Her affect is normal. Chest X-Ray 01/18/20 19:27 IMPRESSION: Mild pulmonary edema pattern, without pleural effusions or focal consolidation. IMPRESSION/RECOMMENDATION: 1. Atrial flutter with rapid ventricular response. Patient's heart rate is in the 120s. Patient is a Cardizem drip. Increase the Cardizem drip to 15 mg/h. The PICC continue the patient's Eliquis. As discussed with Dr. Olsen probably the patient can have a atrial flutter focus versus cardioversion at [facility]. 2. Elevated troponin I secondary to type II myocardial infarction [supply demand mismatch: This is not a acute coronary event. The troponins are trending down. This is most likely secondary to the patient's rapid heart rate in a patient with IHSS. 3. IHSS [HOCM): The patient has resting and provocative gradient, but is been sending the severity of this obstruction clinically very well without major symptoms. Will get a patient's echo report from [facility] and if not done within the last 6 months we will repeat one. 4. Severe mitral regurgitation: Patient may need this addressed at [facility] 6. Hypertension: Her blood hypertension is mild. Would recommend increasing the patient's Cardizem to 90 mg p.o. every 8 hours. 5. History of asthma. No evidence of acute asthmatic attack. Medications reviewed. Medications adjusted. Medical decision making is of high complexity. 40 minutes spent as patient more than 50% of time spent in direct patient care. Discussed the case with the hospitalist taking care of the patient. Awaiting bed for transfer. Will sign off.. Will follow the patient in the office
[2020-01-20] MEDS: ATORVASTATIN CALCIUM 80 MG TABLET PO SCH (21:05)
[2020-01-21] MEDS: DILTIAZEM HCL/D5W 125 MG/125 ML RTUINJ IV PRN ×2 (04:30→12:51)
[2020-01-21 07:39] LABS: ANION GAP 12 (5-19); BLOOD UREA NITROGEN 13 mg/dL (7-20); CALCIUM 9.1 mg/dL (8.4-10.2); CARBON DIOXIDE 23 mmol/L (22-30); CHLORIDE 93 mmol/L (98-107); GLUCOSE 94 mg/dL (75-110); POTASSIUM 3.8 mmol/L (3.6-5.0)
[2020-01-21] MEDS: FAMOTIDINE 20 MG TABLET PO SCH (09:53)
[2020-01-21] MEDS: APIXABAN 5 MG TABLET PO SCH (09:53)
[2020-01-21] MEDS: ASPIRIN 81 MG TABLET, CHEWABLE PO SCH (09:53)
[2020-01-21] MEDS: GUAIFENESIN 600 MG TABLET.SA PO SCH ×2 (09:53→09:57)
--- NOTE | 2020-01-21 10:09 | PDOC PROGRESS REPORT ---
Subjective Date:: 01/21/20 Subjective:: Resting comfortably. With increase in diltiazem the patient's heart rate and bl ood pressure are much improved. Reason For Visit: ATRIAL FIBRILLATION WITH RVR Physical Exam Vital Signs: Temp Pulse Resp BP Pulse Ox 97.4 F 77 18 112/49 L 96 01/21/20 09:23 01/21/20 08:00 01/21/20 07:56 01/21/20 08:00 01/21/20 07:56 Intake & Output 01/20/20 01/21/20 01/22/20 06:59 06:59 06:59 Intake Total 1580 1095 Output Total 1775 300 Balance -195 795 Weight 58.1 kg 58.2 kg General appearance: PRESENT: no acute distress, cooperative, well-developed Head exam: PRESENT: atraumatic, normocephalic Ear exam: PRESENT: normal external ear exam. ABSENT: bleeding, drainage Mouth exam: PRESENT: moist, tongue midline Teeth exam: ABSENT: poor dentation Neck exam: ABSENT: carotid bruit, JVD, lymphadenopathy Respiratory exam: PRESENT: clear to auscultation geeta, symmetrical, unlabored. ABSENT: rales, rhonchi, tachypnea, wheezes Cardiovascular exam: PRESENT: bradycardia, diastolic murmur, RRR - Rhythm was quite regular by auscultation this morning, +S1, +S2, systolic murmur - 3/6. ABSENT: tachycardia GI/Abdominal exam: PRESENT: normal bowel sounds, soft. ABSENT: distended, guarding, tenderness Rectal exam: PRESENT: deferred Gentrourinary exam: ABSENT: indwelling catheter Extremities exam: ABSENT: pedal edema Musculoskeletal exam: PRESENT: ambulatory, normal inspection. ABSENT: deformity, dislocation Neurological exam: PRESENT: alert, awake, oriented to person, oriented to place, oriented to time, oriented to situation, CN II-XII grossly intact. ABSENT: altered Psychiatric exam: PRESENT: appropriate affect. ABSENT: agitated, anxious Focused psych exam: ABSENT: delusional, paranoid, restlessness Skin exam: PRESENT: dry, normal color, warm. ABSENT: rash Results Laboratory Results: 01/18/20 19:00 01/21/20 06:13 01/21/20 06:13 Sodium 127.7 L Potassium 3.8 Chloride 93 L Carbon Dioxide 23 Anion Gap 12 BUN 13 Creatinine 0.75 Est GFR ( Amer) > 60 Glucose 94 Calcium 9.1 Magnesium 2.1 01/18/20 01/18/20 01/18/20 19:00 19:00 19:00 Creatine Kinase 59 CK-MB (CK-2) 1.11 Troponin I 0.020 NT-Pro-B Natriuret Pep 3490 H 01/18/20 01/19/20 01/19/20 22:08 05:59 11:57 Creatine Kinase CK-MB (CK-2) Troponin I 0.087 0.316 0.247 NT-Pro-B Natriuret Pep Impressions: Chest X-Ray 01/18/20 19:27 IMPRESSION: Mild pulmonary edema pattern, without pleural effusions or focal consolidation. Assessment and Plan - Diagnosis (1) Atrial fibrillation with RVR Is this a current diagnosis for this admission?: Yes (2) Elevated troponin level Is this a current diagnosis for this admission?: Yes (3) Elevated brain natriuretic peptide (BNP) level Is this a current diagnosis for this admission?: Yes (4) Hypertrophic obstructive cardiomyopathy (HOCM) Is this a current diagnosis for this admission?: Yes (5) HTN (hypertension) Qualifiers: Hypertension type: unspecified Qualified Code(s): I10 - Essential (primary) hypertension Is this a current diagnosis for this admission?: Yes (6) Mitral regurgitation Qualifiers: Cardiac valve disease etiology: etiology unspecified Qualified Code(s): I34.0 - Nonrheumatic mitral (valve) insufficiency Is this a current diagnosis for this admission?: Yes (7) COPD (chronic obstructive pulmonary disease) Qualifiers: COPD type: unspecified COPD Qualified Code(s): J44.9 - Chronic obstructive pulmonary disease, unspecified Is this a current diagnosis for this admission?: Yes (8) HLD (hyperlipidemia) Is this a current diagnosis for this admission?: Yes - Plan Summary Summary: 01/20/2020 The patient has been accepted by her automation qa tester at [facility] pending bed availability. Atrial fibrillation with RVR-currently on diltiazem infusion with heart rates tending in the low 100s. They do increased to the 120s with exertion. Continue diltiazem. Anticoagulation with apixaban 5 mg twice a day. Elevated troponin-peaked at 0.316 and is trending down Elevated brain natruretic peptide-echocardiogram did not reveal any evidence of failure. Patient clinically is not in failure. Likely elevated from arrhythmia. HOCN-currently stable. Defer to automation qa tester at [facility]. Hypertension-reasonable blood pressure control on current regimen Hyperlipidemia-continue statin therapy COPD-asymptomatic at this time. Patient is adequately oxygenating on room air 01/21/2020 Doing much better on the increased dose of diltiazem infusion. No other changes since the original transfer summary was dictated - Time Time Spent with patient: 15-24 minutes Medications reviewed and adjusted accordingly: Yes Anticipated Discharge Disposition: Tertiary Anticipated Discharge Timeframe: within 24 hours Disposition: Transferring to [facility]
[2020-01-21 17:33] VITALS: BP 124/63
[2020-01-21] MEDS ORDERED: ERGOCALCIFEROL (VITAMIN D2) 50000 UNIT (1.25 MG) CAPSULE PO SCH (18:00)
== END 2020-01-21 17:53 | disposition short-term general hospital (02) | DRG 310 ==
LOC: ER 18:44 → INTOOBSV 22:46 → EH 22:46 → OBSVTOIN 22:46 → 3W 01-19 00:19 → OBSVTOIN 01-20 17:38
PROVIDERS: ADMIT Student in an Organized Health Care Education/Training Program; ATTEND Hospitalist
DX: I48.0 Paroxysmal atrial fibrillation (principal); I42.1 Obstructive hypertrophic cardiomyopathy; I34.0 Nonrheumatic mitral (valve) insufficiency; I10 Essential (primary) hypertension; E78.5 Hyperlipidemia, unspecified; J44.9 Chronic obstructive pulmonary disease, unspecified; K21.9 Gastro-esophageal reflux disease without esophagitis; R00.1 Bradycardia, unspecified; Z20.828 Contact with and (suspected) exposure to other viral communicable diseases; Z79.899 Other long term (current) drug therapy; Z88.6 Allergy status to analgesic agent; Z88.0 Allergy status to penicillin; Z88.8 Allergy status to other drugs, medicaments and biological substances; Z85.828 Personal history of other malignant neoplasm of skin; Z79.82 Long term (current) use of aspirin; Z79.01 Long term (current) use of anticoagulants
CPT/HCPCS: 36415; 71045; 80048; 80053; 82550; 82553; 83735; 83880; 84443; 84484; 85025; 85610; 87635; 93005; 93010; 96365; 96366; 96375; 99285; C9803; G0378; J1940; J3490; J7030